=== PATIENT | female | born 1960 | race Caucasian/White ===

== ENCOUNTER 2020-07-06 07:28 | Outpatient (CLI) | payer OTHER, SELFPAY ==
--- NOTE | ~2020-07-06 | MR_ITS ---
EXAMINATION: MR knee RT wo con DATE: 07/06/2020 08:28 INDICATION: Right knee pain. TECHNIQUE: Magnetic resonance imaging (MRI) of the right knee was performed without intravenous contr ast. Sequences included axial PD-weighted FS FSE, coronal PD-weighted FSE and PD-weighted FS FSE, sag ittal PD-weighted FSE, and sagittal T2-weighted FS FSE. COMPARISON: Right knee radiographs 06/30/2020 FINDINGS: Medial compartment: There is a vertical tear of the posterior horn of medial meniscus. There is partial-thickness cartila ge loss of tibial condyle, deep at the medial articular surface with mild subchondral edema-like sign al intensity. There is full-thickness cartilage loss of femoral condyle at the central articular surf jaylon with moderate subchondral edema-like marrow signal intensity and subchondral cysts. There is exte nsive partial thickness cartilage loss of femoral condyle. Osteophytes are noted. Lateral compartment: Lateral meniscus is normal. There is cartilage surface irregularity of tibial condyle and femoral con dyle. Marginal osteophytes are noted. Patellofemoral compartment: There is full-thickness cartilage loss of patella involving the medial facet and median ridge with mi ld subchondral edema-like marrow signal intensity. There is shallow partial-thickness cartilage loss of patellar lateral facet with mild subchondral edema-like marrow signal intensity. There is deep par tial thickness cartilage loss of lateral trochlea. Osteophytes are noted. Ligaments and tendons: The anterior and posterior cruciate ligaments are normal. Medial collateral ligament and lateral mikey ateral ligament complex are normal. There is mild patellar tendinopathy. Fluid: There is a moderate-sized knee joint effusion. There is trace fluid in a Medley's cyst. There is mild prepatellar and superficial infrapatellar bursitis. Osseous/other: There is a 16 mm lesion of increased T2-weighted signal intensity in medial femoral condyle without c orrelate on radiographs, most likely an enchondroma. IMPRESSION: 1. Severe chondrosis of medial and patellofemoral compartments and mild chondrosis of lateral compart ment. 2. Tear of medial meniscus. 3. Moderate-sized knee joint effusion. 4. 16 mm lesion in medial femoral condyle without correlate on radiographs, most likely an enchondrom a. Reviewed, dictated and finalized at location A. [facility] IMPRESSION: 1. Severe chondrosis of medial and patellofemoral compartments and mild chondro sis of lateral compartment. 2. Tear of medial meniscus. 3. Moderate-sized knee joint effusion. 4. 16 mm lesion in medial femoral condyle without correlate on radiographs, mos t likely an enchondroma.
== END 2020-07-06 07:29 | disposition home or self-care (01) ==
PROVIDERS: PCP Internal Medicine; Visit Provider Orthopaedic Surgery
DX: M25.461 Effusion, right knee (principal); S83.241A Other tear of medial meniscus, current injury, right knee, initial encounter; X58.XXXA Exposure to other specified factors, initial encounter
CPT/HCPCS: 73721

== ENCOUNTER 2022-06-02 09:13 | Outpatient (CLI) | payer OTHER, SELFPAY ==
--- NOTE | 2022-06-02 11:30 | NEURO_ITS ---
Impression: # History of left carpal tunnel and cubital tunnel release. c/o residual numbness and pain # No Carpal Tunnel Syndrome. # Left ulnar neuropathy across the elbow. # Needle/EMG mildly neurogenic in left ADM. # Clinical correlation recommended. Motor Nerve Conduction Upper Extremities Median Nerve Conduction Velocity (m/sec) Terminal Latency (msec) Response Voltage(mV) Elbow-Wrist Wrist Elbow Wrist Right Left 61 3.1 2 3 Ulnar Nerve Conduction Velocity (m/sec) Terminal Latency (msec) Response Voltage(mV) Above Elbow Below Elbow Wrist Above Elbow Below Elbow Wrist Right Left 49 68 2.5 5 6 9 F-Wave Latency Median (ms) Ulnar (ms) Right Left 27.6 27.0 Sensory Nerve Conduction Upper Extremities Median Nerve Stimulation Terminal Latency (msec) Wrist/Digit Response Voltage (uV) Wrist Right Left 2.6/2.7 88/42 Ulnar Nerve Stimulation Terminal Latency (msec) Wrist/Digit Response Voltage (uV) Wrist Right Left 2.7 42 Radial Nerve Terminal Latency (msec) Response Voltage(mV) Right Left 1.8 33 Left Right Muscles Examined Fibrillation Fasciculation Scarcity Voltage Duration Left Right Left Right Left Right Left Right Left Right Deltoid Biceps X Brachioradialis Triceps X Pronator Teres X Ext Indicis X Ext Digitorum X Abd Poll Brev X 1st Dorsal Interosseus X Abd Dig MIn + >12MS MTDD
== END 2022-06-02 09:14 | disposition home or self-care (01) ==
PROVIDERS: PCP Internal Medicine; Visit Provider Nurse Practitioner
DX: R20.0 Anesthesia of skin (principal); G56.22 Lesion of ulnar nerve, left upper limb
CPT/HCPCS: 95886; 95909

== ENCOUNTER 2025-05-21 09:14 | Outpatient (CLI) | payer OTHER, SELFPAY ==
--- OUTSIDE RECORDS SUMMARY | 2009-12-16 08:45 | XMS_ITS | Continuity of Care Document ---
Author Organization [facility] Address [address] [place] [address] [address] [place] [address] Phone Care Team Providers Care Rod Buster Name Role Phone Condon OD, Saravanan Unavailable Unavailable Procedures Procedure Date Eye Exam & Treatment Refraction Eye Exam & Treatment Refraction Advance Directives Directive Yes / No Effective Date File Name No Information Encounters Encounter Description Practice Location Reason(s) For Visit Diagnoses Date Provider Providers Copied on Encounter [facility], [address] [place] [address] [address], [place], [place], [id number], tel:[phone] [facility] No Information Damir-0 2-201 0 Condon OD Saravanan. [address] [facility] , [address], [place], [address], [place]. tel:[phone] [facility], [address] [place] [address] [address], [place], [place], [id number], tel:[phone] [facility] No Information 0-200 8 Condon OD Saravanan. [address] [facility] , [address], [place], [address], [place]. tel:[phone] Family History Family Member Type Diagnosis Age At Onset No Information Payers Payer name Insurance type Covered constitution party ID Authorjamara kathi(s) Medicaid [facility] [id number] Social History Type Description Quantity Date Captured Comments Sex Female Smoking Status No Information Chief Complaint And Reason For Visit No Information Reason For Referral Reason For Referral No Information History Of Present Illness Encounter Date Complaint History Of Prese nt Illness No Information Functional Status Date Functional Assessmen t No Information Instructions Date Instruction Additional Infor mation No Information Assessments Type Assessment Date No Information Patient Care Teams Name Effective Dates (start - stop) Status Members No Information
--- OUTSIDE RECORDS SUMMARY | 2025-05-21 09:52 | XMS_ITS | Encounter Summary ---
Author Organization [facility] Address [address] [place] [address] Care Team Providers Care Parlor Chaperone Name Role Phone Daniella Ortiz MD Primary Care Provider [phone] Encounter Details Date Type Department Care Team (Late st Contact Info) Description 09/20/2019 Telephone [facility] [address] [place] [address] Jeffrey Varghese MD [address] OF PLASTIC SURGERY [place], [place] [id number] Social History Tobacco Use Types Packs/Day Years Used Date Smoking Tobacco: Never Smokeless Tobacco: Never Alcohol Use Standard Drinks/Week Comments No 0 (1 standard drink = 0.6 oz pur e alcohol) Comments No Sex and Gender Information Value Date Recorded Sex Assigned at Not on file Legal Sex Female 11:43 AM BACK PADDER Gender Identity Not on file Sexual Orientation Not on file documented as of this encounter Miscellaneous Notes * Telephone Encounter - Laura Olmedo - 09/20/2019 10:33 AM CST Per Sumanth's prior authorization list, cpt codes: 01406, 95550, 11465, and 86640 do not require prior authorization. Patient is scheduled for these procedures with Dr. Varghese on 11/11/19. Laura Nelson [phone] PADDER documented in this encounter Plan of Treatment Not on file documented as of this encounter Goals Goal Patient Goal Type Associated Problems Recent Progress Patient-Stated? Author Mobility General On track(01/14/20 21 9:38 AM CDT) Radha Ruby RN Note: Expected end date: 07/17/2019 The goal is to maintain or improve your mobility at the optimum level for you. Interventions: documented as of this encounter Visit Diagnoses Not on filedocumented in this encounter Care Teams Parlor Chaperone Relationship Specialty Start Date End Date Daniella Ortiz MD [address] [place] [address] PCP - General 10/26/15 documented as of this encounter
--- OUTSIDE RECORDS SUMMARY | 2025-05-21 09:52 | XMS_ITS | Encounter Summary ---
Author Organization [facility] Address [address] [place] [address] Care Team Providers Care Germination Testing Manager Name Role Phone Daniella Ortiz MD Primary Care Provider Reason for Visit * Reason Onset Date Comments General 07/02/2019 Encounter Details Date Type Department Care Team (Late st Contact Info) Description 07/02/2019 Telephone [facility] [address] [place] [address] [place] [address] [place] [phone] General Social History Tobacco Use Types Packs/Day Years Used Date Smoking Tobacco: Never Smokeless Tobacco: Never Alcohol Use Standard Drinks/Week Comments No 0 (1 standard drink = 0.6 oz pur e alcohol) Comments Unknown Sex and Gender Information Value Date Recorded Sex Assigned at Not on file Legal Sex Female 11:43 AM FITNESS SPECIALIST Gender Identity Not on file Sexual Orientation Not on file documented as of this encounter Miscellaneous Notes * Telephone Encounter - Sangeetha Atwood - 07/11/2019 3:45 PM CST Patient called and was asking when she should stop wearing the socks patient says she is on her feet all the time. I told her to wear the socks till she comes back again which is 08/22/2019. Sangeetha Atwood MA. ESS SPECIALIST * Telephone Encounter - Sangeetha Atwood - 07/11/2019 1:31 PM CST Called patient LM to call the office back. Sangeetha Atwood MA. ESS SPECIALIST * Telephone Encounter - Martita Patel - 07/11/2019 1:06 PM CST Pt called wanting to know how long she is to wear the compression socks? Please advise ESS SPECIALIST * Telephone Encounter - Delmar Hoover - 07/04/2019 3:41 PM CST Pt called in checking on whether her report and diagnosis was suppose to be sent to her foot doctor. Her foot doctor is, Dr. Dawkins. Please Advise. ESS SPECIALIST documented in this encounter Plan of Treatment Not on file documented as of this encounter Goals Goal Patient Goal Type Associated Problems Recent Progress Patient-Stated? Author Mobility General On track(01/14/20 21 9:38 AM CDT) Radha Ruby, RN Note: Expected end date: 07/17/2019 The goal is to maintain or improve your mobility at the optimum level for you. Interventions: documented as of this encounter Visit Diagnoses Not on filedocumented in this encounter Care Teams Germination Testing Manager Relationship Specialty Start Date End Date Daniella Ortiz MD [address] [place] [phone] PCP - General 10/26/15 documented as of this encounter
--- OUTSIDE RECORDS SUMMARY | 2025-05-21 09:52 | XMS_ITS | Encounter Summary ---
Author Organization [facility] Address [address] [facility] [place] [address] Care Team Providers Care Punch Out Crew Member Name Role Phone Daniella Ortiz MD Primary Care Provider [phone] Reason for Visit * Reason Onset Date Comments General 07/24/2019 Encounter Details Date Type Department Care Team (Late st Contact Info) Description 07/24/2019 Telephone [facility] [address] [place] [address] [place] [address] [place] [phone] General Social History Tobacco Use Types Packs/Day Years Used Date Smoking Tobacco: Never Smokeless Tobacco: Never Alcohol Use Standard Drinks/Week Comments No 0 (1 standard drink = 0.6 oz pur e alcohol) Comments Unknown Sex and Gender Information Value Date Recorded Sex Assigned at Not on file Legal Sex Female 11:43 AM FREIGHT ELEVATOR OPERATOR Gender Identity Not on file Sexual Orientation Not on file documented as of this encounter Miscellaneous Notes * Telephone Encounter - Francis Maria MD - 07/25/2019 1:13 PM CST Called pt back. LVM with diagnosis and tx. 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 Wear compression stockings daily and apply TAC ointment BID PRN. If she calls back, she will probably want to know the name of her condition. Francis Maria MD Dermatology Resident, PGY-3 07/25/2019 1:14 PM GHT ELEVATOR OPERATOR * Telephone Encounter - Delmar Hoover - 07/24/2019 10:02 AM CST Pt called in wanting to know if she can pick her paperwork for her diagnosis at the same time as her appt. He diagnosis is concerning her foot. Please Advise. GHT ELEVATOR OPERATOR documented in this encounter Plan of Treatment Not on file documented as of this encounter Goals Goal Patient Goal Type Associated Problems Recent Progress Patient-Stated? Author Mobility General On track(01/14/20 9:38 AM CDT) No Radha Jalloh RN Note: Expected end date: 07/17/2019 The goal is to maintain or improve your mobility at the optimum level for you. Interventions: documented as of this encounter Visit Diagnoses Not on filedocumented in this encounter Care Teams Punch Out Crew Member Relationship Specialty Start Date End Date Daniella Ortiz MD [address] [place] [address] PCP - General 10/26/15 documented as of this encounter
--- OUTSIDE RECORDS SUMMARY | 2025-05-21 09:52 | XMS_ITS | Clinical Summary ---
Author Organization [facility] Address [address] [place] [address] Care Team Providers Care Weather Stripper Name Role Phone Daniella Ortiz MD Primary Care Provider [phone] Source Comments [facility] Affiliates and Associated Physician Practices is amultiple site organization consisting of ambulatory clinics and hospital sitesin [place], [place], [place] and [place]. This disclosure is being madepursuant to the Care Everywhere program and may not contain all information available regarding this patient. Last updated 18.[facility] Allergies Active Allergy Reactions Criticality Noted Date Comments Latex Rash Medium 02/25/2019 Loratadine Dizziness,Headache Medium 06/20/2019 Naproxen Skin Reactions Medium 10/26/2015 Penicillins Skin Reactions Medium 10/26/2015 Medications * Be aware that medications may not be up to date on this document. Alwaysverify current medications with the patient. amLODIPine (NORVASC) 10 MG tablet amlodipine 10 mg tablet Active lisinopril (PRINIVIL; ZESTRIL) 40 MG tablet lisinopril 40 mg tablet Active multivitamins (ONE A DAY) capsule Take 1 capsule by mouth once daily Active triamcinolone acetonide (KENALOG) 0.1 % ointmentIndicat ions:Schamberg disease APPLY TO AFFECTED AREA ON LEGS AND FEET TWICE DAILY 454 g 2 0 Active GNP ALCOHOL SWABS 70 % 9 Active TRUEPLUS LANCETS 33G MISC 9 Active vitamin D3 (CHOLECALCIFERO L) 25 MCG (1000 UNITS) tablet Take by mouth once daily Active ibuprofen (MOTRIN) 600 MG tablet Take 1 tablet by mouth 3 times daily 40 tablet 4 0 Active blood glucose (ONETOUCH ULTRA) test strip Use 1 strip as instructed 2 times daily Active omeprazole (PRILOSEC) 20 MG capsule omeprazole 20 mg capsule,delayed release TAKE 1 CAPSULE BY MOUTH ONCE DAILY 30 MINUTES BEFORE A MEAL Active docusate sodium (COLACE) 100 MG capsule Take 1 (one) capsule by mouth once daily as needed for Constipation 14 capsule 1 Active meloxicam (MOBIC) 7.5 MG tabletIndicatio ns:Osteoarthrit is Take 1 (one) tablet by mouth once daily Reasons: Joint Damage causing Pain and Loss of Function 60 tablet 2 1 Active glimepiride (AMARYL) 1 MG tablet 1 Active buPROPion SR 12hr (WELLBUTRIN-SR) 150 MG tablet bupropion HCl SR 150 mg tablet,12 hr sustained-releas e TAKE 1 TABLET BY MOUTH ONCE DAILY WITH MEALS FOR 30 DAYS Active gabapentin (NEURONTIN) 300 MG capsuleIndicati ons:Pain of right hand Take 1 (one) capsule by mouth 3 times daily 90 capsule 1 2 Active Active Problems Problem Noted Date Diagnosed Date 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 Cubital tunnel syndrome on right 06/08/2020 Preop examination Carpal tunnel syndrome, right Family History Medical History Relation Name Comments COPD - Chronic Obstructive Pulmonary Disease Father Status: Cancer Mother Status: d Relation Name Status Comments Father Mother Social History Tobacco Use Types Packs/Day Years Used Date Smoking Tobacco: Never Smokeless Tobacco: Never Alcohol Use Standard Drinks/Week Comments No 0 (1 standard drink = 0.6 oz pur e alcohol) Comments No Sex and Gender Information Value Date Recorded Sex Assigned at Not on file Legal Sex Female 11:43 AM DECK MOLDER Gender Identity Not on file Sexual Orientation Not on file Last Filed Vital Signs Vital Sign Reading Time Taken Comments Blood Pressure 127/80 12/29/2020 1:06 PM CDT Pulse 80 12/29/2020 1:06 PM CDT Temperature 36.7 C (98 F) 12/29/2020 1:06 PM CDT Respiratory Rate 20 12/29/2020 1:06 PM CDT Oxygen Saturation 96% 12/29/2020 1:06 PM CDT Inhaled Oxygen Concentration - - Weight 99.8 kg (220 lb) 01/06/2022 1:08 PM CDT Height 157.5 cm (5' 2) 01/06/2022 1:08 PM CDT Body Mass Index 40.24 01/06/2022 1:08 PM CDT Plan of Treatment Health Maintenance Due Date Last Done Comments BONE DENSITY TESTING 1960 COLOGUARD (AGES 45-75) - COLON CA SCREENING 1958 COLON MONITORING 1958 COLONOSCOPY - COLON CA SCREENING 1958 CT COLONOGRAPHY - COLON CA SCREENING 1958 Colorectal Cancer Screening 1958 FIT - COLON CA SCREENING 1958 FLEX SIG - COLON CA SCREENING 1958 LIPID TESTING 1958 MAMMOGRAM 1958 HEPATITIS C SCREENING 06/18/1976 DTAP/TDAP/TD VACCINES (1 - Tdap) 1977 PNEUMOCOCCAL VACCINE 50+ (1 of 1 - PCV) 2008 ZOSTER VACCINE (1 of 2) 2008 SCREENING FOR DIABETES 12/30/2023 , 12/29/2020, 05/19/2020, Additional history exists DEPRESSION SCREENING 07/17/2024 COVID-19 VACCINE ( - season) 2025 INFLUENZA VACCINE (#1) 2025 Respiratory Syncytial Virus (RSV) Vaccine Pt: or over 60 yrs (1 - 1-dose 75+ series) 2033 HEPATITIS B VACCINE Aged Out No longe r eligible based on patient's age to complete this topic HIB VACCINE Aged Out No longer eligi ble based on patient's age to complete this topic HPV VACCINE Aged Out No longer eligi ble based on patient's age to complete this topic MENINGOCOCCAL (Group B) VACCINE SHARED DECISION-MAKING Aged Out No longer eligible based on patient's age to complete this topic MENINGOCOCCAL GROUPS A/C/Y/W VACCINE Aged Out No longer eligible based on patient's age to complete this topic Goals Goal Patient Goal Type Associated Problems Recent Progress Patient-Stated? Author Mobility General On track(01/14/20 9:38 AM CDT) No Radha Jalloh RN Note: Expected end date: 07/17/2019 The goal is to maintain or improve your mobility at the optimum level for you. Interventions: Medical Devices Implanted Type Area Electronic Musical Instrument Repairer Device Identifier Shelf Expiration Date Model / Serial / Lot Plate Comp Shtng Ulna Ostm Bone Implanted:Qty: 1 on 12/23/2019 by Jeffrey Varghese MD at [facility] [employer] UOCP / / Screw 3.2mm 12mm Hex Cortx Nonster Ankl Implanted:Qty: 2 on 12/23/2019 by Jeffrey Varghese MD at [facility] [employer] HEX3.2-12 / / Scrw Lag Lg 3.2mm X 16mm Implanted:Qty: 1 on 12/23/2019 by Jeffrey Varghese MD at [facility] [employer] LAG3.2-16 / / Screw 3.2mm 10mm Lck Frarm Elb Lg Bone Implanted:Qty: 3 on 12/23/2019 by Jeffrey Varghese MD at [facility] [employer] LCBS3.2-10 / / Screw 3.2mm 12mm Lck Frarm Elb Lg Bone Implanted:Qty: 1 on 12/23/2019 by Jeffrey Varghese MD at [facility] [employer] LCBS3.2-12 / / Prtc 7mm Axoguard Tissue 40mm Prcn Xclr Implanted:Qty: 1 on 12/23/2019 by Jeffrey Varghese MD at [facility] [employer] 04/20/2020 [id number] / / [id number] Integra Neuragen Nerve Guide Implanted:Qty: 2 on 05/19/2020 by Hamilton Valera MD at [facility] Left: Wrist Integra clipkitciences Gabriela 03/16/2022 [id number] / / [id number] Integra Neuragen Nerve Guide Implanted:Qty: 1 on 05/19/2020 by Hamilton Valera MD at [facility] Left: Elbow Integra [employer]ciences Gabriela 04/15/2022 [id number] / / [id number] Integra Neuragen Nerve Guide Implanted:Qty: 1 on 05/19/2020 by Hamilton Valera MD at [facility] Left: Elbow Integra [employer] Gabriela 03/16/2022 [id number] / / [id number] Neuragen Nerve Guide Implanted:Qty: 3 on 12/29/2020 by Hamilton Valera MD at [facility] Right: Arm Integra [employer] Gabriela 05/16/2022 [id number] / / [id number] Procedures Procedure Name Priority Date/Time Associated Diagnosis Comments GLUCOSE - POINT OF CARE Routine 12/29/2020 6:05 AM CDT from Last 3 Months or Most Recently Relevant to Health Maintenance Results * (ABNORMAL) GLUCOSE - POINT OF CARE (12/29/2020 6:05 AM CDT) [facility] Glucose WB/POC 118(H) 70 - 106 mg/dL 12/29/2020 6:14 AM CDT [facility] Specimen Type Venous 12/29/2020 6:14 AM CDT [facility] Blood BLOOD SPECIMEN / Unknown 12/29/2020 6:05 AM CDT 12/29/2020 6:14 AM CDT Hamilton Valera MD LAB - POINT OF CARE ORDERABLES F inal Result [facility] [address] [place], [place] [id number] from Last 3 Months or Most Recently Relevant to Health Maintenance Insurance [facility] Advance Directives * Full Code (Latest Code Status on File) Date Activated Date Inactivated Comments 05/19/2020 6:07 AM 05/19/2020 2:04 PM Care Teams Weather Stripper Relationship Specialty Start Date End Date Daniella Ortiz MD [address] [place] [phone] PCP - General 10/26/15
--- NOTE | 2025-05-21 10:20 | NEURO_ITS ---
Impression: # Complains of left elbow pain. ? # No Carpal Tunnel Syndrome. ? # Subtle left Ulnar Neuropathy. ? # Normal Needle/ EMG exam. ? # Clinical correlation recommended. Nerve Conduction Studies ?Stim Site NR Peak (ms) P-T Amp (?V) Site1 Site2 Delta-P (ms) Dist (cm) Maxwell (m/s) Left Median Anti Sensory (2-3nd Digit) Wrist ? 2.8 41.0 Wrist 2-3nd Digit 2.8 14.0 50 Wrist ? 2.8 42.3 Wrist 2-3nd Digit 2.8 14.0 50 Left Radial Anti Sensory (Base 1st Digit) Wrist ? 1.9 25.7 Wrist Base 1st Digit 1.9 0.0 Left Ulnar Anti Sensory (5th Digit) Wrist ? 2.6 23.9 Wrist 5th Digit 2.6 14.0 54 ?Stim Site NR Onset (ms) O-P Amp (mV) Site1 Site2 Delta-0 (ms) Dist (cm) Maxwell (m/s) Left Median Motor (Abd Poll Brev) Wrist ? 3.6 1.9 Elbow Wrist 5.2 29.0 56 Elbow ? 8.8 2.1 Left Ulnar Motor (Abd Dig Minimi) Wrist ? 2.6 12.5 A Elbow Wrist 5.5 30.0 55 A Elbow ? 8.1 7.8 B Elbow Wrist 3.7 21.0 57 B Elbow ? 6.3 7.9 F Wave Studies ?NR F-Lat (ms) L-R F-Lat (ms) Left Median (Mrkrs) (Abd Poll Brev) ? 27.74 Left Ulnar (Mrkrs) (Abd Dig Min) ? 26.80 Electromyography ?Side Muscle Nerve Root Ins Act Fibs Amp Dur Recrt Comment Left 1stDorInt Ulnar C8-T1 Nml Nml Nml Nml Nml Left Ext Indicis Radial (Post Int) C7-8 Nml Nml Nml Nml Nml Left Ext Digitorum Radial (Post Int) C7-8 Nml Nml Nml Nml Nml Left BrachioRad Radial C5-6 Nml Nml Nml Nml Nml Left PronatorTeres Median C6-7 Nml Nml Nml Nml Nml Left Abd Poll Brev Median C8-T1 Nml Nml Nml Nml Nml Left ABD Dig Min Ulnar C8-T1 Nml Nml Nml Nml Nml Left FlexPolLong Median (Ant Int) C7-8 Nml Nml Nml Nml Nml Left Abd Poll Long Radial (Post Int) C7-8 Nml Nml Nml Nml Nml
== END 2025-05-21 09:15 | disposition home or self-care (01) ==
LOC: ANHNEURO 09:15
PROVIDERS: PCP Internal Medicine; Visit Provider Internal Medicine
DX: M25.522 Pain in left elbow (principal)
CPT/HCPCS: 95886; 95909

== ENCOUNTER 2025-07-09 13:23 | Outpatient (CLI) | payer OTHER, SELFPAY ==
--- NOTE | ~2025-07-09 | MR_ITS ---
EXAMINATION: MR ankle LT wo con DATE: 07/09/2025 14:11 INDICATION: Osteochondral defect of the talus TECHNIQUE: Magnetic resonance imaging (MRI) of the left ankle was performed without intravenous contrast. Sequences included sagittal, coronal, and axial proton-density weighted fast spin echo without and with fat saturation. COMPARISON: None. FINDINGS: Medial ankle ligaments: Deep and superficial deltoid ligaments as well as the spring ligament are normal. Lateral ankle ligaments: The anterior and posterior inferior tibiofibular ligaments are normal. The anterior talofibular, calcaneofibular and posterior talofibular ligaments are normal. Tendons: Mild distal Achilles enthesopathy with tiny enthesophyte at its calcaneal insertion. There is prominent marrow edema at the bipartite os peroneum with surrounding mild tenosynovitis which can be seen is internal os perineum syndrome.. The peroneus longus tendon is otherwise normal. The tibialis anterior and extensor hallucis longus and extensor digitorum longus tendons are normal. The tibialis posterior, flexor digitorum longus and flexor hallucis longus tendons are normal. Plantar fascia: Small plantar calcaneal enthesophyte at the calcaneal origin of the plantar aponeurosis. There is mild fusiform thickening along the central component of the plantar aponeurosis centered 3 cm distal to the origin and suspicious for small plantar fibroma. Plantar aponeurosis is otherwise unremarkable. Bones/other: Mild osteoarthritis at the left ankle with small region of partial-thickness chondral ulceration with underlying mild subarticular cystlike change at the the medial rim of the talar dome. Additional mild osteoarthritis at a few of the tarsal metatarsal joints. Fluid: Physiologic amount fluid in the joint spaces. No abnormal fluid collections. IMPRESSION: 1. 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 2. Comment edema and a bipartite os peroneum with mild surrounding tenosynovitis which can be seen in the setting of os peroneum syndrome. 3. Focal mild fusiform thickening of the central component of the plantar aponeurosis suspicious for small plantar fibroma. . Reviewed, dictated and finalized at location A. E STAFF IMPRESSION: 1. 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 2. Comment edema and a bipartite os peroneum with mild surrounding tenosynoviti s which can be seen in the setting of os peroneum syndrome. 3. Focal mild fusiform thickening of the central component of the plantar apone urosis suspicious for small plantar fibroma. .
--- OUTSIDE RECORDS SUMMARY | 2025-07-09 13:28 | XMS_ITS | Data Portability ---
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 She states that she woke up and had pain in the elbow as well as numbness and tingling that shot down her arm to her pinky and ring finger. She denies any injury. Since then this pain has been keeping her awake at night. She states she had cubital tunnel release on this arm many years ago by Dr. Kaplan. She has not had any issues since the surgery but this feels the same as her symptoms before surgery. She has not taken any medications for pain. Imaging: Xrays reveiwed of the left elbow show no acute bony abnormality or fracture. Physical exam: Well healed surgical scar at cubital tunnel. No pain with palpitation around elbow. No restrictions in ROM. Reports decreased sensation in ring and small fingers. No issues with wrist or hand ROM. We discussed that she may be experiencing re-entrapment of the nerve. This may be from inflammation or scar tissue build up. We will will start with anti-inflammatori es and PT exercises. She can take NSAIDs as needed. We will order PT to work on stretching and scar tissue breakdown. We also talked about bracing the elbow at night to keep it straight. We will see her back in 4-6 weeks to check her progress. If she still has symptoms at that time we can discuss trying gabapentin vs nerve conduction study. She sees her primary next week and will get an A1c drawn. Not available 02/17/2025 12:13:50 04/01/2025 04/01/2025 64-year-old patient presents today for pain in the elbow as well as numbness and tingling that shoots down her arm to her pinky and ring finger. She states she had cubital tunnel release on this arm many years ago. She has not had any issues since the surgery but this feels the same as her symptoms before surgery. She has been attending PT but states it is not helpful. Medications are also not helpful. She now has pain on the lateral side of the elbow as well. Physical exam: Well healed surgical scar at cubital tunnel. No pain with palpitation around elbow. No restrictions in ROM. Positive tinels at elbow. Reports decreased sensation in ring and small fingers. Tenderness with palpitation over lateral epicondyle. Pain with resisted wrist extension. We discussed that she may be experiencing re-entrapment of the nerve and a new problem of lateral epicondylitis. Therapy and NSAIDs have not been helpful. We discussed we could obtain a nerve conduction study to assess her ulnar nerve. She is unsure she wants to do this. We will place the order and she can decide. For the lateral epicondylitis we discussed trying a cortisone injection. She was not interested in this. We recommend trying voltaren gel. We will see her back as needed. Not available 04/02/2025 12:24:35 04/24/2025 04/24/2025 This note is dictated and transcribed by [employer]. [employer] variances may occur. Despite proofreading, typographical errors may occur. Occasional wrong-word or '[id number]' substitutions may have occurred due to the inherent limitations of voice recording. Read the chart carefully and recognize, using context, where substitutions have occurred. Not available 05/12/2025 10:25:51 05/20/2025 05/20/2025 This note is dictated and transcribed by [employer]. [employer] variances may occur. Despite proofreading, typographical errors may occur. Occasional wrong-word or 'lbpak-u-[id number]' substitutions may have occurred due to the inherent limitations of voice recording. Read the chart carefully and recognize, using context, where substitutions have occurred. Not available 05/20/2025 16:17:26 06/02/2025 06/02/2025 64-year-old female presents for follow-up of her left elbow. We sent her for EMG last time history reported some numbness and tingling. She no longer reports that is bothering her, but she still has pain over the lateral epicondyle. She also got stung by a bee on Monday on her upper arm and says she gets a lot of pain, redness, swelling, and numbness and tingling radiating from that as well. She has tenderness palpation of the lateral epicondyle. Pain with resisted wrist extension. On her upper arm there is area of erythema and swelling consistent with where she says she was stung by a bee. EMG results demonstrate mild ulnar neuropathy, otherwise normal EMG She has lateral epicondylitis we will treat her conservatively with anti-inflammatori es and physical therapy. Order for meloxicam, as well as Voltaren and order for physical therapy were given. With regards to her bee sting, if it does not improve over time then she should follow up with her PCP for that. Follow up PRN. [email or web address] Not available 06/02/2025 11:16:14 Plan of Treatment Reminders Order Date Submit Date Provider Last Modified By Organization Details Last Modified Time Details Appointments Establish ed Patient 10 2025 03:20P Irlanda Owens DPM Not available Not available Not available Lab None recorded. Referral physical therapist referral - Please schedule for L elbow. thanks 2024 025 [email or web address] [facility], [address] [place], [address], 06/03/2025 08:24:35 physical therapist referral - patient to schedule 2024 [email or web address], [address] [place], [address], 02/18/2025 15:49:52 Procedures nerve conductio n study/EMG (PROC) - upper extremity [address] (Cardiology & Emg), [address] [place] [address] [place], [address], 04/01/2025 14:55:48 Surgeries None recorded. Imaging MRI, ankle, w/o contrast - PLEASE CALL PT TO SCHEDULE AN APPT....T TARA YOU!!! [address] [facility], [address], [place], [address], 07/05/2025 04:01:33 XR, ankle, 3 or more view 2024 025 [email or web address] [facility] [place], [address], [place], [address], 05/12/2025 10:27:49 XR, elbow 2024 025 [email or web address] [facility] [place], [address] [place] [address], [address], [place], [address], 02/17/2025 12:12:35 Medication Orders meloxicam 15 mg tablet [address] [facility], [address] [place] [address], [place], [address], 06/03/2025 08:24:35 Patient TargetsNo targets recorded. Patient InstructionsNo instructions recorded. Reason for Referral Physical Therapist Referral for Pain of elbow region patient to schedule Referring Physician: Monet May, Orthopedic Surgery, Encounter Date: 02/17/2025 Physical Therapist Referral for Pain of elbow region L elbow Please schedule for L elbow. thanks Referring Physician: Chintan Cates, Orthopedic Surgery, Encounter Date: 06/02/2025 Results Created Date Observation Date Name Description Value Unit Range Abnormal Flag Note LastModifiedBy Organization Detail LastModifiedTime 01/24/20 25 XR, foot, 3 or more view No observ ation record ed. [email or web address] [facility] Moser [address], [address], 01/23/2025 15:47:29 02/18/20 25 XR, elbow No observ ation record ed. [email or web address] [facility] [place] [address], [address], [place], [address], 02/17/2025 12:12:32 05/12/20 25 XR, ankle , 3 or more view No observ ation record ed. [email or web address] [facility] [place] [address], [place], [address], 05/12/2025 10:27:47 05/29/20 25 05/21/2025 elect romyo gram + nerve condu ction study No observ ation record ed. [email or web address] Not Available 05/29 11:35:43 Result Notes None recorded. Problems Name Problem SNOMED Code Status Onset Date Resolution Date Notes Provider Name and Address Organization Details Recorded Time Disorder of shoulder 592369348 Active Not Available [facility] 3 02:45:22 Localized, primary osteoarthr itis of the shoulder region 820987619 Active Not Available [facility] 3 02:45:23 Pain of joint of wrist 942611517 Active Not Available [employer] 3 02:45:23 Partial thickness rotator cuff tear 255468036 Active Not Available [facility] 3 02:45:23 Plantar fasciitis 240064898 Active Not Available [facility] 3 02:45:23 Ankle pain 480616710 Active Not Available [employer] 3 02:45:23 Shoulder joint pain 793777163 Active Not Available [employer] 3 02:45:24 Low back pain 668247519 Active Not Available [facility] 3 02:45:24 Lesion of ulnar nerve 074662000 Active Not Available [facility] 3 02:45:24 Osteoarthr itis 013297170 Active Not Available [employer] 3 02:45:24 Lesion of median nerve 798814988 Active Not Available [facility] 3 02:45:24 Carpal tunnel syndrome 03131262 Active Not Available [facility] 3 02:45:24 Fracture of forearm 84615334 Active Not Available [facility] 3 02:45:25 Postoperat rosamaria visit 227176156 Active 2018 Not Available [facility] 3 02:45:23 Tibialis posterior tendinitis 525813669 Active 2019 Not Available [facility] 3 02:45:23 Diabetes mellitus 64433090 Active 2019 Not Available [facility] 3 02:45:25 Type 2 diabetes mellitus without complicati on 511497225 Active 2020 Not Available [facility] 3 02:45:24 Exostosis of left foot 0903813960113 9100 Active 2020 Not Available [facility] 3 02:45:23 Pain in left foot 4553974549101 07 Active 2020 Not Available [facility] 3 02:45:24 Edema of bone marrow 4587542576269 Active 2020 Not Available [facility] 3 02:45:25 Capsulitis 4964222 Active 2021 Not Available [facility] 3 02:45:25 Sprain of lateral ligament of ankle joint 970935286 Active 2021 Not Available [facility] 3 02:45:23 Pain of right ankle joint 9886374902214 9106 Active 2021 Not Available [facility] 3 02:45:23 Peroneal tendinitis of right lower limb 9623642577286 09 Active 2022 Benjamin Owens DPM [address], [place] [address], [place], [address] , [place] [facility] 3 17:52:09 Bone cyst of right foot 0806917883590 102 Active 2022 Benjamin Owens DPM [address], [place], [address] , [facility] 3 09:31:55 Ganglion cyst of left foot 0815214513636 103 Active 2022 Benjamin Owens DPM [address], [address], [place], [address] , [facility] 3 15:02:16 Plantar fasciitis of left foot 8039634467110 9101 Active 2022 Benjamin Owens DPM [address], [place], [address] , [facility] 3 17:08:59 Ankle pain 660222211 Active 2022 Benjamin Owens DPM [address], [place], [address] , [facility] 3 09:42:47 Bone spur of left ankle 4235999974775 04 Active 2022 Benjamin Owens DPM [address], [place], [address] , [facility] 3 09:43:01 Pain of left knee joint 6021508491007 07 Active 2023 SLIM Contreras, [place] [facility] 4 12:46:56 Postoperat rosamaria care Active 2023 Benjamin Owens DPM [address], [place], [address] , [facility] 4 14:26:57 Foot callus 897878898 Active 2023 Benjamin Owens DPM [address], [address], [place], [address] , [facility] 4 16:55:17 Arthritis 5379313 Active 2023 Candice wilkes, [place] [facility] 4 11:04:30 Ear problem 271362873 Active 2023 Candice Lynn null, [facility] 4 11:04:51 Hyperchole sterolemia 54375481 Active 2023 Candice Lynn null, [facility] 4 11:05:08 Pain of right knee joint 0009732945315 00 Active 2023 FRED Reyes, [facility] 5 12:22:26 Pain of left wrist 8713070598068 02 Active 2023 FRED Reyes, [facility] 4 15:08:58 Pain of left forearm 4160334536685 09 Active 2023 FRED Reyes, [facility] 4 15:09:38 Pain of right heel 8433308760333 105 Active 2023 Benjamin Owens DPM [address], [place], [address] , [facility] 4 15:18:42 Pain of left ankle joint 5690412488492 9103 Active 2023 Benjamin Owens DPM [address], [place], [address] , [facility] 4 15:18:58 Tendinitis of foot 739556938 Active 2023 Benjamin Owens DPM [address], [place], [address] , [facility] 4 15:19:14 Osteoarthr itis of right knee joint 8384255693528 00 Active 2024 FRED Reyes, [facility] 5 11:35:37 Pain of toe of right foot 6184101761390 01 Active 2024 Benjamin Owens DPM [address], [place], [address] , [place] [facility] [employer] 5 15:47:09 Pain of elbow region 86338223 Active 2024 FRED Reyes null, [place] [employer] [facility] [employer] 5 10:27:31 Acute ankle pain 6129020309713 5 Active 2024 Benjamin Owens DPM [address], [place], [address] , [facility] [employer] [facility] [employer] 5 10:26:01 Spur of ankle bone 2063098030399 4108 Active 2024 Benjamin Owens DPM [address], [place], [address] , [employer] [facility] [employer] 5 10:26:12 Osteochond ral defect of talus 914807661 Active 2024 Benjamin Owens DPM [address], [place], [address] , [employer] [facility] [employer] 5 16:17:33 Left Achilles tendinitis 0377044889194 02 Active 2024 Benjamin Owens DPM [address], [place], [address] , [employer] [facility] [employer] 16:20:19 Problem Notes None recorded. Procedures Surgical History Date Name Laterality Status Provider Name and Address Organization Details Recorded Time 04/24/20 25 Joint Injection-Podiatr y completed Benjamin Owens DPM [address], [place], [address], [facility] [employer] [facility] [employer] 04/24/2025 15:31:31 12/27/19 25 Plantar Fascia Injection Right Foot completed Benjamin Owens DPM [address], [place], [address], [employer] [place] [employer] [facility] [employer] [facility] 12/26/2024 14:36:33 11/02/19 24 Callus Debridement, One completed Benjamin Owens DPM [address], [place], [address] [place] [address] [facility] 11/02/2023 16:55:10 Carpal tunnel surgery completed Aby Lea [place] - [facility] 07/31/2023 12:00:53 decompression of ulnar nerve at elbow completed Aby Lea [place] - [facility] 07/31/2023 12:00:59 Foot Surgery completed Aby Lea [place] - [facility] 07/31/2023 12:01:09 delivery completed Ute Lynn [facility] 02/14/2024 11:06:49 Imaging Results None recorded. Procedure Notes None recorded. Medical Equipment None Reported. Allergies Allergen ID Allergen Name Allergen Category Reaction Reaction Severity Criticality Documentation Date Start Date Code Code System Note Provider Name and Address Organization Details Recorded Time 3931 Product containin g penicilli n (product) medicatio n itching Not available Not available 09/14/2022 54695 8001 SNOMED Not Available [facility] 3 02:51:39 3932 latex environme nt,medica tion rash Not available Not available 09/14/2022 93119 91 RxNorm Not Available [facility] 3 02:51:39 3933 Clarinex medicatio n dizziness Not available Not available 09/14/2022 82160 2 RxNorm Not Available [facility] 3 02:51:39 3934 Aleve medicatio n Not available Not available Not available 09/14/2022 65578 1 RxNorm GI distr ess Not Available [facility] 3 02:51:39 90897 loratadin e medicatio n dizziness headache Not available Not available [facility] 05/30/20252018 64561 RxNorm Not Available [facility] - External Data Service - prod 5 08:39:50 94727 naproxen medicatio n Not available Not available [facility] 05/30/20252015 7258 RxNorm unrec ogniz ed react ion (text : Skin React ions, code: [id number]) (from exter nal sour e) Not Available [facility]riana - External Data Service - prod 5 08:39:50 36376 Claritin medicatio n dizziness headache moderate moderate Not available 05/30/202583228 6 RxNorm Not Available [facility] - External [employer] - prod 5 08:42:18 79600 deslorata dine medicatio n Not available Not available Not available 05/30/2025 89731 5 RxNorm Not Available formerly [facility] External Data Service - prod 5 08:42:18 Medications Name Sig Start Date Stop Date Status Note LastModified by Organization Details LastModified Time amoxicill in 500 mg capsule TAKE 1 CAPSULE BY MOUTH EVERY 8 HOURS FOR 5 DAYS 05/29 completed Not Available Not Available Not Available pioglitaz one 15 mg tablet TAKE 1 TABLET BY MOUTH ONCE DAILY AFTER A MEAL active Not Available Not Available No t Available atorvasta tin 40 mg tablet 07/31 completed Not Available Not Available Not Available bupropion HCl SR 150 mg tablet,12 hr sustained -release TAKE 1 TABLET BY MOUTH ONCE DAILY WITH MEALS FOR 30 DAYS 07/31 completed Not Available Not Available Not Available neomycin- polymyxin -hydrocor t 3.5 mg/mL-10, 000 unit/mL-1 % ear solution 05/24 completed Not Available Not Available Not Available atorvasta tin 80 mg tablet TAKE 1 TABLET BY MOUTH ONCE DAILY AT BEDTIME active Not Available Not Available No t Available nystatin 100,000 unit/mL oral suspensio n TAKE 4 ML BY MOUTH 3 TIMES DAILY FOR 10 DAYS,SWI SH,GARGL E AND SWALLOW 07/31 completed Not Available Not Available Not Available gabapenti n 600 mg tablet 10/04 completed Not Available Not Available Not Available doxycycli ne hyclate 100 mg capsule TAKE 1 CAPSULE BY MOUTH ONCE DAILY 12/14 completed Not Available Not Available Not Available cefuroxim e axetil 250 mg tablet 10/04 completed Not Available Not Available Not Available atorvasta tin 20 mg tablet 07/31 completed Not Available Not Available Not Available clindamyc in HCl 300 mg capsule TAKE 1 CAPSULE BY MOUTH EVERY 8 HOURS 04/15 completed Not Available Not Available Not Available atorvasta tin 10 mg tablet 10/04 completed Not Available Not Available Not Available Tab-A-Vit e tablet 10/04 completed Not Available Not Available Not Available azithromy casandra 250 mg tablet TAKE 2 TABLETS BY MOUTH ON DAY 1, AND THEN TAKE 1 TABLET BY MOUTH ONCE A DAY ON DAY 2 THROUGH DAY 5 03/14 completed Not Available Not Available Not Available fluconazo le 150 mg tablet TAKE ONE TABLET BY MOUTH A ONE-TIME DOSE 05/04 completed Not Available Not Available Not Available hydrocodo ne 5 mg-acetam inophen 325 mg tablet TAKE 1 TABLET BY MOUTH EVERY 6 HOURS NEEDED FOR PAIN (MODERAT E 4-6 ON SCALE) 06/25 completed Not Available Not Available Not Available meloxicam 15 mg tablet Take 1 tablet every day by oral route. 2024 active Not Available Not Available Not Avai lable metronida zole 0.75 % (37.5 mg/5 gram) vaginal gel 07/31 completed Not Available Not Available Not Available lisinopri l 20 mg tablet 10/04 completed Not Available Not Available Not Available prednison e 20 mg tablet 10/04 completed Not Available Not Available Not Available metoprolo l succinate ER 100 mg tablet,ex tended release 24 hr TAKE 1 TABLET BY MOUTH ONCE DAILY DIRECTED FOR 90 DAYS active Not Available Not Available No t Available gabapenti n 400 mg capsule 10/04 completed Not Available Not Available Not Available metformin 850 mg tablet 03/06 completed Not Available Not Available Not Available Lantus U-100 Insulin 100 unit/mL subcutane ous solution 10/04 completed Not Available Not Available Not Available pioglitaz one 45 mg tablet TAKE 1 TABLET BY MOUTH ONCE DAILY DIRECTED FOR 30 DAYS 10/04 completed Not Available Not Available Not Available amlodipin e 5 mg tablet 05/24 completed Not Available Not Available Not Available sulfameth oxazole 800 mg-trimet hoprim 160 mg tablet 12/14 completed Not Available Not Available Not Available peg-elect rolyte solution 420 gram oral solution TAKE DIRECTED BY OFFICE 07/31 completed Not Available Not Available Not Available omeprazol e 40 mg capsule,d elayed release active Not Available Not Available Not Available doxycycli ne monohydra te 100 mg tablet Take 1 tablet twice a day by oral route as directed for 5 days. 05/27 completed Not Available Not Available Not Available tramadol 50 mg tablet TAKE 1 TABLET BY MOUTH EVERY 8 HOURS NEEDED 12/14 completed Not Available Not Available Not Available triamcino lone acetonide 0.1 % topical cream APPLY A THIN LAYER TO THE top of the right foot daily prn 10/04 completed Not Available Not Available Not Available glimepiri de 2 mg tablet TAKE 1 TABLET BY MOUTH ONCE DAILY WITH MEALS FOR 30 DAYS 07/31 completed Not Available Not Available Not Available glimepiri de 1 mg tablet TAKE 1 TABLET BY MOUTH ONCE DAILY IN THE MORNING FOR 30 DAYS active Not Available Not Available No t Available amoxicill in 400 mg-potass ium clavulana te 57 mg/5 mL oral suspensio n 04/15 completed Not Available Not Available Not Available meloxicam 7.5 mg tablet Take 1 tablet every day by oral route as needed for 14 days. 12/14 completed Not Available Not Available Not Available oxycodone -acetamin ophen 5 mg-325 mg tablet TAKE 1 TABLET BY MOUTH EVERY 4 HOURS NEEDED FOR PAIN active Not Available Not Available No t Available amoxicill in 875 mg tablet TAKE 1 TABLET BY MOUTH EVERY 12 HOURS 05/29 completed Not Available Not Available Not Available famotidin e 20 mg tablet TAKE 1 TABLET BY MOUTH TWICE DAILY DIRECTED 07/31 completed Not Available Not Available Not Available phenazopy ridine 100 mg tablet TAKE 2 TABLETS BY MOUTH THREE TIMES DAILY FOR 2 DAYS 03/14 completed Not Available Not Available Not Available amlodipin e 10 mg tablet TAKE 1 TABLET BY MOUTH ONCE DAILY active Not Available Not Available No t Available benzonata te 100 mg capsule TAKE 1 CAPSULE BY MOUTH THREE TIMES DAILY NEEDED FOR 10 DAYS 10/18 completed Not Available Not Available Not Available doxycycli ne monohydra te 100 mg capsule TAKE 1 CAPSULE BY MOUTH ONCE DAILY 11/18 completed Not Available Not Available Not Available hydrocodo ne 7.5 mg-acetam inophen 325 mg tablet 11/12 completed Not Available Not Available Not Available cephalexi n 500 mg capsule TAKE 1 CAPSULE BY MOUTH EVERY 12 HOURS 04/15 completed Not Available Not Available Not Available pantopraz ole 40 mg tablet,de layed release TAKE 1 TABLET BY MOUTH TWICE DAILY active Not Available Not Available No t Available metformin 1,000 mg tablet 10/04 completed Not Available Not Available Not Available triamcino lone acetonide 0.1 % topical ointment APPLY TO AFFECTED AREA ON LEGS AND FEET TWICE DAILY 10/04 completed Not Available Not Available Not Available nystatin 100,000 unit/gram topical cream APPLY CREAM TOPICALL Y TO AFFECTED AREA TWICE DAILY 07/31 completed Not Available Not Available Not Available ranitidin e 150 mg tablet 10/04 completed Not Available Not Available Not Available misoprost ol 200 mcg tablet 10/04 completed Not Available Not Available Not Available promethaz ine 25 mg tablet TAKE 1/2 (ONE-EDUARDO F) TABLET BY MOUTH EVERY 6 HOURS NEEDED 07/31 completed Not Available Not Available Not Available diclofena c potassium 50 mg tablet 03/06 completed Not Available Not Available Not Available docusate sodium 100 mg capsule TAKE 1 CAPSULE BY MOUTH ONCE DAILY NEEDED FOR CONSTIPA TION 10/04 completed Not Available Not Available Not Available gabapenti n 300 mg capsule TAKE 1 CAPSULE BY MOUTH THREE TIMES DAILY DIRECTED 07/31 completed Not Available Not Available Not Available omeprazol e 20 mg capsule,d elayed release active Not Available Not Available Not Available diclofena c sodium 75 mg tablet,de layed release TAKE 1 TABLET BY MOUTH TWICE DAILY active Not Available Not Available No t Available hydroxyzi ne HCl 25 mg tablet 03/06 completed Not Available Not Available Not Available mupirocin 2 % topical ointment APPLY OINTMENT TOPICALL Y TWICE DAILY 12/14 completed Not Available Not Available Not Available gabapenti n 100 mg capsule 10/04 completed Not Available Not Available Not Available lorazepam 1 mg tablet 10/04 completed Not Available Not Available Not Available azelastin e 137 mcg (0.1 %) nasal spray USE 1 SPRAY(S) IN EACH NOSTRIL EVERY 12 HOURS 10/04 completed Not Available Not Available Not Available Tylenol-C odeine #3 300 mg-30 mg tablet Take 1 tablet twice a day by oral route for 4 days. 10/04 completed Rx was caleed into pharmacy Not Available Not Available Not Available ibuprofen 600 mg tablet active Not Available Not Available Not Available cefuroxim e axetil 500 mg tablet 07/23 completed Not Available Not Available Not Available levofloxa casandra 500 mg tablet 03/06 completed Not Available Not Available Not Available methylpre dnisolone 4 mg tablets in a dose pack Take 1 dose pk by oral route as directed , for foot and ankle pain. 11/18 completed Not Available Not Available Not Available albuterol sulfate HFA 90 mcg/actua tion aerosol inhaler INHALE 2 PUFFS BY MOUTH EVERY 4 HOURS NEEDED FOR 10 DAYS 03/14 completed Not Available Not Available Not Available losartan 50 mg-hydroc hlorothia zide 12.5 mg tablet active Not Available Not Available No t Available lisinopri l 40 mg tablet TAKE 1 TABLET BY MOUTH ONCE DAILY active Not Available Not Available No t Available fluticaso ne propionat e 50 mcg/actua tion nasal spray,kourtney pension USE 1 SPRAY(S) IN EACH NOSTRIL ONCE DAILY NEEDED 07/31 completed Not Available Not Available Not Available doxycycli ne hyclate 100 mg tablet TAKE 1 TABLET BY MOUTH TWICE DAILY FOR 7 DAYS active Not Available Not Available No t Available Microlet Lancet USE TO CHECK GLUCOSE TWICE DAILY active Not Available Not Available No t Available amoxicill in 875 mg-potass ium clavulana te 125 mg tablet 11/18 completed Not Available Not Available Not Available ezetimibe 10 mg tablet TAKE 1 TABLET BY MOUTH ONCE DAILY active Not Available Not Available No t Available rosuvasta tin 5 mg tablet TAKE 1 TABLET BY MOUTH ONCE DAILY AT BEDTIME 07/31 completed Not Available Not Available Not Available Alcohol Prep Pads APPLY 1 PAD EVERY DAY BY TOPICAL ROUTE DIRECTED FOR 30 DAYS 07/31 completed Not Available Not Available Not Available nitrofura ntoin monohydra te/macroc rystals 100 mg capsule TAKE 1 CAPSULE BY MOUTH TWICE DAILY FOR 5 DAYS 06/25 completed Not Available Not Available Not Available Euflexxa 10 mg/mL (mw 2.4-3.6 million) intra-art icular syringe Inject 2 mL by intra-ar ticular route for 21 days. 11/18 completed Not Available Not Available Not Available Januvia 50 mg tablet TAKE 1 TABLET BY MOUTH ONCE DAILY 10/04 completed Not Available Not Available Not Available Advocate Syringes 0.5 mL 31 gauge x 11/29 completed Not Available Not Available Not Available lancets 30 gauge 10/04 completed Not Available Not Available Not Available OneTouch Delica Plus Lancet 33 gauge USE 1 LANCET TO CHECK GLUCOSE ONCE DAILY active Not Available Not Available No t Available Contour Plus Test Strip USE STRIP TO CHECK GLUCOSE TWICE DAILY active Not Available Not Available No t Available Contour Plus Blue Meter USE TO CHECK GLUCOSE TWICE DAILY active Not Available Not Available No t Available Vitals Date Recorded Body height Body mass index (BMI) Body weight Pain severity - 0-10 verbal numeric rating [Score] - Reported Provider Name and Address Organization Details Last Updated DateTime 02/17/2025 157.48 cm 39.9 kg/m2 62540.14 g 7 Teresa Tello [facility] [employer] [facility] 02/17/2025 10:27:02 Date Recorded Body height Body mass index (BMI) Body weight Pain severity - 0-10 verbal numeric rating [Score] - Reported Provider Name and Address Organization Details Last Updated DateTime 04/01/2025 157.48 cm 39.9 kg/m2 22325.14 g 7 Teresa Tello [facility] [employer] [facility] 04/01/2025 13:53:35 Date Recorded Body height Body mass index (BMI) Body weight Oxygen saturation Body temperature Heart rate Systolic And Diastolic Provider Name and Address Organization Details Last Updated DateTime 157.48 cm 39.9 kg/m2 38639.1 4 g 98 % 98.2 [degF] 73 /min 170/100 mm[Hg] Harry Lim [facility] [employer] [facility] 14:59:46 Date Recorded Body height Body mass index (BMI) Body weight Heart rate Respiratory rate Oxygen saturation Systolic And Diastolic Provider Name and Address Organization Details Last Updated DateTime 157.48 cm 39.9 kg/m2 51405.1 4 g 66 /min 14 /min 98 % 191/102 mm[Hg] Renetta Brown [facility] [employer] [facility] 15:52:05 Date Recorded Body height Body mass index (BMI) Body weight Pain severity - 0-10 verbal numeric rating [Score] - Reported Provider Name and Address Organization Details Last Updated DateTime 06/02/2025 157.48 cm 39.9 kg/m2 00304.14 g 10 Teresa Elisha [facility] 06/02/2025 10:13:53 Social History Question Answer Notes LastModified by Organizat ion Details LastModified Time Tobacco Smoking Status Never Smoker Not Available [facility] 09/14/2022 02:34:41 What Was The Date Of Your Most Recent Tobacco Screening? 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 Family History Relationship Description Onset Age of this Age Resolved Age Notes LastModified by Organization Details LastModified Time Brother Hypertensive disorder [email or web address] Not available 2023 11:06:02 Brother Diabetes mellitus [email or web address] Not available 2023 11:05:42 Sister Diabetes mellitus [email or web address] Not available 2023 11:05:42 Sister Arthritis [email or web address] Not available 02/14/2024 11:05:52 Sister Hypertensive disorder [email or web address] Not available 2023 11:06:05 Sister Family history of malignant neoplasm [email or web address] Not available 2023 11:06:20 Notes:no ent Medical History Condition Response HYPERTENSION Y HIGH CHOLESTEROL / HYPERLIPIDEMIA Y ARTHRITIS Y DIABETES, TYPE Y Gynecological HistoryNo gynecological history recorded. Obstetrics History GPAL:G 0 P 0 0 0 0 Past Encounters Encounter ID Performer Location Encounter Start Date Encounter Closed Date Diagnosis/Indication Diagnosis SNOMED-CT Code Diagnosis ICD10 Code Diagnosis IMO Codes Diagnosis Note [id number] [facility] _[facility]_M IGR[facility]_ DEFAULT_1 _1 , 10/09/2020 00:00:00 10/13/2020 09:13:20 [id number] [facility] _[facility]HE[facility]_M I[facility]_ DEFAULT_1 _1 , 11/13/2020 00:00:00 11/13/2020 15:44:50 [id number] [facility] [address] [place] [address] 01/11/2021 00:00:00 01/12/2021 14:24:48 [id number] [facility] [place] [address] [place] [address] 03/18/2021 00:00:00 03/21/2021 13:32:09 [id number] [facility] [place] [address] [place] [address] 04/15/2021 00:00:00 04/15/2021 15:38:36 [id number] [facility] _ATHENA_M IGRATION_ DEFAULT_1 _1 , 06/08/2021 00:00:00 06/14/2021 10:08:47 [id number] [facility] [place] [address] [place] [address] 06/17/2021 00:00:00 06/20/2021 22:57:19 [id number] [facility] [place] [address] [place] [address] 07/19/2021 00:00:00 07/20/2021 10:11:42 [id number] [facility] [place] [address] [place] [address] 08/26/2021 00:00:00 08/29/2021 17:56:29 [id number] [facility] [place] [address] [place] [address] 10/28/2021 00:00:00 10/29/2021 10:59:57 [id number] [facility] [place] [address] [place] [address] 11/18/2021 00:00:00 11/20/2021 12:22:22 [id number] [facility] [place] [address] [place] [address] 12/16/2021 00:00:00 12/17/2021 07:31:46 [id number] [facility] [place] [address] [place] [address] 01/31/2022 00:00:00 02/01/2022 08:39:40 [id number] [facility] [place] [address] [place] [address] 03/03/2022 00:00:00 03/06/2022 14:50:22 [id number] [facility] [place] [address] [place] [address] 04/28/2022 00:00:00 05/02/2022 11:16:39 [id number] Benjamin Owens DPM [facility] [address] [address] 06/08/2022 00:00:00 06/13/2022 21:03:49 [id number] Benjamin Owens DPM [facility] [address] [address] 08/02/2022 00:00:00 08/10/2022 17:15:49 [id number] Benjamin Owens DPM [facility] [address] [address] 10/04/2022 17:39:51 10/05/2022 11:06:38 Foot pain 17161334 M79.671 as above Plantar fa sciitis of right foot 5673691703 1225406 M72.2 r/o chronic plantar fasciitis of the heel with mrifailed physical therapycon tinue rice therapyfol low-up MRI Peroneal t endinitis of right lower limb 1138749090 41841 M76.71 r/o tendon tear with MRIas above [id number] Benjamin Owens DPM [facility] [place] [address] [address] 10/20/2022 15:43:08 10/26/2022 15:50:39 Plantar fasciitis of right foot 2684532087 6553628 M72.2 MRI reviewed- chronic plantar fasciitis with thickenedt reatment options reviewed in detailpati ent elects to continue with endoscopic plantar fasciotomy secondary to failed conservati ve therapyobt ain surgical clearancef ollow-up after surgical clearance Peroneal t endinitis of right lower limb 3741221899 14012 M76.71 r/o tendon tear with MRI- Negative for tearas above Bone cyst of right foot 0699642565 352064 M85.671 cuboidMRI reviewed patientwil l continue to monitor [id number] Benjamin Owens DPM [facility] [place] [address] [address] 12/13/2022 15:34:54 12/13/2022 16:25:32 Postoperative care 268957912 Z48.89 day 4endoscopi c plantar fasciotomy right foothealin gcontinue postop shoeMinima l weight-efren ringFollow -up in 2 weeks for suture removal [id number] Benjamin Owens DPM [facility] [place] [address] [address] 12/27/2022 14:13:24 12/27/2022 15:16:45 Postoperative care 560076625 Z48.89 2 weeksendos copic plantar fasciotomy right foothealin gsutures removedmay return to normal shoe gearfollow -up as needed Plantar fa sciitis of right foot 2201661400 9587748 M72.2 resolved secondary to endoscopic plantar fasciotomy Return to normal shoeRecomm end over-the-c ounter orthotics- [employer] [id number] Benjamin Owens DPM [facility] [place] [address] [place] [address] 02/13/2023 13:58:03 02/13/2023 15:46:08 Ganglion cyst of left foot 5204181862 416933 M67.472 rule out soft tissue lesion with ultrasound follow-up after testing Left Achil les tendinitis 4971533606 14709 M76.62 physical therapy orderedric e therapymay use topical Voltaren gel over-the-c ounterstre tching exercises reviewed with the patient and dispensedf ollow-up in 2 months [id number] Benjamin Owens DPM [facility] [place] [address] [place] [address] 03/02/2023 16:59:12 03/06/2023 12:18:52 Sprain of foot 17851082 S93.602A x-rays reviewed with the patient - negative for acute injuryRice therapyAnt i-inflamma tory medication over-the-c ounter as neededfoll ow-up as needed [id number] Benjamin Owens DPM [facility] [place] [address] [place] [address] 05/04/2023 16:32:15 05/09/2023 17:39:00 Plantar fasciitis of left foot 2342822083 9753884 M72.2 Rx physical therapy - left footstretc vitaly And icing instructio ns reviewedre commend supportive shoe gearRecomm end [employer] [place] orthoticsf ollow-up 2 months [id number] Benjamin Owens DPM [facility] [place] [address] [place] [address] 07/03/2023 09:21:52 07/03/2023 10:01:41 Plantar fasciitis of left foot 5423047464 8309024 M72.2 Rx physical therapy - left foot-- finishcont inue at-home therapyCon tinue stretching in icing exercises with supportive shoe gear with insertsfol low-up 2-3 months possible endoscopic plantar fasciotomy at that time Ankle pain 444023174 M25 .579 Bone spur of left ankle 5668286116 94645 M25.772 X-rays reviewed with the patient Pain in left foot 489307 0865 99104 M79.672 as above [id number] Chintan Cates MD [facility] [place] [address] [place] [address], [address] [place] [address] 07/31/2023 11:46:00 07/31/2023 12:50:07 Pain of left knee joint 1950476752 77275 M25.560 [id number] Benjamin Owens DPM [facility] [place] [address] [place] [address] 09/05/2023 16:18:39 09/05/2023 17:04:50 Plantar fasciitis of left foot 3690128519 4202709 M72.2 Rx physical therapy - left foot-- failed therapyobt ain surgical clearance- EKG and LABScontin ue at-home therapyCon tinue stretching in icing exercises with supportive shoe gear with insertsrev iewed treatment options with the patient, recommend EPFALL risk, benefits, and complicati ons reviewed with the patient. No guarantees given or implied. ALL questions and concerns were addressed with the patient.fo llow-up once clearance obtained [id number] Benjamin Owens DPM [facility] [place] [address] [place] [address] 09/26/2023 10:40:29 09/28/2023 14:56:26 Postoperative care 222079588 Z48.89 status post 3 days- doing wellendosc opic plantar fasciotomy left foothealin gsutures intactcont inue postop shoefollow -up 2 weeks for suture removal [id number] Benjamin Owens DPM [facility] [place] [address] [place] [address] 10/10/2023 11:22:07 10/10/2023 16:26:00 Postoperative care 162122608 Z48.89 status post 10 days- doing wellendosc opic plantar fasciotomy left foothealed - sutures removedcon tinue postop shoefollow -up as needed [id number] Chintan Cates MD [facility] [place] [address] [place] [address] 10/25/2023 15:24:18 10/25/2023 16:04:26 Pain of left knee joint 3818602011 19689 M25.562 Mass of rodriguez bcutaneous tissue of left lower leg 6791459826 4190554 R22.42 [id number] Benjamin Owens DPM [facility] Podiatry [address] [address] 11/02/2023 16:16:00 11/02/2023 17:07:38 Foot callus 565026796 L84 debrided without incidentre commend supportive shoe gearuse pumice stone daily if returnsfol low-up as needed Pain in left foot 521761 7013 41100 M79.672 secondary to above [id number] Chintan Cates MD S[facility] [address] 12/04/2023 10:25:50 12/04/2023 10:55:43 Pain of left knee joint 7971331656 87514 M25.653 [id number] Benjamin Owens DPM [facility] Pod[facility]ry [address] [address] 02/15/2024 15:49:36 02/19/2024 11:12:30 Diabetes mellitus 14048732 E11.40 continue with glucose control per PCP recommenda tioncheck feet daily for wounds infection at present seek medical attention immediatel yContinue supportive shoe gearFollow -up in six-month for diabetic foot care [id number] Chintan Cates MD [facility] [address] [place] [address] 03/20/2024 14:43:44 03/20/2024 15:21:59 Pain of right knee joint 4095852011 75954 M25.561 Pain of left forearm 779 1944013 47143 M79.927 [id number] Chintan Cates MD [facility] [address] 07/01/2024 11:30:20 07/01/2024 13:04:01 Pain of right knee joint 4646693783 99044 M25.518 [id number] Benjamin Owens DPM [facility] [place] [address] [place] [address] 07/01/2024 14:36:07 07/12/2024 08:29:29 Pain of right heel 9498464947 116415 M79.671 plantar heelsuppor tive shoe gearrice therapy Pain of le ft ankle joint 5461271597 0874301 M25.572 x-rays left ankle x3 negative for acute injury Tendinitis of foot 25680 2007 M77.52 Rx corticoste roidrice therapyno strenuous activities supportive shoe gear dailyfollo w-up 4 weeks [id number] Chintan Cates MD [facility]_[address], [address] [address] 07/29/2024 11:11:11 07/29/2024 12:13:29 Pain of right knee joint 3116818723 07412 M25.626 [id number] Benjamin Owens DPM [facility] [place] [address] [place] [address] 07/29/2024 13:57:41 07/31/2024 09:20:28 Pain of right heel 2699504680 860544 M79.671 plantar heelsuppor tive shoe gearrice therapyfol low-up 2 months, continue at home for his therapy possible repeat injection [id number] Benjamin Owens DPM [facility] [place] [address] [place] [address] 10/07/2024 13:42:52 10/09/2024 09:27:16 Pain of right heel 7507077529 529039 M79.671 plantar heel- rightPrevi ous plantar fasciotomy endoscopic supportive shoe gearrice therapyfol low-up mri of foot [id number] Chintan Cates MD [facility]_[address], [address] [address] 10/28/2024 11:00:52 10/28/2024 12:35:24 Pain of right knee joint 8032830454 25445 M25.149 [id number] Chintan Cates MD [facility] [address] 11/18/2024 11:54:47 11/18/2024 12:38:29 Pain of right knee joint 4874440641 06628 M25.561 [id number] Benjamin Owens DPM [facility] [place] [address] [place] [address] 12/26/2024 13:57:17 12/30/2024 11:44:46 Pain of right heel 5932809722 102219 M79.671 plantar heel- rightinjec tion plantar heel 12/26/24Pre vious plantar fasciotomy endoscopic supportive shoe gearrice therapyFol low-up 6 months [id number] Benjamin Owens DPM [facility] [place] [address] [place] [address] 01/23/2025 14:41:51 02/17/2025 15:06:01 Pain of toe of right foot 0457526020 72161 M79.674 [id number] recommend supportive shoe gearx-rays reviewedri ce therapyfol low-up in 3 weeks if continues to be problemati c [id number] Chintan Cates MD [facility] [address] 02/17/2025 10:18:43 02/17/2025 11:07:48 Pain of elbow region 42458518 M25.522 [id number] Chintan Cates MD [facility] [address] 04/01/2025 13:50:26 04/01/2025 14:17:00 Pain of elbow region 35015176 M25.522 [id number] [facility] [place] [address] [place] [address] 04/24/2025 14:44:26 05/13/2025 13:51:17 Acute ankle pain 6626109416 9105 M25.572 [id number] x-rays left ankle x3 negative for acute injuryrice therapycon tinue supportive shoe gearoffloa dingfollow -up 1 month Spur of ankle bone 24521 34895 6430078 M77.50 [id number] distal lateral fibula [id number] Benjamin Owens DPM [facility] Podiatry [address] [place] [address] 05/20/2025 15:30:24 05/21/2025 15:39:41 Pain of left ankle joint 9238394857 7391727 M25.572 x-rays left ankle x3 negative for acute injuryfail ed ankle injection- some relief but very short-live dfailed at-home physical therapy Osteochond ral defect of talus 150544514 M95.8 [id number] concerns for osteo chondral defect of the talusposit [place]sam[place] clicking with range of motion of the ankle Left Achil les tendinitis 5338429281 06847 M76.62 [id number] at home physical therapystr etching instructio ns dispensedr ice therapymay use topical Voltaren gel over-the-c ounterstre tching exercises reviewed with the patient and dispensedf ollow-up in 2 months [id number] Chintan Cates MD [facility] Ortho [address], [facility] [address] [place] [address] 06/02/2025 10:11:56 06/02/2025 10:30:01 Pain of elbow region 12558704 M25.522 [id number] Health Concerns Section Related Observation LastModified by Organization Detai ls LastModified Time None Recorded Concern Status LastModified by Organization Details LastModified Time None Recorded Advance Directives Directive None Recorded Payers Insurance Date Sequence Insurance Name Policy Number Policy Greenberg Covered Member ID Greenberg Member ID Guarantor Name 05/29/2025 1 [facility] (MEDICAID HMO) [id number] Nichol Guaman [id number] Nichol Guaman Notes Date Note Type Note Provider Name and Address Organization Details Recorded Time 04/24/2025 text/html . Patient is a 64-year-old female she returns to the office with complaints of pain at the distal aspect of the fibula. Patient states that she feels a little bone spur and this is the area she is having discomfort she had x-rays which were insignificant for any significant bone spur. Patient is likely having little bit of inflammatory pain secondary to recurrent ankle sprains. Patient denies any giving out of the ankle when weight-bearing. Patient denies any other complaints. Benjamin Owens DPM [address], [facility] [address], [place], [address], [employer] [facility] [employer] 05/12/2025 10:29:04 05/20/2025 text/html . Patient is a 64-year-old female she returns for continued pain of the left ankle. Patient states when she is walking she has pain on the lateral aspect. Patient states now she is having some clicking sensations while walking. Patient states the injection did help but she is continuing to have pain when walking she states her pain level today is 6/10. Patient denies any other complaints. Benjamin Owens DPM [address], [address], [place], [address], [employer] 05/20/2025 16:21:06 OBGyn Episode No OBEpisode recorded.
--- OUTSIDE RECORDS SUMMARY | 2025-07-09 13:28 | XMS_ITS | Data Portability ---
Author Organization [facility] [place] [facility] Address [address] [facility] [place] [address] Care Team Providers Care Weight Caller Name Role Phone LUCY RUELAS Coke Wheeler Unavailable RENEA FLORENTINO Primary Care Provider THUAN GOMEZ Corporate Training Manager Assessment Encounter Date Assessment Date Assessment LastModified by Organization Details LastModified Time 03/08/2024 03/08/2024 CBC CMP lipid A1 c dietary strategies discussed she needs to really get in touch with her illness insight is poor she did see Gynecology in the last few months sounds like they may be evaluating an ovarian cyst insurance will not pay for GLP 1 agents follow up with me in 4 months do not need to do anything further with the elbow and knee contusions. Allegedly up-to-date with mammogram and colon cancer screening [email or web address] Not available 03/08/2024 10:25:11 06/18/2024 06/18/2024 importance of keeping her medications on a daily basis discussed and that she is having trouble with that she is to let us know refill her medications we will obtain blood work get diabetic eye exam obtain her colonoscopy reports she will follow up with me in 4 months [email or web address] Not available 07/23/2024 23:34:23 10/16/2024 10/16/2024 we will obtain a CBC CMP lipid and A1c urinary microalbumin testing diabetic eye exam see me in 4 months regular walking take her sugars daily we will see what her cholesterol is and then we will make a decision on statin intensity [email or web address] Not available 10/19/2024 11:29:55 02/19/2025 02/19/2025 Blood work go se e specialists disordered diagnosis discussed in 3 months [email or web address] Not available 03/17/2025 20:48:39 05/21/2025 05/21/2025 CBC CMP lipid A1 c he says her blood pressure is up because of inconsistencies taking her medicine take the medicines consistently see me back in 3 months get blood pressure check in a week or 2 [email or web address] Not available 05/25/2025 19:47:28 Plan of Treatment Reminders Order Date Submit Date Provider Last Modified By Organization Details Last Modified Time Details Appointments ANY 15 2025 01:00P Irlanda Florentino MD Not available Not available Not available Lab albumin/c reatinine , mass ratio, urine 2024 025 ADRIANA Chen, [address], [place], [address], 05/22/2025 15:12:50 HbA1c (hemoglob in A1c), blood 2024 025 ADRIANA Chen, [address], [place], [address], 05/22/2025 15:12:52 CBC w/ auto diff 2024 025 ADRIANA Chen, [address], [place], [address], 05/22/2025 15:12:53 lipid panel, serum 2024 025 ADRIANA Chen, [address], [place], [address], 05/22/2025 15:12:51 CMP, serum or plasma 2024 025 ADRIANA Chen, [address], [place], [address], 05/22/2025 15:12:52 HbA1c (hemoglob in A1c), blood 2024 025 ADRIANA Chen, [address], [place], [address], 02/20/2025 08:27:21 lipid panel, serum 2024 025 ADRIANA Chen, [address], [place], [address], 02/20/2025 08:27:18 CBC w/ auto diff 2024 025 ADRIANA Chen, [address], [place], [address], 02/20/2025 08:27:23 CMP, serum or plasma 2024 025 ADRIANA Chen, [address], [place], [address], 02/20/2025 08:27:19 albumin/c reatinine , mass ratio, urine 2024 025 ADRIANA Chen, [address], [place], [address], 10/22/2024 13:25:25 HbA1c (hemoglob in A1c), blood 2024 025 ADRIANA Chen, [address], [place], [address], 10/22/2024 13:25:30 lipid panel, serum 2024 025 ADRIANA Chen, [address], [place], [address], 10/22/2024 13:25:27 CMP, serum or plasma 2024 025 ADRIANA Chen, [address], [place], [address], 10/22/2024 13:25:29 CBC w/ auto diff 2024 025 ADRIANA Chen, [address], [place], [address], 10/22/2024 13:25:32 albumin/c reatinine , mass ratio, urine 2023 024 ADRIANA Chen, [address], [place], [address], 07/06/2024 06:19:17 HbA1c (hemoglob in A1c), blood 2023 024 ADRIANA Chen, [address], [place], [address], 07/06/2024 06:19:21 CBC w/ auto diff 2023 024 ADRIANA Chen, [address], [place], [address], 07/06/2024 06:19:22 CMP, serum or plasma 2023 024 ADRIANA Chen, [address], [place], [address], 07/06/2024 06:19:20 lipid panel, serum 2023 024 ADRIANA Chen, [address], [place], [address], 07/06/2024 06:19:19 HbA1c (hemoglob in A1c), blood 2023 024 ADRIANA Chen, [address], [place], [address], 03/09/2024 06:21:07 albumin/c reatinine , mass ratio, urine 2023 024 ADRIANA Chen, [address], [place], [address], 03/09/2024 06:21:05 lipid panel, serum 2023 024 ADRIANA Chen [address], [place], [address], 03/09/2024 06:21:06 CMP, serum or plasma 2023 024 ADRIANA [facility], [address], [place], [address], 03/09/2024 06:21:06 CBC w/ auto diff 2023 024 ADRIANA [facility], [address], [place], [address], 03/09/2024 06:21:08 Referral None recorded. Procedures None recorded. Surgeries None recorded. Imaging None recorded. Medication Orders lisinopri l 40 mg tablet 2024 025 [email or web address] [facility], [address] [place] [address], [address], 02/19/2025 21:43:05 pantopraz ole 40 mg tablet,de layed release [address] [facility] [address] [facility], [address] [place] [address], [address], 02/19/2025 21:43:05 Patient TargetsNo targets recorded. Patient Instructions Encounter Date Encounter Id Patient Instructions Last Modified By Organization Details Last Modified Time 06/18/2024 [id number] A healthy lifestyle: care instructions [email or web address] Not available 06/18/2024 17:13:37 diabetic eye exam* [email or web address] Not available 10/16/2024 15:25:46 10/16/2024 [id number] A healthy lifestyle: care instructions [email or web address] Not available 10/16/2024 17:12:12 diabetic eye exam* ADRIANA Not available 01/03/2025 13:08:22 02/19/2025 [id number] A healthy lifestyle: care instructions [email or web address] Not available 02/19/2025 21:43:05 05/21/2025 [id number] A healthy lifestyle: care instructions [email or web address] Not available 05/21/2025 21:28:56 Reason for Referral None Reported. Results Created Date Observation Date Name Description Value Unit Range Abnormal Flag Note LastModifiedBy Organization Detail LastModifiedTime 03/08/2003/09/2024 ALBUM IN/CR EATIN INE RATIO ,URIN E creatinine, urine 281.2 mg/dL notest ab. Not Available [facility] [address] [place], [address], 03/09/2024 06:21:05 03/08/20 24 03/09/2024 ALBUM IN/CR EATIN INE RATIO ,URIN E albumin, urine 81.5 ug/mL notest ab. Not Available [facility] ([facility] [address] [place], [address], 03/09/2024 06:21:05 03/08/2003/09/2024 ALBUM IN/CR EATIN INE RATIO ,URIN E alb/creat ratio 29 mg/g_ creat 0-29 Arielle l: 0 - 29 Moder ately incre ased: 30 - 300 Sever candace incre ased: >300 Not Available [facility] [address] [place], [address], 03/09/2024 06:21:05 03/08/20 24 03/09/2024 LIPID PANEL cholesterol, total 242 mg/dL 100-19 9 above high normal Not Available [facility] [address] [place], [address], 03/09/2024 06:21:06 03/08/20 24 03/09/2024 LIPID PANEL triglyceride s 125 mg/dL 0-149 Not Available [facility] [address] [place], [address], 03/09/2024 06:21:06 03/08/20 24 03/09/2024 LIPID PANEL HDL cholesterol 49 mg/dL >39 Not Available [facility] [address] [facility], [address], 03/09/2024 06:21:06 03/08/20 24 03/09/2024 LIPID PANEL VLDL cholesterol pennie 23 mg/dL 5-40 Not Available [facility] [address] [facility] [place], [address], 03/09/2024 06:21:06 03/08/20 24 03/09/2024 LIPID PANEL LDL chol calc ([facility]) 170 mg/dL 0-99 above high normal Not Available [facility] [address] [facility] [place], [address], 03/09/2024 06:21:06 03/08/20 24 03/09/2024 COMP. METAB OLIC PANEL (14) glucose 225 mg/dL 70-99 above high normal Not Available [facility] [address] [place], [address], 03/09/2024 06:21:06 03/08/20 24 03/09/2024 COMP. METAB OLIC PANEL (14) BUN 17 mg/dL 8-27 Not Available [facility] [address] [place], [address], 03/09/2024 06:21:06 03/08/20 24 03/09/2024 COMP. METAB OLIC PANEL (14) creatinine 1.00 mg/dL 0.57-1 .00 Not Available [facility] ([facility] [address] [place], [address], 03/09/2024 06:21:06 03/08/20 24 03/09/2024 COMP. METAB OLIC PANEL (14) eGFR 63 mL/mi n/1.7 3 >59 Not Available [facility] ([facility] [address] [place], [address], 03/09/2024 06:21:06 03/08/20 24 03/09/2024 COMP. METAB OLIC PANEL (14) BUN/creatini ne ratio 17 12-28 Not Available [facility] [address] [facility] [place], [address], 03/09/2024 06:21:06 03/08/20 24 03/09/2024 COMP. METAB OLIC PANEL (14) sodium 140 mmol/ L 134-14 4 Not Available [facility] [address] [facility] [place], [address], 03/09/2024 06:21:06 03/08/20 24 03/09/2024 COMP. METAB OLIC PANEL (14) potassium 4.2 mmol/ L 3.5-5. 2 Not Available [facility] [address] [facility] [place], [address], 03/09/2024 06:21:06 03/08/20 24 03/09/2024 COMP. METAB OLIC PANEL (14) chloride 99 mmol/ L 96-106 Not Available [facility] [address] [facility] [place], [address], 03/09/2024 06:21:06 03/08/20 24 03/09/2024 COMP. METAB OLIC PANEL (14) carbon dioxide, total 25 mmol/ L 20-29 Not Available [facility] [address] [facility] [place], [address], 03/09/2024 06:21:06 03/08/20 24 03/09/2024 COMP. METAB OLIC PANEL (14) calcium 9.2 mg/dL 8.7-10 .3 Not Available [facility] [address] [facility] [place], [address], 03/09/2024 06:21:06 03/08/20 24 03/09/2024 COMP. METAB OLIC PANEL (14) protein, total 6.9 g/dL 6.0-8. 5 Not Available [facility] [address] [place], [address], 03/09/2024 06:21:06 03/08/20 24 03/09/2024 COMP. METAB OLIC PANEL (14) albumin 4.3 g/dL 3.9-4. 9 Not Available [facility] [address] [place], [address], 03/09/2024 06:21:06 03/08/20 24 03/09/2024 COMP. METAB OLIC PANEL (14) globulin, total 2.6 g/dL 1.5-4. 5 Not Available [facility] [address] [facility] [place], [address], 03/09/2024 06:21:06 03/08/20 24 03/09/2024 COMP. METAB OLIC PANEL (14) bilirubin, total 0.8 mg/dL 0.0-1. 2 Not Available [facility] [address] [facility] [place], [address], 03/09/2024 06:21:06 03/08/20 24 03/09/2024 COMP. METAB OLIC PANEL (14) alkaline phosphatase 105 IU/L 44-121 Not Available [facility] [address] [facility] [place], [address], 03/09/2024 06:21:06 03/08/20 24 03/09/2024 COMP. METAB OLIC PANEL (14) AST (SGOT) 18 IU/L 0-40 Not Available [facility] [address] [facility] [place], [address], 03/09/2024 06:21:06 03/08/20 24 03/09/2024 COMP. METAB OLIC PANEL (14) ALT (SGPT) 14 IU/L 0-32 Not Available [facility] [address] [facility], [place], [address], 03/09/2024 06:21:06 03/08/2003/09/2024 HEMOG LOBIN A1C hemoglobin A1C 8.8 % 4.8-5. 6 above high normal Predi abete s: 5.7 - 6.4 Diabe shannon: >6.4 Glyce katharine contr ol for adult s with diabe shannon: <7.0 Not Available [facility] [address] [facility], [place], [address], 03/09/2024 06:21:07 03/08/20 24 03/08/2024 CBC WITH DIFFE RENTI AL/PL ATELE T WBC 5.9 x10e3 /uL 3.4-10 .8 Not Available [facility] [address] [facility], [place], [address], 03/09/2024 06:21:08 03/08/20 24 03/08/2024 CBC WITH DIFFE RENTI AL/PL ATELE T RBC 4.78 x10e6 /uL 3.77-5 .28 Not Available [facility] [address] [facility], [place], [address], 03/09/2024 06:21:08 03/08/20 24 03/08/2024 CBC WITH DIFFE RENTI AL/PL ATELE T hemoglobin 14.0 g/dL 11.1-1 5.9 Not Available [facility] [address] [facility], [place], [address], 03/09/2024 06:21:08 03/08/20 24 03/08/2024 CBC WITH DIFFE RENTI AL/PL ATELE T hematocrit 44.2 % 34.0-4 6.6 Not Available [facility] [address] [facility], [place], [address], 03/09/2024 06:21:08 03/08/20 24 03/08/2024 CBC WITH DIFFE RENTI AL/PL ATELE T MCV 93 fL 79-97 Not Available [facility] [address] [facility], [place], [address], 03/09/2024 06:21:08 03/08/20 24 03/08/2024 CBC WITH DIFFE RENTI AL/PL ATELE T MCH 29.3 pg 26.6-3 3.0 Not Available [facility] [address] [facility], [place], [address], 03/09/2024 06:21:08 03/08/20 24 03/08/2024 CBC WITH DIFFE RENTI AL/PL ATELE T MCHC 31.7 g/dL 31.5-3 5.7 Not Available [facility] [address] [facility], [place], [address], 03/09/2024 06:21:08 03/08/20 24 03/08/2024 CBC WITH DIFFE RENTI AL/PL ATELE T RDW 12.4 % 11.7-1 5.4 Not Available [facility] [address] [place], [address], 03/09/2024 06:21:08 03/08/20 24 03/08/2024 CBC WITH DIFFE RENTI AL/PL ATELE T platelets 277 x10e3 /uL 150-45 0 Not Available [facility] [address] [place], [address], 03/09/2024 06:21:08 03/08/20 24 03/08/2024 CBC WITH DIFFE RENTI AL/PL ATELE T neutrophils 54 % notest ab. Not Available [facility] [address] [place], [address], 03/09/2024 06:21:08 03/08/20 24 03/08/2024 CBC WITH DIFFE RENTI AL/PL ATELE T lymphs 33 % notest ab. Not Available [facility] [address] [facility], [place], [address], 03/09/2024 06:21:08 03/08/20 24 03/08/2024 CBC WITH DIFFE RENTI AL/PL ATELE T monocytes 9 % notest ab. Not Available [facility] [address] [facility], [place], [address], 03/09/2024 06:21:08 03/08/20 24 03/08/2024 CBC WITH DIFFE RENTI AL/PL ATELE T eos 3 % notest ab. Not Available [facility] [address] [facility], [place], [address], 03/09/2024 06:21:08 03/08/20 24 03/08/2024 CBC WITH DIFFE RENTI AL/PL ATELE T basos 1 % notest ab. Not Available [facility] [address] [facility], [place], [address], 03/09/2024 06:21:08 03/08/20 24 03/08/2024 CBC WITH DIFFE RENTI AL/PL ATELE T neutrophils (absolute) 3.2 x10e3 /uL 1.4-7. 0 Not Available [facility] [address] [place], [address], 03/09/2024 06:21:08 03/08/20 24 03/08/2024 CBC WITH DIFFE RENTI AL/PL ATELE T lymphs (absolute) 1.9 x10e3 /uL 0.7-3. 1 Not Available [facility] [address] [facility], [place], [address], 03/09/2024 06:21:08 03/08/20 24 03/08/2024 CBC WITH DIFFE RENTI AL/PL ATELE T monocytes(ab solute) 0.5 x10e3 /uL 0.1-0. 9 Not Available [facility] [address] [facility] [place], [address], 03/09/2024 06:21:08 03/08/20 24 03/08/2024 CBC WITH DIFFE RENTI AL/PL ATELE T eos (absolute) 0.2 x10e3 /uL 0.0-0. 4 Not Available [facility] [address] [facility], [place], [address], 03/09/2024 06:21:08 03/08/20 24 03/08/2024 CBC WITH DIFFE RENTI AL/PL ATELE T baso (absolute) 0.1 x10e3 /uL 0.0-0. 2 Not Available [facility] [address] [facility], [place], [address], 03/09/2024 06:21:08 03/08/20 24 03/08/2024 CBC WITH DIFFE RENTI AL/PL ATELE T immature granulocytes 0 % notest ab. Not Available [facility] [address] [facility] [place], [address], 03/09/2024 06:21:08 03/08/20 24 03/08/2024 CBC WITH DIFFE RENTI AL/PL ATELE T immature grans (abs) 0.0 x10e3 /uL 0.0-0. 1 Not Available [facility] [address] [place], [address], 03/09/2024 06:21:08 07/04/20 24 07/05/2024 ALBUM IN/CR EATIN INE RATIO ,URIN E creatinine, urine 56.5 mg/dL notest ab. Not Available [facility] [address] [facility] [place], [address], 07/06/2024 06:19:17 07/04/20 24 07/05/2024 ALBUM IN/CR EATIN INE RATIO ,URIN E albumin, urine 61.9 ug/mL notest ab. Not Available [facility] [address] [place], [address], 07/06/2024 06:19:17 07/04/20 24 07/05/2024 ALBUM IN/CR EATIN INE RATIO ,URIN E alb/creat ratio 110 mg/g_ creat 0-29 above high normal Arielle l: 0 - 29 Moder ately incre ased: 30 - 300 Sever candace incre ased: >300 Not Available [facility] [address] [place], [address], 07/06/2024 06:19:17 07/04/20 24 07/06/2024 LIPID PANEL cholesterol, total 282 mg/dL 100-19 9 above high normal Not Available [facility] [address] [place], [address], 07/06/2024 06:19:19 07/04/20 24 07/06/2024 LIPID PANEL triglyceride s 145 mg/dL 0-149 Not Available [facility] [address] [place], [address], 07/06/2024 06:19:19 07/04/20 24 07/06/2024 LIPID PANEL HDL cholesterol 46 mg/dL >39 Not Available [facility] [address] [place], [address], 07/06/2024 06:19:19 07/04/20 24 07/06/2024 LIPID PANEL VLDL cholesterol pennie 27 mg/dL 5-40 Not Available [facility] [address] [place], [address], 07/06/2024 06:19:19 07/04/20 24 07/06/2024 LIPID PANEL LDL chol calc ([facility]) 209 mg/dL 0-99 above high normal Not Available [facility] [address] [facility], [place], [address], 07/06/2024 06:19:19 07/04/20 24 07/06/2024 LIPID PANEL LDL calc comment: COMMEN T Consi anna evalu ating for Famil ial Hyper heidy stero lemia (FH), if clini edwardo indic ated. Not Available [facility] ([facility] [address] [place], [address], 07/06/2024 06:19:19 07/04/20 24 07/06/2024 COMP. METAB OLIC PANEL (14) glucose 238 mg/dL 70-99 above high normal Not Available [facility] [address] [place], [address], 07/06/2024 06:19:20 07/04/20 24 07/06/2024 COMP. METAB OLIC PANEL (14) BUN 14 mg/dL 8-27 Not Available [facility] [address] [place], [address], 07/06/2024 06:19:20 07/04/20 24 07/06/2024 COMP. METAB OLIC PANEL (14) creatinine 0.99 mg/dL 0.57-1 .00 Not Available [facility] [address] [place], [address], 07/06/2024 06:19:20 07/04/20 24 07/06/2024 COMP. METAB OLIC PANEL (14) eGFR 63 mL/mi n/1.7 3 >59 Not Available [facility] [address] [place], [address], 07/06/2024 06:19:20 07/04/20 24 07/06/2024 COMP. METAB OLIC PANEL (14) BUN/creatini ne ratio 14 12-28 Not Available [facility] [address] [facility], [address], 07/06/2024 06:19:20 07/04/20 24 07/06/2024 COMP. METAB OLIC PANEL (14) sodium 140 mmol/ L 134-14 4 Not Available [facility] [address] [place], [address], 07/06/2024 06:19:20 07/04/20 24 07/06/2024 COMP. METAB OLIC PANEL (14) potassium 4.1 mmol/ L 3.5-5. 2 Not Available [facility] [address] [facility] [place], [address], 07/06/2024 06:19:20 07/04/20 24 07/06/2024 COMP. METAB OLIC PANEL (14) chloride 100 mmol/ L 96-106 Not Available [facility] [address] [facility] [place], [address], 07/06/2024 06:19:20 07/04/20 24 07/06/2024 COMP. METAB OLIC PANEL (14) carbon dioxide, total 26 mmol/ L 20-29 Not Available [facility] [address] [facility] [place], [address], 07/06/2024 06:19:20 07/04/20 24 07/06/2024 COMP. METAB OLIC PANEL (14) calcium 9.2 mg/dL 8.7-10 .3 Not Available [facility] [address] [facility] [place], [address], 07/06/2024 06:19:20 07/04/20 24 07/06/2024 COMP. METAB OLIC PANEL (14) protein, total 7.1 g/dL 6.0-8. 5 Not Available [facility] [address] [facility] [place], [address], 07/06/2024 06:19:20 07/04/20 24 07/06/2024 COMP. METAB OLIC PANEL (14) albumin 4.4 g/dL 3.9-4. 9 Not Available [facility] [address] [place], [address], 07/06/2024 06:19:20 07/04/20 24 07/06/2024 COMP. METAB OLIC PANEL (14) globulin, total 2.7 g/dL 1.5-4. 5 Not Available [facility] [address] [place], [address], 07/06/2024 06:19:20 07/04/20 24 07/06/2024 COMP. METAB OLIC PANEL (14) bilirubin, total 0.7 mg/dL 0.0-1. 2 Not Available [facility] [address] [place], [address], 07/06/2024 06:19:20 07/04/20 24 07/06/2024 COMP. METAB OLIC PANEL (14) alkaline phosphatase 105 IU/L 44-121 Not Available [facility] [address] [place], [address], 07/06/2024 06:19:20 07/04/20 24 07/06/2024 COMP. METAB OLIC PANEL (14) AST (SGOT) 19 IU/L 0-40 Not Available [facility] [address] [place], [address], 07/06/2024 06:19:20 07/04/20 24 07/06/2024 COMP. METAB OLIC PANEL (14) ALT (SGPT) 15 IU/L 0-32 Not Available [facility] [address] [place], [address], 07/06/2024 06:19:20 07/04/20 24 07/05/2024 HEMOG LOBIN A1C hemoglobin A1C 8.7 % 4.8-5. 6 above high normal Predi abete s: 5.7 - 6.4 Diabe shannon: >6.4 Glyce katharine contr ol for adult s with diabe shannon: <7.0 Not Available [facility] [address] [place], [address], 07/06/2024 06:19:21 07/04/20 24 07/05/2024 CBC WITH DIFFE RENTI AL/PL ATELE T WBC 5.8 x10e3 /uL 3.4-10 .8 Not Available [facility] [address] [place], [address], 07/06/2024 06:19:22 07/04/20 24 07/05/2024 CBC WITH DIFFE RENTI AL/PL ATELE T RBC 5.39 x10e6 /uL 3.77-5 .28 above high normal Not Available [facility] [address] [place], [address], 07/06/2024 06:19:22 07/04/20 24 07/05/2024 CBC WITH DIFFE RENTI AL/PL ATELE T hemoglobin 15.3 g/dL 11.1-1 5.9 Not Available [facility] [address] [place], [address], 07/06/2024 06:19:22 07/04/20 24 07/05/2024 CBC WITH DIFFE RENTI AL/PL ATELE T hematocrit 48.3 % 34.0-4 6.6 above high normal Not Available [facility] [address] [place], [address], 07/06/2024 06:19:22 07/04/20 24 07/05/2024 CBC WITH DIFFE RENTI AL/PL ATELE T MCV 90 fL 79-97 Not Available [facility] [address] [place], [address], 07/06/2024 06:19:22 07/04/20 24 07/05/2024 CBC WITH DIFFE RENTI AL/PL ATELE T MCH 28.4 pg 26.6-3 3.0 Not Available [facility] [address] [facility], [place], [address], 07/06/2024 06:19:22 07/04/20 24 07/05/2024 CBC WITH DIFFE RENTI AL/PL ATELE T MCHC 31.7 g/dL 31.5-3 5.7 Not Available [facility] [address] [facility], [place], [address], 07/06/2024 06:19:22 07/04/20 24 07/05/2024 CBC WITH DIFFE RENTI AL/PL ATELE T RDW 12.4 % 11.7-1 5.4 Not Available [facility] [address] [facility], [place], [address], 07/06/2024 06:19:22 07/04/20 24 07/05/2024 CBC WITH DIFFE RENTI AL/PL ATELE T platelets 270 x10e3 /uL 150-45 0 Not Available [facility] [address] [place], [address], 07/06/2024 06:19:22 07/04/20 24 07/05/2024 CBC WITH DIFFE RENTI AL/PL ATELE T neutrophils 56 % notest ab. Not Available [facility] [address] [place], [address], 07/06/2024 06:19:22 07/04/20 24 07/05/2024 CBC WITH DIFFE RENTI AL/PL ATELE T lymphs 32 % notest ab. Not Available [facility] [address] [place], [address], 07/06/2024 06:19:22 07/04/20 24 07/05/2024 CBC WITH DIFFE RENTI AL/PL ATELE T monocytes 8 % notest ab. Not Available [facility] ([facility]) [address] [facility], [place], [address], 07/06/2024 06:19:22 07/04/20 24 07/05/2024 CBC WITH DIFFE RENTI AL/PL ATELE T eos 3 % notest ab. Not Available [facility] ([facility]) [address] [place], [address], 07/06/2024 06:19:22 07/04/20 24 07/05/2024 CBC WITH DIFFE RENTI AL/PL ATELE T basos 1 % notest ab. Not Available [facility] ([facility] [address] [place], [address], 07/06/2024 06:19:22 07/04/20 24 07/05/2024 CBC WITH DIFFE RENTI AL/PL ATELE T neutrophils (absolute) 3.2 x10e3 /uL 1.4-7. 0 Not Available [facility] ([facility]) [address] [place], [address], 07/06/2024 06:19:22 07/04/20 24 07/05/2024 CBC WITH DIFFE RENTI AL/PL ATELE T lymphs (absolute) 1.9 x10e3 /uL 0.7-3. 1 Not Available [facility] ([facility] [address] [place], [address], 07/06/2024 06:19:22 07/04/20 24 07/05/2024 CBC WITH DIFFE RENTI AL/PL ATELE T monocytes(ab solute) 0.5 x10e3 /uL 0.1-0. 9 Not Available [facility] ([facility] [address] [place], [address], 07/06/2024 06:19:22 07/04/20 24 07/05/2024 CBC WITH DIFFE RENTI AL/PL ATELE T eos (absolute) 0.2 x10e3 /uL 0.0-0. 4 Not Available [facility] ([facility] [address] [place], [address], 07/06/2024 06:19:22 07/04/20 24 07/05/2024 CBC WITH DIFFE RENTI AL/PL ATELE T baso (absolute) 0.1 x10e3 /uL 0.0-0. 2 Not Available [facility] ([facility] [address] [place], [address], 07/06/2024 06:19:22 07/04/20 24 07/05/2024 CBC WITH DIFFE RENTI AL/PL ATELE T immature granulocytes 0 % notest ab. Not Available [facility] ([facility] [address] [place], [address], 07/06/2024 06:19:22 07/04/20 24 07/05/2024 CBC WITH DIFFE RENTI AL/PL ATELE T immature grans (abs) 0.0 x10e3 /uL 0.0-0. 1 Not Available [facility] ([facility] [address] [place], [address], 07/06/2024 06:19:22 10/22/19 25 10/22/2024 ALBUM IN/CR EATIN INE RATIO ,URIN E creatinine, urine 137.2 mg/dL notest ab. Not Available [facility] [address] [place], [address], 10/22/2024 13:25:25 10/22/19 25 10/22/2024 ALBUM IN/CR EATIN INE RATIO ,URIN E albumin, urine 50.7 ug/mL notest ab. Not Available [facility] ([facility] [address] [place], [address], 10/22/2024 13:25:25 10/22/19 25 10/22/2024 ALBUM IN/CR EATIN INE RATIO ,URIN E alb/creat ratio 37 mg/g_ creat 0-29 above high normal Arielle l: 0 - 29 Moder ately incre ased: 30 - 300 Sever candace incre ased: >300 Not Available [facility] [address] [place], [address], 10/22/2024 13:25:25 10/22/19 25 10/22/2024 LIPID PANEL cholesterol, total 249 mg/dL 100-19 9 above high normal Not Available [facility] [address] [place], [address], 10/22/2024 13:25:27 10/22/19 25 10/22/2024 LIPID PANEL triglyceride s 125 mg/dL 0-149 Not Available [facility] [address] [place], [address], 10/22/2024 13:25:27 10/22/19 25 10/22/2024 LIPID PANEL HDL cholesterol 51 mg/dL >39 Not Available [facility] [address] [place], [address], 10/22/2024 13:25:27 10/22/19 25 10/22/2024 LIPID PANEL VLDL cholesterol pennie 23 mg/dL 5-40 Not Available [facility] [address] [place], [address], 10/22/2024 13:25:27 10/22/19 25 10/22/2024 LIPID PANEL LDL chol calc ([facility]) 175 mg/dL 0-99 above high normal Not Available [facility] [address] [place], [address], 10/22/2024 13:25:27 10/22/19 25 10/22/2024 COMP. METAB OLIC PANEL (14) glucose 278 mg/dL 70-99 above high normal Not Available [facility] [address] [place], [address], 10/22/2024 13:25:28 10/22/19 25 10/22/2024 COMP. METAB OLIC PANEL (14) BUN 13 mg/dL 8-27 Not Available [facility] [address] [place], [address], 10/22/2024 13:25:28 10/22/19 25 10/22/2024 COMP. METAB OLIC PANEL (14) creatinine 0.88 mg/dL 0.57-1 .00 Not Available [facility] [address] [place], [address], 10/22/2024 13:25:28 10/22/19 25 10/22/2024 COMP. METAB OLIC PANEL (14) eGFR 72 mL/mi n/1.7 3 >59 Not Available [facility] [address] [place], [address], 10/22/2024 13:25:28 10/22/19 25 10/22/2024 COMP. METAB OLIC PANEL (14) BUN/creatini ne ratio 15 12-28 Not Available [facility] [address] [place], [address], 10/22/2024 13:25:28 10/22/19 25 10/22/2024 COMP. METAB OLIC PANEL (14) sodium 137 mmol/ L 134-14 4 Not Available [facility] [address] [place], [address], 10/22/2024 13:25:28 10/22/19 25 10/22/2024 COMP. METAB OLIC PANEL (14) potassium 4.6 mmol/ L 3.5-5. 2 Not Available [facility] [address] [facility] [place], [address], 10/22/2024 13:25:28 10/22/19 25 10/22/2024 COMP. METAB OLIC PANEL (14) chloride 99 mmol/ L 96-106 Not Available [facility] [address] [facility] [place], [address], 10/22/2024 13:25:28 10/22/19 25 10/22/2024 COMP. METAB OLIC PANEL (14) carbon dioxide, total 24 mmol/ L 20-29 Not Available [facility] [address] [facility] [place], [address], 10/22/2024 13:25:28 10/22/19 25 10/22/2024 COMP. METAB OLIC PANEL (14) calcium 8.9 mg/dL 8.7-10 .3 Not Available [facility] [address] [facility] [place], [address], 10/22/2024 13:25:28 10/22/19 25 10/22/2024 COMP. METAB OLIC PANEL (14) protein, total 7.1 g/dL 6.0-8. 5 Not Available [facility] [address] [facility] [place], [address], 10/22/2024 13:25:28 10/22/19 25 10/22/2024 COMP. METAB OLIC PANEL (14) albumin 4.2 g/dL 3.9-4. 9 Not Available [facility] [address] [facility] [place], [address], 10/22/2024 13:25:28 10/22/19 25 10/22/2024 COMP. METAB OLIC PANEL (14) globulin, total 2.9 g/dL 1.5-4. 5 Not Available [facility] [address] [place], [address], 10/22/2024 13:25:28 10/22/19 25 10/22/2024 COMP. METAB OLIC PANEL (14) bilirubin, total 0.7 mg/dL 0.0-1. 2 Not Available [facility] [address] [place], [address], 10/22/2024 13:25:28 10/22/19 25 10/22/2024 COMP. METAB OLIC PANEL (14) alkaline phosphatase 123 IU/L 44-121 above high normal Not Available [facility] [address] [place], [address], 10/22/2024 13:25:28 10/22/19 25 10/22/2024 COMP. METAB OLIC PANEL (14) AST (SGOT) 19 IU/L 0-40 Not Available [facility] [address] [place], [address], 10/22/2024 13:25:28 10/22/19 25 10/22/2024 COMP. METAB OLIC PANEL (14) ALT (SGPT) 19 IU/L 0-32 Not Available [facility] [address] [place], [address], 10/22/2024 13:25:28 10/22/19 25 10/22/2024 HEMOG LOBIN A1C hemoglobin A1C 11.3 % 4.8-5. 6 above high normal Predi abete s: 5.7 - 6.4 Diabe shannon: >6.4 Glyce katharine contr ol for adult s with diabe shannon: <7.0 Not Available [facility]) [address] [place], [address], 10/22/2024 13:25:30 10/22/19 25 10/22/2024 CBC WITH DIFFE RENTI AL/PL ATELE T WBC 6.3 x10e3 /uL 3.4-10 .8 Not Available [facility] [address] [facility], [place], [address], 10/22/2024 13:25:32 10/22/19 25 10/22/2024 CBC WITH DIFFE RENTI AL/PL ATELE T RBC 5.09 x10e6 /uL 3.77-5 .28 Not Available [facility] [address] [facility], [place], [address], 10/22/2024 13:25:32 10/22/19 25 10/22/2024 CBC WITH DIFFE RENTI AL/PL ATELE T hemoglobin 14.8 g/dL 11.1-1 5.9 Not Available [facility] [address] [facility], [place], [address], 10/22/2024 13:25:32 10/22/19 25 10/22/2024 CBC WITH DIFFE RENTI AL/PL ATELE T hematocrit 45.7 % 34.0-4 6.6 Not Available [facility] [address] [place], [address], 10/22/2024 13:25:32 10/22/19 25 10/22/2024 CBC WITH DIFFE RENTI AL/PL ATELE T MCV 90 fL 79-97 Not Available [facility] [address] [place], [address], 10/22/2024 13:25:32 10/22/19 25 10/22/2024 CBC WITH DIFFE RENTI AL/PL ATELE T MCH 29.1 pg 26.6-3 3.0 Not Available [facility] [address] [place], [address], 10/22/2024 13:25:32 10/22/19 25 10/22/2024 CBC WITH DIFFE RENTI AL/PL ATELE T MCHC 32.4 g/dL 31.5-3 5.7 Not Available [facility] [address] [facility], [place], [address], 10/22/2024 13:25:32 10/22/19 25 10/22/2024 CBC WITH DIFFE RENTI AL/PL ATELE T RDW 12.3 % 11.7-1 5.4 Not Available [facility] [address] [facility], [place], [address], 10/22/2024 13:25:32 10/22/19 25 10/22/2024 CBC WITH DIFFE RENTI AL/PL ATELE T platelets 271 x10e3 /uL 150-45 0 Not Available [facility] [address] [facility], [place], [address], 10/22/2024 13:25:32 10/22/19 25 10/22/2024 CBC WITH DIFFE RENTI AL/PL ATELE T neutrophils 54 % notest ab. Not Available [facility]) [address] [facility], [place], [address], 10/22/2024 13:25:32 10/22/19 25 10/22/2024 CBC WITH DIFFE RENTI AL/PL ATELE T lymphs 33 % notest ab. Not Available [facility] [address] [facility], [place], [address], 10/22/2024 13:25:32 10/22/19 25 10/22/2024 CBC WITH DIFFE RENTI AL/PL ATELE T monocytes 9 % notest ab. Not Available [facility] [address] [facility], [place], [address], 10/22/2024 13:25:32 10/22/19 25 10/22/2024 CBC WITH DIFFE RENTI AL/PL ATELE T eos 3 % notest ab. Not Available [facility]) [address] [facility], [place], [address], 10/22/2024 13:25:32 10/22/19 25 10/22/2024 CBC WITH DIFFE RENTI AL/PL ATELE T basos 1 % notest ab. Not Available [facility] [address] [facility], [place], [address], 10/22/2024 13:25:32 10/22/19 25 10/22/2024 CBC WITH DIFFE RENTI AL/PL ATELE T neutrophils (absolute) 3.4 x10e3 /uL 1.4-7. 0 Not Available [facility] [address] [facility], [place], [address], 10/22/2024 13:25:32 10/22/19 25 10/22/2024 CBC WITH DIFFE RENTI AL/PL ATELE T lymphs (absolute) 2.0 x10e3 /uL 0.7-3. 1 Not Available [facility] [address] [facility], [place], [address], 10/22/2024 13:25:32 10/22/19 25 10/22/2024 CBC WITH DIFFE RENTI AL/PL ATELE T monocytes(ab solute) 0.6 x10e3 /uL 0.1-0. 9 Not Available [facility] [address] [facility], [place], [address], 10/22/2024 13:25:32 10/22/19 25 10/22/2024 CBC WITH DIFFE RENTI AL/PL ATELE T eos (absolute) 0.2 x10e3 /uL 0.0-0. 4 Not Available [facility] [address] [facility], [place], [address], 10/22/2024 13:25:32 10/22/19 25 10/22/2024 CBC WITH DIFFE RENTI AL/PL ATELE T baso (absolute) 0.1 x10e3 /uL 0.0-0. 2 Not Available [facility] [address] [facility], [place], [address], 10/22/2024 13:25:32 10/22/19 25 10/22/2024 CBC WITH DIFFE RENTI AL/PL ATELE T immature granulocytes 0 % notest ab. Not Available [facility] [address] [facility], [place], [address], 10/22/2024 13:25:32 10/22/19 25 10/22/2024 CBC WITH DIFFE RENTI AL/PL ATELE T immature grans (abs) 0.0 x10e3 /uL 0.0-0. 1 Not Available [facility] [address] [facility], [place], [address], 10/22/2024 13:25:32 02/20/20 25 02/20/2025 LIPID PANEL cholesterol, total 238 mg/dL 100-19 9 above high normal Not Available [facility] [address] [place], [address], 02/20/2025 08:27:18 02/20/20 25 02/20/2025 LIPID PANEL triglyceride s 202 mg/dL 0-149 above high normal Not Available [facility] [address] [place], [address], 02/20/2025 08:27:18 02/20/20 25 02/20/2025 LIPID PANEL HDL cholesterol 45 mg/dL >39 Not Available [facility] [address] [place], [address], 02/20/2025 08:27:18 02/20/20 25 02/20/2025 LIPID PANEL VLDL cholesterol pennie 37 mg/dL 5-40 Not Available [facility] [address] [place], [address], 02/20/2025 08:27:18 02/20/20 25 02/20/2025 LIPID PANEL LDL chol calc ([facility]) 156 mg/dL 0-99 above high normal Not Available [facility] [address] [place], [address], 02/20/2025 08:27:18 02/20/20 25 02/20/2025 COMP. METAB OLIC PANEL (14) glucose 276 mg/dL 70-99 above high normal Not Available [facility] [address] [place], [address], 02/20/2025 08:27:19 02/20/20 25 02/20/2025 COMP. METAB OLIC PANEL (14) BUN 14 mg/dL 8-27 Not Available [facility] [address] [place], [address], 02/20/2025 08:27:19 02/20/20 25 02/20/2025 COMP. METAB OLIC PANEL (14) creatinine 1.07 mg/dL 0.57-1 .00 above high normal Not Available [facility] [address] [place], [address], 02/20/2025 08:27:19 02/20/20 25 02/20/2025 COMP. METAB OLIC PANEL (14) eGFR 57 mL/mi n/1.7 3 >59 below low normal Not Available [facility] [address] [place], [address], 02/20/2025 08:27:19 02/20/20 25 02/20/2025 COMP. METAB OLIC PANEL (14) BUN/creatini ne ratio 13 12-28 Not Available [facility] [address] [place], [address], 02/20/2025 08:27:19 02/20/20 25 02/20/2025 COMP. METAB OLIC PANEL (14) sodium 139 mmol/ L 134-14 4 Not Available [facility] [address] [facility] [place], [address], 02/20/2025 08:27:19 02/20/20 25 02/20/2025 COMP. METAB OLIC PANEL (14) potassium 3.9 mmol/ L 3.5-5. 2 Not Available [facility] [address] [facility] [place], [address], 02/20/2025 08:27:19 02/20/20 25 02/20/2025 COMP. METAB OLIC PANEL (14) chloride 99 mmol/ L 96-106 Not Available [facility] [address] [facility] [place], [address], 02/20/2025 08:27:19 02/20/20 25 02/20/2025 COMP. METAB OLIC PANEL (14) carbon dioxide, total 26 mmol/ L 20-29 Not Available [facility] [address] [facility] [place], [address], 02/20/2025 08:27:19 02/20/20 25 02/20/2025 COMP. METAB OLIC PANEL (14) calcium 8.9 mg/dL 8.7-10 .3 Not Available [facility] [address] [facility] [place], [address], 02/20/2025 08:27:19 02/20/20 25 02/20/2025 COMP. METAB OLIC PANEL (14) protein, total 6.8 g/dL 6.0-8. 5 Not Available [facility] [address] [facility] [place], [address], 02/20/2025 08:27:19 02/20/20 25 02/20/2025 COMP. METAB OLIC PANEL (14) albumin 4.2 g/dL 3.9-4. 9 Not Available [facility] [address] [facility] [place], [address], 02/20/2025 08:27:19 02/20/20 25 02/20/2025 COMP. METAB OLIC PANEL (14) globulin, total 2.6 g/dL 1.5-4. 5 Not Available [facility] [address] [facility] [place], [address], 02/20/2025 08:27:19 02/20/20 25 02/20/2025 COMP. METAB OLIC PANEL (14) bilirubin, total 0.5 mg/dL 0.0-1. 2 Not Available [facility] [address] [facility] [place], [address], 02/20/2025 08:27:19 02/20/20 25 02/20/2025 COMP. METAB OLIC PANEL (14) alkaline phosphatase 96 IU/L 44-121 Not Available [facility] [address] [facility] [place], [address], 02/20/2025 08:27:19 02/20/20 25 02/20/2025 COMP. METAB OLIC PANEL (14) AST (SGOT) 22 IU/L 0-40 Not Available [facility] [address] [facility] [place], [address], 02/20/2025 08:27:19 02/20/20 25 02/20/2025 COMP. METAB OLIC PANEL (14) ALT (SGPT) 20 IU/L 0-32 Not Available [facility] [address] [place], [address], 02/20/2025 08:27:19 02/20/20 25 02/20/2025 HEMOG LOBIN A1C hemoglobin A1C 9.5 % 4.8-5. 6 above high normal Predi abete s: 5.7 - 6.4 Diabe shannon: >6.4 Glyce katharine contr ol for adult s with diabe shannon: <7.0 Not Available [facility]) [address] [facility], [place], [address], 02/20/2025 08:27:21 02/20/20 25 02/20/2025 CBC WITH DIFFE RENTI AL/PL ATELE T WBC 6.4 x10e3 /uL 3.4-10 .8 Not Available [facility] [address] [facility], [place], [address], 02/20/2025 08:27:22 02/20/20 25 02/20/2025 CBC WITH DIFFE RENTI AL/PL ATELE T RBC 4.84 x10e6 /uL 3.77-5 .28 Not Available [facility]) [address] [facility], [place], [address], 02/20/2025 08:27:22 02/20/20 25 02/20/2025 CBC WITH DIFFE RENTI AL/PL ATELE T hemoglobin 13.8 g/dL 11.1-1 5.9 Not Available [facility] [address] [place], [address], 02/20/2025 08:27:22 02/20/20 25 02/20/2025 CBC WITH DIFFE RENTI AL/PL ATELE T hematocrit 43.6 % 34.0-4 6.6 Not Available [facility] [address] [place], [address], 02/20/2025 08:27:22 02/20/20 25 02/20/2025 CBC WITH DIFFE RENTI AL/PL ATELE T MCV 90 fL 79-97 Not Available [facility] [address] [place], [address], 02/20/2025 08:27:22 02/20/20 25 02/20/2025 CBC WITH DIFFE RENTI AL/PL ATELE T MCH 28.5 pg 26.6-3 3.0 Not Available [facility] [address] [facility], [place], [address], 02/20/2025 08:27:22 02/20/20 25 02/20/2025 CBC WITH DIFFE RENTI AL/PL ATELE T MCHC 31.7 g/dL 31.5-3 5.7 Not Available [facility]) [address] [facility], [place], [address], 02/20/2025 08:27:22 02/20/20 25 02/20/2025 CBC WITH DIFFE RENTI AL/PL ATELE T RDW 12.6 % 11.7-1 5.4 Not Available [facility] [address] [facility], [place], [address], 02/20/2025 08:27:22 02/20/20 25 02/20/2025 CBC WITH DIFFE RENTI AL/PL ATELE T platelets 281 x10e3 /uL 150-45 0 Not Available [facility]) [address] [facility], [place], [address], 02/20/2025 08:27:22 02/20/20 25 02/20/2025 CBC WITH DIFFE RENTI AL/PL ATELE T neutrophils 51 % notest ab. Not Available [facility] [address] [place], [address], 02/20/2025 08:27:22 02/20/20 25 02/20/2025 CBC WITH DIFFE RENTI AL/PL ATELE T lymphs 36 % notest ab. Not Available [facility] [address] [place], [address], 02/20/2025 08:27:22 02/20/20 25 02/20/2025 CBC WITH DIFFE RENTI AL/PL ATELE T monocytes 10 % notest ab. Not Available [facility] [address] [facility], [place], [address], 02/20/2025 08:27:22 02/20/20 25 02/20/2025 CBC WITH DIFFE RENTI AL/PL ATELE T eos 2 % notest ab. Not Available [facility]) [address] [facility], [place], [address], 02/20/2025 08:27:22 02/20/20 25 02/20/2025 CBC WITH DIFFE RENTI AL/PL ATELE T basos 1 % notest ab. Not Available [facility] [address] [facility], [place], [address], 02/20/2025 08:27:22 02/20/20 25 02/20/2025 CBC WITH DIFFE RENTI AL/PL ATELE T neutrophils (absolute) 3.2 x10e3 /uL 1.4-7. 0 Not Available [facility] [address] [facility], [place], [address], 02/20/2025 08:27:22 02/20/20 25 02/20/2025 CBC WITH DIFFE RENTI AL/PL ATELE T lymphs (absolute) 2.3 x10e3 /uL 0.7-3. 1 Not Available [facility] [address] [facility], [place], [address], 02/20/2025 08:27:22 02/20/20 25 02/20/2025 CBC WITH DIFFE RENTI AL/PL ATELE T monocytes(ab solute) 0.7 x10e3 /uL 0.1-0. 9 Not Available [facility] [address] [facility], [place], [address], 02/20/2025 08:27:22 02/20/20 25 02/20/2025 CBC WITH DIFFE RENTI AL/PL ATELE T eos (absolute) 0.1 x10e3 /uL 0.0-0. 4 Not Available [facility] [address] [facility], [place], [address], 02/20/2025 08:27:22 02/20/20 25 02/20/2025 CBC WITH DIFFE RENTI AL/PL ATELE T baso (absolute) 0.1 x10e3 /uL 0.0-0. 2 Not Available [facility] [address] [facility], [place], [address], 02/20/2025 08:27:22 02/20/20 25 02/20/2025 CBC WITH DIFFE RENTI AL/PL ATELE T immature granulocytes 0 % notest ab. Not Available [facility] [address] [facility], [place], [address], 02/20/2025 08:27:22 02/20/20 25 02/20/2025 CBC WITH DIFFE RENTI AL/PL ATELE T immature grans (abs) 0.0 x10e3 /uL 0.0-0. 1 Not Available [facility] [address] [place], [address], 02/20/2025 08:27:22 05/21/20 25 05/22/2025 ALBUM IN/CR EATIN INE RATIO ,URIN E creatinine, urine 119.3 mg/dL notest ab. Not Available [facility] [address] [place], [address], 05/22/2025 15:12:50 05/21/20 25 05/22/2025 ALBUM IN/CR EATIN INE RATIO ,URIN E albumin, urine 55.2 ug/mL notest ab. Not Available [facility] [address] [facility], [place], [address], 05/22/2025 15:12:50 05/21/20 25 05/22/2025 ALBUM IN/CR EATIN INE RATIO ,URIN E alb/creat ratio 46 mg/g_ creat 0-29 above high normal Arielle l: 0 - 29 Moder ately incre ased: 30 - 300 Sever candace incre ased: >300 Not Available [facility] [address] [place], [address], 05/22/2025 15:12:50 05/21/20 25 05/22/2025 LIPID PANEL cholesterol, total 224 mg/dL 100-19 9 above high normal Not Available [facility] [address] [place], [address], 05/22/2025 15:12:51 05/21/20 25 05/22/2025 LIPID PANEL triglyceride s 134 mg/dL 0-149 Not Available [facility] [address] [place], [address], 05/22/2025 15:12:51 05/21/20 25 05/22/2025 LIPID PANEL HDL cholesterol 48 mg/dL >39 Not Available [facility] [address] [place], [address], 05/22/2025 15:12:51 05/21/20 25 05/22/2025 LIPID PANEL VLDL cholesterol pennie 24 mg/dL 5-40 Not Available [facility] [address] [place], [address], 05/22/2025 15:12:51 05/21/20 25 05/22/2025 LIPID PANEL LDL chol calc ([facility]) 152 mg/dL 0-99 above high normal Not Available [facility] [address] [place], [address], 05/22/2025 15:12:51 05/21/20 25 05/21/2025 COMP. METAB OLIC PANEL (14) interpretati on: COMMEN T GFR estim ate at the follo wing level for >or=3 month s is class ified as follo ws: GFR WITH KIDNE Y DAMAG E WITHO UT KIDNE Y DAMAG E >or=9 0 Stage 1 Arielle l 60-89 Stage 2 Decr eased GFR 30-59 Stage 3 Stage 3 15-29 Stage 4 Stage 4 <15 (or dialy sis) Stage 5 Stage 5 Estim ated GFR will over estim ate true GFR if serum creat inine is risin g as in acute renal failu re and will under estim ate true GFR if serum creat inine is decli eduardo as in resol ving acute renal failu re. Addit ional infor christina barroso may be found at [email or web address]. Not Available [facility] ([facility]) [address] [place], [address], 05/22/2025 15:12:52 05/21/20 25 05/22/2025 COMP. METAB OLIC PANEL (14) glucose 460 mg/dL 70-99 above high normal Not Available [facility] ([facility] [address] [place], [address], 05/22/2025 15:12:52 05/21/20 25 05/22/2025 COMP. METAB OLIC PANEL (14) BUN 13 mg/dL 8-27 Not Available [facility] ([facility] [address] [place], [address], 05/22/2025 15:12:52 05/21/20 25 05/22/2025 COMP. METAB OLIC PANEL (14) creatinine 0.95 mg/dL 0.57-1 .00 Not Available [facility] ([facility] [address] [place], [address], 05/22/2025 15:12:52 05/21/20 25 05/22/2025 COMP. METAB OLIC PANEL (14) eGFR 66 mL/mi n/1.7 3 >59 Not Available [facility] ([facility]) [address] [place], [address], 05/22/2025 15:12:52 05/21/20 25 05/22/2025 COMP. METAB OLIC PANEL (14) BUN/creatini ne ratio 14 12-28 Not Available [facility] [address] [facility], [place], [address], 05/22/2025 15:12:52 05/21/20 25 05/22/2025 COMP. METAB OLIC PANEL (14) sodium 136 mmol/ L 134-14 4 Not Available [facility]) [address] [facility] [place], [address], 05/22/2025 15:12:52 05/21/20 25 05/22/2025 COMP. METAB OLIC PANEL (14) potassium 4.1 mmol/ L 3.5-5. 2 Not Available [facility]) [address] [place], [address], 05/22/2025 15:12:52 05/21/20 25 05/22/2025 COMP. METAB OLIC PANEL (14) chloride 98 mmol/ L 96-106 Not Available [facility]) [address] [place], [address], 05/22/2025 15:12:52 05/21/20 25 05/22/2025 COMP. METAB OLIC PANEL (14) carbon dioxide, total 24 mmol/ L 20-29 Not Available [facility]) [address] [place], [address], 05/22/2025 15:12:52 05/21/20 25 05/22/2025 COMP. METAB OLIC PANEL (14) calcium 9.0 mg/dL 8.7-10 .3 Not Available [facility]) [address] [place], [address], 05/22/2025 15:12:52 05/21/20 25 05/22/2025 COMP. METAB OLIC PANEL (14) protein, total 6.7 g/dL 6.0-8. 5 Not Available [facility]) [address] [facility] [place], [address], 05/22/2025 15:12:52 05/21/20 25 05/22/2025 COMP. METAB OLIC PANEL (14) albumin 4.2 g/dL 3.9-4. 9 Not Available [facility]) [address] [facility] [place], [address], 05/22/2025 15:12:52 05/21/20 25 05/22/2025 COMP. METAB OLIC PANEL (14) globulin, total 2.5 g/dL 1.5-4. 5 Not Available [facility]) [address] [facility] [place], [address], 05/22/2025 15:12:52 05/21/20 25 05/22/2025 COMP. METAB OLIC PANEL (14) bilirubin, total 0.5 mg/dL 0.0-1. 2 Not Available [facility]) [address] [facility] [place], [address], 05/22/2025 15:12:52 05/21/20 25 05/22/2025 COMP. METAB OLIC PANEL (14) alkaline phosphatase 92 IU/L 49-135 Not Available [facility]) [address] [place], [address], 05/22/2025 15:12:52 05/21/20 25 05/22/2025 COMP. METAB OLIC PANEL (14) AST (SGOT) 18 IU/L 0-40 Not Available [facility]) [address] [place], [address], 05/22/2025 15:12:52 05/21/20 25 05/22/2025 COMP. METAB OLIC PANEL (14) ALT (SGPT) 21 IU/L 0-32 Not Available [facility]) [address] [facility], [place], [address], 05/22/2025 15:12:52 05/21/20 25 05/22/2025 HEMOG LOBIN A1C hemoglobin A1C 11.4 % 4.8-5. 6 above high normal Predi abete s: 5.7 - 6.4 Diabe shannon: >6.4 Glyce katharine contr ol for adult s with diabe shannon: <7.0 Not Available [facility]) [address] [facility], [place], [address], 05/22/2025 15:12:52 05/21/20 25 05/22/2025 CBC WITH DIFFE RENTI AL/PL ATELE T WBC 6.7 x10e3 /uL 3.4-10 .8 Not Available [facility]) [address] [place], [address], 05/22/2025 15:12:53 05/21/20 25 05/22/2025 CBC WITH DIFFE RENTI AL/PL ATELE T RBC 4.85 x10e6 /uL 3.77-5 .28 Not Available [facility]) [address] [facility], [place], [address], 05/22/2025 15:12:53 05/21/20 25 05/22/2025 CBC WITH DIFFE RENTI AL/PL ATELE T hemoglobin 14.1 g/dL 11.1-1 5.9 Not Available [facility]) [address] [place], [address], 05/22/2025 15:12:53 05/21/20 25 05/22/2025 CBC WITH DIFFE RENTI AL/PL ATELE T hematocrit 44.2 % 34.0-4 6.6 Not Available [facility]) [address] [place], [address], 05/22/2025 15:12:53 05/21/20 25 05/22/2025 CBC WITH DIFFE RENTI AL/PL ATELE T MCV 91 fL 79-97 Not Available [facility]) [address] [facility], [place], [address], 05/22/2025 15:12:53 05/21/20 25 05/22/2025 CBC WITH DIFFE RENTI AL/PL ATELE T MCH 29.1 pg 26.6-3 3.0 Not Available [facility]) [address] [facility], [place], [address], 05/22/2025 15:12:53 05/21/20 25 05/22/2025 CBC WITH DIFFE RENTI AL/PL ATELE T MCHC 31.9 g/dL 31.5-3 5.7 Not Available [facility]) [address] [place], [address], 05/22/2025 15:12:53 05/21/20 25 05/22/2025 CBC WITH DIFFE RENTI AL/PL ATELE T RDW 12.0 % 11.7-1 5.4 Not Available [facility]) [address] [place], [address], 05/22/2025 15:12:53 05/21/20 25 05/22/2025 CBC WITH DIFFE RENTI AL/PL ATELE T platelets 263 x10e3 /uL 150-45 0 Not Available [facility]) [address] [facility], [place], [address], 05/22/2025 15:12:53 05/21/20 25 05/22/2025 CBC WITH DIFFE RENTI AL/PL ATELE T neutrophils 52 % notest ab. Not Available [facility]) [address] [place], [address], 05/22/2025 15:12:53 05/21/20 25 05/22/2025 CBC WITH DIFFE RENTI AL/PL ATELE T lymphs 36 % notest ab. Not Available [facility]) [address] [facility], [place], [address], 05/22/2025 15:12:53 05/21/20 25 05/22/2025 CBC WITH DIFFE RENTI AL/PL ATELE T monocytes 9 % notest ab. Not Available [facility]) [address] [facility], [place], [address], 05/22/2025 15:12:53 05/21/20 25 05/22/2025 CBC WITH DIFFE RENTI AL/PL ATELE T eos 2 % notest ab. Not Available [facility]) [address] [facility], [place], [address], 05/22/2025 15:12:53 05/21/20 25 05/22/2025 CBC WITH DIFFE RENTI AL/PL ATELE T basos 1 % notest ab. Not Available [facility]) [address] [facility], [place], [address], 05/22/2025 15:12:53 05/21/20 25 05/22/2025 CBC WITH DIFFE RENTI AL/PL ATELE T neutrophils (absolute) 3.5 x10e3 /uL 1.4-7. 0 Not Available [facility]) [address] [facility], [place], [address], 05/22/2025 15:12:53 05/21/20 25 05/22/2025 CBC WITH DIFFE RENTI AL/PL ATELE T lymphs (absolute) 2.4 x10e3 /uL 0.7-3. 1 Not Available [facility] [address] [facility], [place], [address], 05/22/2025 15:12:53 05/21/20 25 05/22/2025 CBC WITH DIFFE RENTI AL/PL ATELE T monocytes(ab solute) 0.6 x10e3 /uL 0.1-0. 9 Not Available [facility]) [address] [facility], [place], [address], 05/22/2025 15:12:53 05/21/20 25 05/22/2025 CBC WITH DIFFE RENTI AL/PL ATELE T eos (absolute) 0.1 x10e3 /uL 0.0-0. 4 Not Available [facility] [address] [facility], [place], [address], 05/22/2025 15:12:53 05/21/20 25 05/22/2025 CBC WITH DIFFE RENTI AL/PL ATELE T baso (absolute) 0.1 x10e3 /uL 0.0-0. 2 Not Available [facility]) [address] [facility], [place], [address], 05/22/2025 15:12:53 05/21/20 25 05/22/2025 CBC WITH DIFFE RENTI AL/PL ATELE T immature granulocytes 0 % notest ab. Not Available [facility]) [address] [facility], [place], [address], 05/22/2025 15:12:53 05/21/20 25 05/22/2025 CBC WITH DIFFE RENTI AL/PL ATELE T immature grans (abs) 0.0 x10e3 /uL 0.0-0. 1 Not Available [facility]) [address] [facility], [place], [address], 05/22/2025 15:12:53 03/04/20 24 03/04/2024 XR, forea rm, 2 view No observ ation record ed. [facility] [address] [facility], [place], [address], 03/07/2024 10:53:38 03/04/20 24 03/04/2024 XR, elbow , 3 or more view No observ ation record ed. [email or web address] [facility] [address] [place], [address], 03/11/2024 12:49:25 07/05/20 24 07/04/2024 MRI, knee, w/o contr ast No observ ation record ed. [email or web address] [facility] [address] [place], [address], 07/12/2024 23:32:06 10/12/19 25 10/11/2024 XR, foot, 3 or more view No observ ation record ed. [facility] [address] [place], [address], 10/14/2024 10:59:32 10/22/19 25 10/21/2024 MRI, foot, w/o contr ast No observ ation record ed. [facility] [address] [place], [address], 10/22/2024 09:10:42 05/21/20 25 05/21/2025 elect romyo gram + nerve condu ction study No observ ation record ed. [address], [place], [address], 06/02/2025 12:29:48 Result Notes None recorded. Problems Name Problem SNOMED Code Status Onset Date Resolution Date Notes Provider Name and Address Organization Details Recorded Time Carpal tunnel syndrome 23274240 Active Not Available [facility] 3 08:24:26 Glucose level outside reference range 442819212 Active Not Available [facility] 3 08:24:25 Essential hypertension 43265190 Active Not Available [facility] 3 08:24:26 Hyperlipidemi a 33463349 Active Not Available [facility] 3 08:24:26 Gastroesophag eal reflux disease 081688249 Active Not Available [facility] 3 08:24:25 Acute bronchitis 79489044 Active Not Available [facility] 3 08:24:25 Osteoarthriti s of knee 114520152 Active Not Available [facility] 3 08:24:26 Mammography abnormal 587904854 Active Not Available [facility] 3 08:24:25 Candidiasis of skin 34651461 Active Not Available [facility] 3 08:24:26 Contusion of multiple sites 313819235 Active Not Available [facility] 3 08:24:25 Type 2 diabetes mellitus 39480640 Active 2018 Not Available [facility] 3 08:24:26 Problem Notes None recorded. Procedures Surgical History Date Name Laterality Status Provider Name and Address Organization Details Recorded Time 12/20/19 24 Date of Last Mammogram completed Jenn Blanca MA [facility] 01/29/2024 12:23:56 11/16/19 23 Date of Last Pap Smear completed Jenn Blanca MA [facility] 11/15/2022 15:03:41 10/19/19 18 Elbow arthroscopy/susan jeanie completed Dory Vicente MA [facility] 10/24/2017 15:28:22 07/17/19 07 Endometrial Ablation completed Dory Vicente MA [facility] 10/24/2017 15:20:20 10/09/18 94 Caesarean Section completed Dory Vicente MA [facility] 10/24/2017 15:21:08 04/01/19 92 Caesarean Section completed Dory Vicente MA [facility] 10/24/2017 15:20:58 Dilation and Curettage completed Harshil Reyes [facility] 06/25/2014 15:53:55 Other completed Harshil Reyes [facility] 06/25/2014 15:53:55 procedure on foot completed Shira Barnhart [place] [facility] 11/21/2023 14:11:27 Imaging Results None recorded. Procedure Notes None recorded. Medical Equipment None Reported. Allergies Allergen ID Allergen Name Allergen Category Reaction Reaction Severity Criticality Documentation Date Start Date Code Code System Note Provider Name and Address Organization Details Recorded Time 115568 latex environme nt,medica tion itching rash Not available Not available Not available 10/24/2017 13385 91 RxNorm Dory Vicente MA null, [place] - [facility] 8 15:17:27 [id number] Claritin medicatio n dizziness headache moderate moderate Not available 10/24/201793098 6 RxNorm Dory MERRY Vicente null, [place] - [facility] 15:17:47 [id number] Clarinex medicatio n dizziness Not available Not available 05/14/2025 55250 2 RxNorm Not Available adriana - External Data Service - prod 5 15:26:50 [id number] deslorata dine medicatio n Not available Not available Not available 05/21/2025 51278 5 RxNorm unrec ogniz ed react ion (text : Adver se react ion to subst ance, code: 78217 [id number]) , sever e (from exter nal sourc e) Rosa Piña MA null, [place] - [facility] 5 14:14:30 364834 loratadin e medicatio n dizziness headache Not available Not available [facility] 05/29/20252018 53314 RxNorm Not Available formerly [facility], 1928–1983 External Data Service - prod 5 15:39:19 [id number] naproxen medicatio n Not available Not available [facility] 05/29/20252015 7258 RxNorm unrec ogniz ed react ion (text : Skin React ions, code: 59380 [id number]) (from exter nal sour e) Not Available adriana - External Data Service - prod 5 15:39:19 7696 Aleve medicatio n Not available Not available Not available 06/25/201445835 1 RxNorm Up set stoma ch Dai Benz MA null, [place] - [facility] 7 15:32:35 7697 Product containin g penicilli n (product) medicatio n facial swelling moderate Not available 06/25/2014 40312 8001 SNOMED Negrita Reyes null, [place] - [facility] 4 15:53:55 7698 Cipro medicatio n Not available Not available Not available 06/25/201448674 3 RxNorm Dai Benz MA null, [place] - [facility] 7 15:33:22 Medications Name Sig Start Date Stop Date Status Note LastModified by Organization Details LastModified Time multivitam in tablet Take 1 tablet every day by oral route. 2017 active Not Available Not Available Not Avai lable losartan 50 mg tablet Take 1 tablet every day by oral route. 02/12 completed Not Available Not Available Not Available amoxicilli n 500 mg capsule TAKE 1 CAPSULE BY MOUTH EVERY 8 HOURS FOR 5 DAYS 04/29 completed Not Available Not Available Not Available pioglitazo ne 15 mg tablet TAKE 1 TABLET BY MOUTH ONCE DAILY AFTER A MEAL active Not Available Not Available No t Available atorvastat in 40 mg tablet Take 1 tablet every day by oral route at dinner for 30 days. 11/20 completed Not Available Not Available Not Available bupropion HCl SR 150 mg tablet,12 hr sustained- release TAKE 1 TABLET BY MOUTH ONCE DAILY WITH MEALS FOR 30 DAYS 08/26 completed Not Available Not Available Not Available neomycin-p olymyxin-h ydrocort 3.5 mg/mL-10,0 00 unit/mL-1 % ear solution 10/31 completed Not Available Not Available Not Available atorvastat in 80 mg tablet TAKE 1 TABLET BY MOUTH ONCE DAILY AT BEDTIME active Not Available Not Available No t Available nystatin 100,000 unit/mL oral suspension TAKE 4 ML BY MOUTH 3 TIMES DAILY FOR 10 DAYS,SWI SH,GARGL E AND SWALLOW 11/20 completed Not Available Not Available Not Available gabapentin 600 mg tablet Take 1 tablet 3 times a day by oral route for 30 days. 10/31 completed Not Available Not Available Not Available doxycyclin e hyclate 100 mg capsule TAKE 1 CAPSULE BY MOUTH ONCE DAILY 02/09 completed Not Available Not Available Not Available cefuroxime axetil 250 mg tablet 01/24 completed Not Available Not Available Not Available atorvastat in 20 mg tablet Take 1 tablet every day by oral route at bedtime for 30 days. 03/04 completed Not Available Not Available Not Available clindamyci n HCl 300 mg capsule TAKE 1 CAPSULE BY MOUTH EVERY 8 HOURS 10/23 completed Not Available Not Available Not Available atorvastat in 10 mg tablet Take 1 tablet every day by oral route in the evening for 30 days. 06/21 completed Not Available Not Available Not Available Tab-A-Yoanna tablet 11/27 completed Not Available Not Available Not Available azithromyc in 250 mg tablet TAKE 2 TABLETS BY MOUTH ON DAY 1, AND THEN TAKE 1 TABLET BY MOUTH ONCE A DAY ON DAY 2 THROUGH DAY 5 01/28 completed Not Available Not Available Not Available fluconazol e 150 mg tablet TAKE ONE TABLET BY MOUTH A ONE-TIME DOSE 08/16 completed Not Available Not Available Not Available hydrocodon e 5 mg-acetami nophen 325 mg tablet TAKE 1 TABLET BY MOUTH EVERY 6 HOURS NEEDED FOR PAIN MODERATE (4-6 ON SCALE) 11/20 completed Not Available Not Available Not Available meloxicam 15 mg tablet TAKE 1 TABLET BY MOUTH ONCE DAILY active Not Available Not Available No t Available naltrexone 50 mg tablet Take 1 tablet every day by oral route with meals for 30 days. 08/26 completed Not Available Not Available Not Available metronidaz ole 0.75 % (37.5 mg/5 gram) vaginal gel Insert 1 applicat orful every day by vaginal route. 08/26 completed Not Available Not Available Not Available lisinopril 20 mg tablet Take 1 tablet every day by oral route in the evening for 30 days. 06/21 completed Not Available Not Available Not Available prednisone 20 mg tablet 04/01 completed Not Available Not Available Not Available metoprolol succinate ER 100 mg tablet,ext ended release 24 hr TAKE 1 TABLET BY MOUTH ONCE DAILY DIRECTED FOR 90 DAYS 10/23 completed Not Available Not Available Not Available gabapentin 400 mg capsule Take 1 capsule 3 times a day by oral route for 30 days. 10/31 completed Not Available Not Available Not Available metformin 850 mg tablet Take 1 tablet twice a day by oral route as directed for 30 days. 10/24 completed Not Available Not Available Not Available Lantus U-100 Insulin 100 unit/mL subcutaneo us solution Inject 15 units every day by subcutan eous route at dinner for 30 days. 07/24 completed Not Available Not Available Not Available pioglitazo ne 45 mg tablet TAKE 1 TABLET BY MOUTH ONCE DAILY DIRECTED FOR 30 DAYS 04/01 completed Not Available Not Available Not Available acetaminop hen 300 mg-codeine 30 mg tablet 08/07 completed Not Available Not Available Not Available amlodipine 5 mg tablet Take 1 tablet every day by oral route at noon for 30 days. 01/10 completed Not Available Not Available Not Available sulfametho xazole 800 mg-trimeth oprim 160 mg tablet TAKE 1 TABLET BY MOUTH TWICE DAILY BEFORE MEAL(S) 08/26 completed Not Available Not Available Not Available peg-electr olyte solution 420 gram oral solution TAKE DIRECTED BY OFFICE 03/04 completed Not Available Not Available Not Available omeprazole 40 mg capsule,de layed release Take 1 capsule every day by oral route before meals for 90 days. 10/23 completed Not Available Not Available Not Available aspirin 81 mg tablet,del ayed release Take 1 tablet every day by oral route after meals for 90 days. 04/11 completed Not Available Not Available Not Available tramadol 50 mg tablet TAKE 1 TABLET BY MOUTH EVERY 8 HOURS NEEDED 03/04 completed Not Available Not Available Not Available triamcinol one acetonide 0.1 % topical cream APPLY A THIN LAYER TO THE AFFECTED AREA(S) BY TOPICAL ROUTE 2 TIMES PER DAY 04/01 completed Not Available Not Available Not Available quinapril 40 mg tablet TAKE ONE TABLET BY MOUTH ONCE DAILY FOR 30 DAYS 09/06 completed Not Available Not Available Not Available glimepirid e 2 mg tablet TAKE 1 TABLET BY MOUTH ONCE DAILY WITH MEALS FOR 30 DAYS 04/01 completed Not Available Not Available Not Available glimepirid e 1 mg tablet TAKE 1 TABLET BY MOUTH ONCE DAILY IN THE MORNING FOR 30 DAYS active Not Available Not Available No t Available amoxicilli n 400 mg-potassi um clavulanat e 57 mg/5 mL oral suspension 06/21 completed Not Available Not Available Not Available meloxicam 7.5 mg tablet TAKE 1 TABLET BY MOUTH ONCE DAILY NEEDED 12/02 completed Not Available Not Available Not Available oxycodone- acetaminop hen 5 mg-325 mg tablet TAKE 1 TABLET BY MOUTH EVERY 4 HOURS NEEDED FOR PAIN 10/23 completed Not Available Not Available Not Available amoxicilli n 875 mg tablet TAKE 1 TABLET BY MOUTH EVERY 12 HOURS active Not Available Not Available No t Available famotidine 20 mg tablet TAKE 1 TABLET BY MOUTH TWICE DAILY DIRECTED 11/20 completed Not Available Not Available Not Available phenazopyr idine 100 mg tablet TAKE 2 TABLETS BY MOUTH THREE TIMES DAILY FOR 2 DAYS 03/08 completed end of course Not Available Not Available Not Available baclofen 10 mg tablet 1 tab po 4x daily prn for 20 days 12/01 completed Not Available Not Available Not Available amlodipine 10 mg tablet TAKE 1 TABLET BY MOUTH ONCE DAILY active Not Available Not Available No t Available benzonatat e 100 mg capsule TAKE 1 CAPSULE BY MOUTH THREE TIMES DAILY NEEDED FOR 10 DAYS 11/20 completed Not Available Not Available Not Available doxycyclin e monohydrat e 100 mg capsule 08/07 completed Not Available Not Available Not Available hydrocodon e 7.5 mg-acetami nophen 325 mg tablet 11/27 completed Not Available Not Available Not Available cephalexin 500 mg capsule Take 1 capsule 3 times a day by oral route for 7 days. 06/16 completed Not Available Not Available Not Available pantoprazo le 40 mg tablet,del ayed release Take 1 tablet by mouth twice daily 2024 active Not Available Not Available Not Avai lable metformin 1,000 mg tablet Take 1 tablet twice a day by oral route as directed for 30 days. 07/24 completed Not Available Not Available Not Available triamcinol one acetonide 0.1 % topical ointment 04/01 completed Not Available Not Available Not Available nystatin 100,000 unit/gram topical cream APPLY CREAM TOPICALL Y TO AFFECTED AREA TWICE DAILY 11/20 completed Not Available Not Available Not Available ranitidine 150 mg tablet TAKE 1 TABLET BY MOUTH TWICE DAILY BEFORE MEAL(S) 08/07 completed Not Available Not Available Not Available misoprosto l 200 mcg tablet 11/27 completed Not Available Not Available Not Available promethazi ne 25 mg tablet TAKE 1/2 (ONE-EDUARDO F) TABLET BY MOUTH EVERY 6 HOURS NEEDED 02/09 completed Not Available Not Available Not Available hydrochlor othiazide 12.5 mg capsule Take 1 capsule every day by oral route. 10/23 completed Not Available Not Available Not Available diclofenac potassium 50 mg tablet 04/11 completed Not Available Not Available Not Available Xenical 120 mg capsule 12/02 completed Not Available Not Available Not Available docusate sodium 100 mg capsule TAKE 1 CAPSULE BY MOUTH ONCE DAILY NEEDED FOR CONSTIPA TION 04/01 completed Not Available Not Available Not Available gabapentin 300 mg capsule TAKE 1 CAPSULE BY MOUTH THREE TIMES DAILY DIRECTED 10/23 completed Not Available Not Available Not Available omeprazole 20 mg capsule,de layed release TAKE 1 CAPSULE ONCE DAILY BY MOUTH, 30 MINUTES BEFORE A MEAL. 10/23 completed Not Available Not Available Not Available diclofenac sodium 75 mg tablet,del ayed release TAKE 1 TABLET BY MOUTH TWICE DAILY active Not Available Not Available No t Available hydroxyzin e HCl 25 mg tablet 09/06 completed Not Available Not Available Not Available quinapril 20 mg tablet 06/21 completed Not Available Not Available Not Available pravastati n 20 mg tablet TAKE 1 TABLET BY MOUTH ONCE DAILY FOR 90 DAYS 10/23 completed Not Available Not Available Not Available mupirocin 2 % topical ointment APPLY OINTMENT TOPICALL Y TWICE DAILY 08/26 completed Not Available Not Available Not Available gabapentin 100 mg capsule 10/31 completed Not Available Not Available Not Available ergocalcif rachel (vitamin D2) 1,250 mcg (50,000 unit) capsule 09/06 completed Not Available Not Available Not Available lorazepam 1 mg tablet 03/08 completed Not Available Not Available Not Available azelastine 137 mcg (0.1 %) nasal spray USE 1 SPRAY(S) IN EACH NOSTRIL EVERY 12 HOURS 12/02 completed Not Available Not Available Not Available ibuprofen 600 mg tablet 12/01 completed Not Available Not Available Not Available cefuroxime axetil 500 mg tablet 11/27 completed Not Available Not Available Not Available levofloxac in 500 mg tablet 09/06 completed Not Available Not Available Not Available methylpred nisolone 4 mg tablets in a dose pack TAKE BY MOUTH DIRECTED ON INSIDE OF PACKAGE active Not Available Not Available No t Available albuterol sulfate HFA 90 mcg/actuat ion aerosol inhaler INHALE 2 PUFFS BY MOUTH EVERY 4 HOURS NEEDED FOR 10 DAYS 05/21 completed Not Available Not Available Not Available losartan 50 mg-hydroch lorothiazi de 12.5 mg tablet Take 1 tablet every day by oral route as directed for 30 days. 02/12 completed Not Available Not Available Not Available lisinopril 40 mg tablet TAKE 1 TABLET BY MOUTH ONCE DAILY active Not Available Not Available No t Available fluticason e propionate 50 mcg/actuat ion nasal spray,susp ension USE 1 SPRAY(S) IN EACH NOSTRIL ONCE DAILY NEEDED 05/21 completed Not Available Not Available Not Available doxycyclin e hyclate 100 mg tablet 10/23 completed Not Available Not Available Not Available Microlet Lancet USE TO CHECK GLUCOSE TWICE DAILY active Not Available Not Available No t Available amoxicilli n 875 mg-potassi um clavulanat e 125 mg tablet 08/07 completed Not Available Not Available Not Available ezetimibe 10 mg tablet TAKE 1 TABLET BY MOUTH ONCE DAILY active Not Available Not Available No t Available Premarin 0.625 mg/gram vaginal cream INSERT 1 GRAM VAGINALL Y TWICE PER WEEK 01/10 completed Not Available Not Available Not Available Benicar HCT 20 mg-12.5 mg tablet TAKE 1 TABLET BY MOUTH ONCE DAILY FOR 90 DAYS 10/23 completed Not Available Not Available Not Available rosuvastat in 5 mg tablet TAKE 1 TABLET BY MOUTH ONCE DAILY AT BEDTIME 11/20 completed Not Available Not Available Not Available Alcohol Prep Pads APPLY 1 PAD EVERY DAY BY TOPICAL ROUTE DIRECTED FOR 30 DAYS 05/21 completed Not Available Not Available Not Available nitrofuran toin monohydrat e/macrocry stals 100 mg capsule TAKE 1 CAPSULE BY MOUTH TWICE DAILY FOR 5 DAYS 03/08 completed end of course Not Available Not Available Not Available Antifungal (clotrimaz ole) 1 % topical cream APPLY TO THE AFFECTED AND SURROUND ING AREAS OF SKIN BY TOPICAL ROUTE 2 TIMES PER DAY IN THE MORNING AND EVENING 09/06 completed Not Available Not Available Not Available Januvia 50 mg tablet TAKE 1 TABLET BY MOUTH ONCE DAILY 12/01 completed Not Available Not Available Not Available Calcium with Vitamin D 600 mg-10 mcg (400 unit) tablet Take 1 tablet twice a day by oral route. 11/27 completed Not Available Not Available Not Available Tradjenta 5 mg tablet 11/27 completed Not Available Not Available Not Available Advocate Syringes 0.5 mL 31 gauge x 5/16 07/24 completed Not Available Not Available Not Available lancets 30 gauge 07/24 completed Not Available Not Available Not Available Contrave 8 mg-90 mg tablet,ext ended release TAKE TWO TABLETS BY MOUTH TWICE DAILY 01/10 completed Not Available Not Available Not Available [...] mass index (BMI) Body weight Heart rate Oxygen saturation Systolic And Diastolic Provider Name and Address Organization Details Last Updated DateTime 5 160.02 cm 39.7 kg/m2 046359. 05 g 69 /min 97 % 124/68 mm[Hg] Shira Barnhart MA [facility] 5 14:14:58 Date Recorded Body height Body mass index (BMI) Body weight Heart rate Oxygen saturation Systolic And Diastolic Provider Name and Address Organization Details Last Updated DateTime 5 160.02 cm 40.1 kg/m2 224622. 31 g 80 /min 98 % 122/64 mm[Hg] Shira Barnhart MA [facility] 5 14:31:36 Date Recorded Body height Body mass index (BMI) Body weight Heart rate Oxygen saturation Systolic And Diastolic Provider Name and Address Organization Details Last Updated DateTime 4 160.02 cm 39.2 kg/m2 739957. 99 g 66 /min 98 % 122/68 mm[Hg] Shira Barnhart MA [facility] 4 09:34:19 Date Recorded Body height Body mass index (BMI) Body weight Heart rate Oxygen saturation Systolic And Diastolic Systolic And Diastolic Provider Name and Address Organization Details Last Updated DateTime 5 160.02 cm 39.1 kg/m2 563686. 2 g 81 /min 96 % 182/102 mm[Hg] 158/80 mm[Hg] Rosa Piña MA [facility] 5 14:48:51 Date Recorded Body height Body mass index (BMI) Body weight Heart rate Oxygen saturation Systolic And Diastolic Provider Name and Address Organization Details Last Updated DateTime 4 160.02 cm 39.7 kg/m2 848568. 69 g 66 /min 98 % 160/80 mm[Hg] Rosa Piña MA [facility] 4 14:42:23 Social History Question Answer Notes LastModified by Organizat ion Details LastModified Time Tobacco Smoking Status Never Smoker Harshil wilkes, [place] - [facility] 06/25/2014 15:53:55 Do You Have An Advance Directive? No Information not available 09/01/2014 Are You Blind Or Do You Have Difficulty Seeing? No Information not available 08/16/2023 Is Blood Transfusion Acceptable In An Emergency? Yes Information not available 09/01/2014 What Is Your Level Of Caffeine Consumption? Moderate Information not available 06/25/2014 How Much Tobacco Do You Chew? None Information not available 09/06/2016 In The 14 Days Before Symptom Onset, Have You Had Close Contact With A Laboratory-confir med COVID-19 While That Case Was Ill? No Information not available 11/21/2023 In The 14 Days Before Symptom Onset, Have You Had Close Contact With A Person Who Is Under Investigation For COVID-19 While That Person Was Ill? No Information not available 11/21/2023 Have You Been To An Area Known To Be High Risk For COVID-19? No Information not available 11/21/2023 Are You Deaf Or Do You Have Serious Difficulty Hearing? No Information not available 08/16/2023 What Type Of Diet Are You Following? REGULAR Information not available 09/01/2014 Education 12 Information no t available 09/01/2014 What Is The Highest Grade Or Level Of School You Have Completed Or The Highest Degree You Have Received? [id number] Information not available 08/16/2023 Live Alone Or With Others? With Others Information not available 09/01/2014 What Was The Date Of Your Most Recent Tobacco Screening? 05/21/2025 [email or web address] Information not available 05/21/2025 How Many Children Do You Have? 9+ 11 [email or web address] Information not available 10/24/2017 Performs Monthly Self-breast Exam? Yes Information no t available 09/01/2014 Do You Use Protection During Sex? No Information not available 09/01/2014 What Is Your Relationship Status? Information not available 09/01/2014 Do You Use Your Seat Belt Or Car Seat Routinely? Yes Information not available 08/16/2023 Seat Belts Used Routinely Yes Information not available 09/01/2014 Are You Sexually Active? No Information not available 09/01/2014 Do You Have Smoke And Carbon Monoxide Detectors In Your Home? Yes Information not available 11/15/2022 Are You Passively Exposed To Smoke? Yes Brother Information no t available 11/15/2022 How Much Tobacco Do You Smoke? No [email or web address] Information not available 10/24/2017 General Stress Level Medium Information not available 09/01/2014 Do You Use Sunscreen Routinely? No Information not available 09/01/2014 Has Tobacco Cessation Counseling Been Provided? Yes Information not available 11/15/2022 On What Date Was Tobacco Cessation Counseling Provided? 10/16/2024 Information not available 10/16/2024 How Many Years Have You Smoked Tobacco? 0 [email or web address] Information not available 10/24/2017 Sex: Female Functional Status Question Answer Note LastModified by Organizat ion Details LastModified Time Do you use any illicit or recreational drugs? No Information not available 11/15/2022 Do you or have you ever used any other forms of tobacco or nicotine? No [email or web address] Information not available 04/01/2021 What is your level of alcohol consumption? None Information not available 06/25/2014 Do you or have you ever used smokeless tobacco? Never used smokeless tobacco Information not available 04/01/2020 Are you currently employed? No Information not available 09/01/2014 Are you able to care for yourself independently? Yes Information not available 08/16/2023 What is your occupation? none Information not available 09/01/2014 Do you or have you ever used e-cigarettes or vape? Never used electronic cigarettes Information not available 04/01/2020 What is your exercise level? Occasional Information not available 09/01/2014 Mental Status Question Answer Note LastModified by Organization D etails LastModified Time Do you feel stressed (tense, restless, nervous, or anxious, or unable to sleep at night)? [id number] Information not available 08/16/2023 Family History Relationship Description Onset Age of this Age Resolved Age Notes LastModified by Organization Details LastModified Time Mother Hypercholest [email or web address] [email or web address] Not available 09/01 16:18:48 Mother Malignant neoplasm of ovary rina Not available 09/01 16:18:48 Medical History Condition Response Other N High Blood Pressure Y Breast Cancer N Thyroid Problems N Kidney or Bladder Problems N GI Problems N Depression N Blood Clots N Lung Disease N Acne N Have you had a mammogram in the last yea r? Y Breast Problem N Eating Disorder N Anemia N Anesthesia Complications N Headaches/Migraines N Anxiety Disorder N Diabetes N Ovarian Cancer N Muscle, Joint, or Bone Problems Y Blood Transfusions N Seizures/Epilepsy N Polyps N Infertility N Acid Reflux (GERD) N Cancer N Abuse/Domestic Violence N Asthma N Allergies Y Endometriosis N High Cholesterol Y Hepatitis N Liver Disease N Heart Disease N Pre-Eclampsia N Hypertension Y Osteoporosis N Gynecological History Statement/Question Response Date of Last Mammogram 12/20/2023 On BCP's at Conception? N STIs/STDs N HPV Vaccine N Age at Menarche 12 Current Control Method Ablation Age at First Child 21 Sexually Active? N Menses Monthly N Date of Last Pap Smear 11/15/2022 Sexual Problems? N LMP Obstetrics History GPAL:G 14 P 4 8 2 11 Type Value Multiple Births 0 Full Term 4 Induced 1 Spontaneous 1 Premature 8 Living 11 Ectopics 0 Total 14 Immunizations Vaccine Type Date Status Note Provider Nam e and Address Organization Details Recorded Time COVID-19, mRNA, LNP-S, PF, 30 mcg/0.3 mL dose 1 completed Not Available [facility] 08/01/2023 00:07:31 COVID-19, mRNA, LNP-S, PF, 30 mcg/0.3 mL dose 1 completed Not Available [facility] 08/01/2023 00:07:31 Influenza, split virus, quadrivalent, preservative 2 completed Ezequiel Barron MA null, [place] - [facility] 08/03/2021 11:02:21 COVID-19, mRNA, LNP-S, PF, 30 mcg/0.3 mL dose 2 completed Whit Mendoza MA null, [place] - [facility] 08/03/2021 12:12:41 Past Encounters Encounter ID Performer Location Encounter Start Date Encounter Closed Date Diagnosis/Indication Diagnosis SNOMED-CT Code Diagnosis ICD10 Code Diagnosis IMO Codes Diagnosis Note [id number] MD Yara Mcclelland (Adult Med) [address] [place] [address] [phone] 06/25/2014 15:22:53 06/25/2014 16:27:36 Essential hypertension 25408006 Hyperlipidemia 11498653 Gastroesop hageal reflux disease 951555218 [id number] [facility] [address] [place] [address] [id number] 09/01/2014 15:37:33 09/01/2014 17:22:59 Gynecologic examination 89565714 Screening mammography 02423618 [id number] [facility] [address] [place] [address] [id number] 0 12/03/2014 14:49:02 12/03/2014 15:27:54 Essential hypertension 51328112 Gastroesop hageal reflux disease 885036202 Carpal gloria jolynn syndrome 83833556 [id number] [facility] [address] [place] [address] [phone] 0 12/25/2014 14:42:53 12/25/2014 17:59:51 Carpal tunnel syndrome 64400515 Essential hypertension 46786405 Hyperlipidemia 27326081 Glucose le wilfredo outside reference range 239514995 [id number] MD Yara Mcclelland (Adult Med) [address] [place] [address] [id number] 0 02/10/2015 11:48:41 02/10/2015 16:08:43 Carpal tunnel syndrome 02394618 Hyperlipidemia 85749452 Essential hypertension 99127756 Glucose le wilfredo outside reference range 428764487 [id number] Daniella Ortiz MD [facility] (Adult Med) [address] [place] [address] [phone] [id number] 06/03/2015 14:45:13 06/03/2015 15:29:30 Essential hypertension 40628768 I10 Hyperlipidemia 82870404 E78.5 Glucose le wilfredo outside reference range 722294852 R73.09 Gastroesop hageal reflux disease 104568084 K21.9 [id number] MD Yara Mcclelland (Adult Med) [address] [place] [address] [id number] 0 07/27/2015 12:14:17 07/28/2015 09:57:15 Glucose level outside reference range 369157832 R73.09 Carpal gloria jolynn syndrome 09091899 G56.01 Essential hypertension 20905442 I10 Gastroesop hageal reflux disease 238286087 K21.9 Hyperlipidemia 21263987 E78.5 [id number] [facility] [address] [place] [address] [id number] 0 09/10/2015 15:59:53 09/10/2015 18:12:11 Essential hypertension 76209075 I10 Carpal gloria jolynn syndrome 61015023 G56.01 Gastroesop hageal reflux disease 397071997 K21.9 Hyperlipidemia 93914608 E78.5 Glucose le wilfredo outside reference range 088297423 R73.09 Acute bronchitis 5605653 2 J20.9 [id number] MD Yara Mcclelland (Adult Med) [address] [place] [address] [id number] 11/23/2015 16:32:09 11/23/2015 17:14:31 Essential hypertension 61910559 I10 Hyperlipidemia 73686224 E78.5 Carpal gloria jolynn syndrome 75749841 G56.01 Osteoarthr itis of knee 496956182 M17.9 [id number] MD Yara Mcclelland (Adult Med) [address] [place] [address] [id number] 03/03/2016 14:18:56 03/03/2016 18:01:09 Contusion of multiple sites 840459643 T14.8 [id number] MD Yara Mcclelland (Adult Med) [address] [place] [address] [id number] 06/21/2016 15:02:21 06/22/2016 11:04:03 Acute bronchitis 40600624 J20.9 Shoulder j oint painful on movement 175459894 M25.519 Pruritic rash 98109058 L 28.2 [id number] MD Yara Freitas (GROOMING ASSISTANT) [address] [place] [address] [id number] 09/06/2016 14:56:52 09/07/2016 11:45:37 Candidal vulvovaginitis 71908145 B37.3 Atrophic vaginitis 92851 000 N95.2 Obesity 227933815 E66.9 [id number] [facility] [address] [place] [address] [id number] 10/31/2016 15:58:17 10/31/2016 18:04:15 Osteoarthritis of knee 121613782 M17.9 OTC calcium/vi tamin D daily. Essential hypertension 37956327 I10 Low salt diet. Adult [facility] th examination 430745801 Z00.00 Hyperglycemia 38292560 R 73.9 [id number] [facility] [address] [place] [address] [phone] 01/10/2017 15:42:09 01/10/2017 17:15:41 Essential hypertension 04502468 I10 Low salt diet. Type 2 beatriz betes mellitus 87057473 E11.9 Diabetic diet, exercise, lose weight. She is going to see ophthalmol ogist in February 2017. Will add tradjenta. She has lost about 30 pounds for the one year, she feels good about it. she refuses the idea of getting insulin shot. Chronic in stability of knee 716465337 M23.52 Under the care of her orthopedic . Skin lesion 38689832 L98 .9 Left thigh, subcutaneo us. Screening for malignant neoplasm of colon 303245305 Z12.11 she refuses. Screening mammography 24 894623 Z12.31 She is on the schedule of annual screening mammogram. [id number] MD Yara Mcclelland (Adult Med) [address] [place] [address] [phone] 0 04/11/2017 15:38:38 04/11/2017 17:03:06 Gastroesophageal reflux disease 358754491 K21.9 Essential hypertension 32099161 I10 Low salt diet. BP is well controlled . Type 2 beatriz betes mellitus 79669946 E11.9 Diabetic diet, exercise, lose weight. She is going to see ophthalmol ogist in February 2017. Will add tradjenta. She has lost about 30 pounds for the one year, she feels good about it. she refuses the idea of getting insulin shot. She has enough pills for her type 2 DM, and encourage her to have exercise and lose weight. HgA1c went u and [facility] as well,on 03-02-2017 , copies of her cmp, HgA1c and lipid provided to her today 04-11-2017 . On metformin 850 mg twice/day, januvia 50 mg/day and tradjenta 5mg/day. [id number] MD Yara Mcclelland (Adult Med) [address] [place] [address] [phone] [id number] 05/30/2017 15:25:37 05/30/2017 16:35:10 Type 2 diabetes mellitus 63926831 E11.9 She is self managing her self for the diabetes mellitus, she stopped her medication , pill and no insulin shot. Her HgA1C is 10% on 05-18-2017 ,patient is informed today visit. she just saw ophthalmol ogist this month and was told that her eyes are perfect normal. Dyslipidem ia due to type 2 diabetes mellitus 7923672620 02 E78.5 LDL was 154 mg%, will raise atorvastat in from 20 to 40 mh/day. Low saturated fat diet. Exercise and keep the weight down. She agreed. Essential hypertension 26218810 I10 Low salt diet. BP is well controlled . Administra tion of influenza vaccine 27376307 Z23 Patient refuses. Screening for malignant neoplasm of colon 776129791 Z12.11 Patient refuses. [id number] MD Yara Freitas (GROOMING ASSISTANT) [address] [place] [address] [phone] 10/24/2017 14:50:25 10/24/2017 16:00:21 Gynecologic examination 91443350 Z01.419 Z11.51 Screening mammography 24 034717 Z12.31 Candidiasis of skin 4988 3006 B37.2 Type 2 beatriz betes mellitus 46433072 E11.9 [id number] MD Yara Mcclelland (Adult Med) [address] [place] [address] [id number] 11/27/2017 14:31:13 11/27/2017 15:28:26 Essential hypertension 43028881 I10 Low salt diet. BP is well controlled . Refills of medication s. Gastroesop hageal reflux disease 683849274 K21.9 Stable.Ref ills of medication . Type 2 beatriz betes mellitus 16702636 E11.9 She is self managing her self for the diabetes mellitus, she stopped her medication , pill and no insulin shot. Her HgA1C is 10% on 05-18-2017 ,patient is informed today visit. she just saw ophthalmol ogist this month and was told that her eyes are perfect normal. HgA1C is 8.5% 11-27-2017 , still dose not want to take any medication : no pill or insulin, she is informed today. [id number] MD Yara Mcclelland (Adult Med) [address] [place] [address] [id number] 01/08/2018 16:08:42 01/09/2018 12:02:27 Injury of foot 165180505 S99.922A [id number] MD Yara Mcclelland (Adult Med) [address] [place] [address] [id number] [id number] 03/08/2018 15:24:32 03/12/2018 10:00:13 Injury of foot 355505676 S99.922A Left side , will have surgery bt Dr. Bedolla in 03-21-2018 . Medical clearnce. called. [id number] MD Yara Mcclelland (Adult Med) [address] [place] [address] [id number] 0 04/03/2018 16:39:43 04/04/2018 10:33:17 Type 2 diabetes mellitus without complication 439933511 E11.9 Diabetic diet, she dose not like insulin shot, Her DM has to be under controlled before foot surgery. will add glimepirid e. [id number] Daniella Ortiz MD [facility] (Adult Med) [address] [place] [address] [id number] 0 04/10/2018 12:04:55 04/10/2018 13:58:13 Type 2 diabetes mellitus 67468562 E11.9 She is self managing her self for the diabetes mellitus, she stopped her medication , pill and no insulin shot. Her HgA1C is 10% on 05-18-2017 ,patient is informed today visit. she just saw ophthalmol ogist this month and was told that her eyes are perfect normal. HgA1C is 8.5% 11-27-2017 , still dose not want to take any medication : no pill or insulin, she is informed today. [id number] Daniella Ortiz MD [facility] (Adult Med) [address] [place] [address] [id number] 0 04/17/2018 15:32:25 04/18/2018 13:46:10 Type 2 diabetes mellitus without complication 311381413 E11.9 Diabetic diet, she dose not like insulin shot, Her DM has to be under controlled before foot surgery. will add glimepirid e. [id number] [facility] [address] [place] [address] [id number] 0 04/24/2018 16:04:49 04/24/2018 17:46:56 Uncontrolled type 2 diabetes mellitus 581237559 E11.65 Diet, pills. will try insulin shot in addition. Injury of foot 269298553 S99.922A Left side , will have surgery bt Dr. Bedolla in 03-21-2018 . Medical clearnce. called. [id number] Daniella Ortiz MD [facility] (Adult Med) [address] [place] [address] [phone] 05/03/2018 12:24:53 05/03/2018 13:31:43 Type 2 diabetes mellitus 83005070 E11.9 She is self managing her self for the diabetes mellitus, she stopped her medication , pill and no insulin shot. Her HgA1C is 10% on 05-18-2017 ,patient is informed today visit. she just saw ophthalmol ogist this month and was told that her eyes are perfect normal. HgA1C is 8.5% 11-27-2017 , still dose not want to take any medication : no pill or insulin, she is informed today. She is on 15 units/day, HgA1c is 10.0% 05-03-2018 .Discussed with patient that she agrees to go on 20 units /day. [id number] [facility] [address] [place] [address] [phone] 0 05/28/2018 14:15:50 05/28/2018 14:56:31 Type 2 diabetes mellitus 72502346 E11.9 She is self managing her self for the diabetes mellitus, she stopped her medication , pill and no insulin shot. Her HgA1C is 10% on 05-18-2017 ,patient is informed today visit. she just saw ophthalmol ogist this month and was told that her eyes are perfect normal. HgA1C is 8.5% 11-27-2017 , still dose not want to take any medication : no pill or insulin, she is informed today. She is on 15 units/day, HgA1c is 10.0% 05-03-2018 .Discussed with patient that she agrees to go on 20 units /day. Discussed with patient, she agreed to test HgA1c at laboratory today , if around 7% , then will contact her podiatry and oK for the foot surgery. She will see her ophthalmol ogist next month. This office ran out the HgA1c strip. Acute uppe r respiratory infection 43851888 J06.9 resolving. Chronic low back pain 27 2703586 M54.5 Under the care of her orthopedic . [id number] MD Yara Mcclelland (Adult Med) [address] [place] [address] 20550-797 0 05/31/2018 10:44:58 05/31/2018 12:03:17 Pain of right wrist 3358240068 87086 M25.531 She prefers to see her regular orthopedic Dr. Leslie Keith. On tylenol and ibuprofen, declines any muscle relaxant. [id number] MD Yara Mcclelland (Adult Med) [address] [place] [address] [phone] 0 07/24/2018 12:13:40 07/25/2018 09:22:45 Type 2 diabetes mellitus without complication 150765717 E11.9 Diabetic diet, she dose not like insulin shot, Her DM has to be under controlled before foot surgery. will add glimepirid e.Discusse d with patient, will low the glimepirid e to 1 mg/day. [id number] MD Yara Mcclelland (Adult Med) [address] [place] [address] [phone] 0 08/14/2018 14:31:00 08/15/2018 08:53:42 Pain in left foot 3053927710 05036 M79.672 injured tendon. No medical contraindi cation for left foot operation in the near future. Type 2 beatriz betes mellitus without complication 891637040 E11.9 Diabetic diet, she dose not like insulin shot, Her DM has to be under controlled before foot surgery. will add glimepirid e.Zina d with patient, will low the glimepirid e to 1 mg/day. Well controlled . Laboratory test before next office visit, [id number] Daniella Ortiz MD [facility] (Adult Med) [address] [place] [address] [phone] 10/25/2018 14:37:56 10/25/2018 15:24:56 Type 2 diabetes mellitus 48780195 E11.9 She is self managing her self for the diabetes mellitus, she stopped her medication , pill and no insulin shot. Her HgA1C is 10% on 05-18-2017 ,patient is informed today visit. she just saw ophthalmol ogist this month and was told that her eyes are perfect normal. HgA1C is 8.5% 11-27-2017 , still dose not want to take any medication : no pill or insulin, she is informed today. She is on 15 units/day, HgA1c is 10.0% 05-03-2018 .Discussed with patient that she agrees to go on 20 units /day. Discussed with patient, she agreed to test HgA1c at laboratory today , if around 7% , then will contact her podiatry and oK for the foot surgery. She will see her ophthalmol ogist next month. This office ran out the HgA1c strip. Essential hypertension 23299145 I10 Low salt diet. BP is well controlled . Refills of medication s. On lisinopril and amlodipine . Gastroesop hageal reflux disease 730878595 K21.9 Stable.Ref ills of medication . On ranitidine . [id number] MD Yara Mcclelland (Adult Med) [address] [place] [address] 01/24/2019 11:14:28 01/24/2019 12:48:54 Type 2 diabetes mellitus 66976036 E11.9 She is self managing her self for the diabetes mellitus, she stopped her medication , pill and no insulin shot. Her HgA1C is 10% on 05-18-2017 ,patient is informed today visit. she just saw ophthalmol ogist this month and was told that her eyes are perfect normal. HgA1C is 8.5% 11-27-2017 , still dose not want to take any medication : no pill or insulin, she is informed today. She is on 15 units/day, HgA1c is 10.0% 05-03-2018 .Discussed with patient that she agrees to go on 20 units /day. Discussed with patient, she agreed to test HgA1c at laboratory today , if around 7% , then will contact her podiatry and oK for the foot surgery. She will see her ophthalmol ogist next month. This office ran out the HgA1c strip. Essential hypertension 05231882 I10 Low salt diet. BP is well controlled . Refills of medication s. On lisinopril and amlodipine . Acid reflux 149830481 K2 1.9 STABLE. Type 2 beatriz betes mellitus without complication 907467580 E11.9 Diabetic diet, she dose not like insulin shot, Her DM has to be under controlled before foot surgery. will add glimepirid e.Discusse d with patient, will low the glimepirid e to 1 mg/day. Well controlled . Laboratory test before next office visit, Allergic c ontact dermatitis [id number] L23.9 [id number] MD Yara Mcclelland (Adult Med) [address] [place] [address] 04/23/2019 16:32:45 04/25/2019 09:36:56 Ankle pain 759883408 M25.579 Under the care of podiatry, will have surgery tomorrow. Medical clear for ankle operation. message faxed to some day surgery and Dr. Rammacher 's office at 5 59 PM, 03-24-2019 , patient informed in this office before she left . [id number] MD Yara Mcclelland (Adult Med) [address] [place] [address] 05/07/2019 14:58:42 05/08/2019 09:44:26 Chronic disease of skin 750066213 L98.9 [id number] MD Yara Mcclelland (Adult Med) [address] [place] [address] 08/07/2019 14:40:18 08/07/2019 16:23:05 Dyslipidemia due to type 2 diabetes mellitus 2211235799 02 E78.5 LDL was 154 mg%, will raise atorvastat in from 20 to 40 mh/day. Low saturated fat diet. Exercise and keep the weight down. She agreed. Type 2 beatriz betes mellitus 78433544 E11.9 She is self managing her self for the diabetes mellitus, she stopped her medication , pill and no insulin shot. Her HgA1C is 10% on 05-18-2017 ,patient is informed today visit. she just saw ophthalmol ogist this month and was told that her eyes are perfect normal. HgA1C is 8.5% 11-27-2017 , still dose not want to take any medication : no pill or insulin, she is informed today. She is on 15 units/day, HgA1c is 10.0% 05-03-2018 .Discussed with patient that she agrees to go on 20 units /day. Discussed with patient, she agreed to test HgA1c at laboratory today , if around 7% , then will contact her podiatry and oK for the foot surgery. She will see her ophthalmol ogist next month. This office ran out the HgA1c strip. Essential hypertension 90531842 I10 Low salt diet. BP is well controlled . Refills of medication s. On lisinopril and amlodipine . Type 2 beatriz betes mellitus without complication 643511344 E11.9 Diabetic diet, she dose not like insulin shot, Her DM has to be under controlled before foot surgery. will add glimepirid e.Discusse d with patient, will low the glimepirid e to 1 mg/day. Well controlled . Laboratory test before next office visit, Acid reflux 544482258 K2 1.9 STABLE. [id number] MD Yara Mcclelland (Adult Med) [address] [place] [address] 11/18/2019 15:03:25 11/20/2019 10:54:09 Essential hypertension 41871844 I10 Low salt diet. BP is well controlled . Refills of medication s. On lisinopril and amlodipine . Type 2 beatriz jean mellitus without complication 405409783 E11.9 Diabetic diet, she dose not like insulin shot, Her DM has to be under controlled before foot surgery. will add glimepirid e.Discusse d with patient, will low the glimepirid e to 1 mg/day. Well controlled . Laboratory test before next office visit, Type 2 beatriz jean mellitus 03801292 E11.9 She is self managing her self for the diabetes mellitus, she stopped her medication , pill and no insulin shot. Her HgA1C is 10% on 05-18-2017 ,patient is informed today visit. she just saw ophthalmol ogist this month and was told that her eyes are perfect normal. HgA1C is 8.5% 11-27-2017 , still dose not want to take any medication : no pill or insulin, she is informed today. She is on 15 units/day, HgA1c is 10.0% 05-03-2018 .Discussed with patient that she agrees to go on 20 units /day. Discussed with patient, she agreed to test HgA1c at laboratory today , if around 7% , then will contact her podiatry and oK for the foot surgery. She will see her ophthalmol ogist next month. This office ran out the HgA1c strip. Dyslipidem ia due to type 2 diabetes mellitus 0631421723 02 E78.5 LDL was 154 mg%, will raise atorvastat in from 20 to 40 mh/day. Low saturated fat diet. Exercise and keep the weight down. She agreed. [id number] MD Guillermo GoldsteinsoZelalem frias [address] [place] [address] 12/16/2019 10:48:47 12/17/2019 12:09:55 Viral screening 004421776 Z11.59 [id number] MD Yara Mcclelland (Adult Med) [address] [place] [address] 01/24/2020 09:50:19 01/29/2020 12:09:00 Progressive pigmentary dermatosis [facility] 37827064 L81.7 Will D/C amlodipine . Willbe replaced with metoprolol . Type 2 beatriz jean mellitus 10513575 E11.9 She is self managing her self for the diabetes mellitus, she stopped her medication , pill and no insulin shot. Her HgA1C is 10% on 05-18-2017 ,patient is informed today visit. she just saw ophthalmol ogist this month and was told that her eyes are perfect normal. HgA1C is 8.5% 11-27-2017 , still dose not want to take any medication : no pill or insulin, she is informed today. She is on 15 units/day, HgA1c is 10.0% 05-03-2018 .Discussed with patient that she agrees to go on 20 units /day. Discussed with patient, she agreed to test HgA1c at laboratory today , if around 7% , then will contact her podiatry and oK for the foot surgery. She will see her ophthalmol ogist next month. This office ran out the HgA1c strip. She wants to go to [facility] out patient for HgA1c test. 01-24-2020 . Essential hypertension 48549331 I10 Low salt diet. BP is well controlled . Refills of medication s. On lisinopril and amlodipine . Type 2 beatriz jean mellitus without complication 027369942 E11.9 Diabetic diet, she dose not like insulin shot, Her DM has to be under controlled before foot surgery. will add glimepirid e.Discusse d with patient, will low the glimepirid e to 1 mg/day. Well controlled . Laboratory test before next office visit, Gastroesop hageal reflux disease 219292366 K21.9 Stable.Ref ills of medication . On ranitidine . Hypertensive disorder 38 000515 I10 Hyperlipidemia 45901766 E78.5 Acid reflux 630696977 K2 1.9 STABLE. Chronic low back pain 27 8831091 M54.5 Under the care of her orthopedic . [id number] MD Yara Freitas (GROOMING ASSISTANT) [address] [place] [address] 04/01/2020 09:32:20 04/02/2020 09:20:08 Acute urinary tract infection 505131023 N39.0 have pt finish antibiotic s prescribed at ER. Will analyze urine to make due infection has cleared up. [id number] MD Yara Mcclelland (Adult Med) [address] [place] [phone] 06/16/2020 08:21:04 06/16/2020 17:56:26 Acute low back pain 296560569 M54.5 Discussed with patient, she agreed for the ordered as below. [id number] MD Yara Mcclelland (Adult Med) [address] [place] [phone] 06/16/2020 12:09:39 06/17/2020 09:39:30 Acute low back pain 108565477 M54.5 Discussed with patient, she agreed for the ordered as below. [id number] MD Yara Mcclelland (Adult Med) [address] [place] [phone] 08/27/2020 08:40:00 08/31/2020 10:31:21 Essential hypertension 33304954 I10 Low salt diet. BP is well controlled . Refills of medication s. On lisinopril and amlodipine . [id number] MD Yara Mcclelland (Adult Med) [address] [place] [address] 10/23/2020 08:05:25 10/26/2020 11:46:51 Essential hypertension 06660827 I10 Low salt diet. BP is well controlled . Refills of medication s. On lisinopril and amlodipine . Gastroesop hageal reflux disease 463921961 K21.9 Stable.Ref ills of medication . On ranitidine . Hyperlipidemia 91566744 E78.5 Low animal fat diet. Osteoarthr itis of knee 689622360 M17.9 OTC calcium/vi tamin D daily. Type 2 beatriz betes mellitus 07085815 E11.9 Diabetic diet, exercise and lose weight. Her HGA! c has gone up to 9.0 recently. will adjust dose of her medication s. and repeat HGA1c next week. [id number] MD Yara Mcclelland (Adult Med) [address] [place] [phone] 12/01/2020 08:23:06 12/03/2020 10:10:43 Essential hypertension 58897763 I10 Low salt diet. BP is well controlled . Refills of medication s. On lisinopril and amlodipine . Gastroesop hageal reflux disease 576790004 K21.9 Stable.Ref ills of medication . On ranitidine . Hyperlipidemia 34302985 E78.5 Low animal fat diet. Osteoarthr itis of knee 901300878 M17.9 OTC calcium/vi tamin D daily. Type 2 beatriz betes mellitus 01163190 E11.9 Diabetic diet, exercise and lose weight. Her HGA! c has gone up to 9.0 recently. will adjust dose of her medication s. and repeat HGA1c next week. [id number] MD Yara Mcclelland (Adult Med) [address] [place] [phone] 12/21/2020 10:08:37 12/22/2020 11:04:13 Type 2 diabetes mellitus 52704044 E11.9 Diabetic diet, exercise and lose weight. Her HGA! c has gone up to 9.0 recently. will adjust dose of her medication s. and repeat HGA1c next week. On pioglitazo ne and glimepirid e. Carpal gloria jolynn syndrome 58606567 G56.01 Right site, will be operated by Dr. Valera. Essential hypertension 71621373 I10 Low salt diet. BP is well controlled . Refills of medication s. On lisinopril and amlodipine . Gastroesop hageal reflux disease 696908371 K21.9 Stable.Ref ills of medication . On ranitidine . Hyperlipidemia 22172087 E78.5 Low animal fat diet. Osteoarthr itis of knee 608584500 M17.9 OTC calcium/vi tamin D daily. will be operated arthroscop ic procedure by Dr. Jameson Guerin. [id number] MD Yara Mcclelland (Adult Med) [address] [place] [phone] 12/31/2020 08:32:50 01/04/2021 16:08:36 Hypoglycemia 394120584 E16.2 Will adjust her DM medication s. Type 2 beatriz betes mellitus 76575192 E11.65 Diabetic diet, exercise and lose weight. Her HGA! c has gone up to 9.0 recently. will adjust dose of her medication s. and repeat HGA1c next week. On pioglitazo ne and glimepirid e. Carpal gloria jolynn syndrome 48140812 G56.01 Right site, will be operated by Dr. Valera. post operative, recuperati ng. [id number] MD Yara Mcclelland (Adult Med) [address] [place] [address] 04/01/2021 14:34:09 04/05/2021 10:56:19 Type 2 diabetes mellitus 14051330 E11.65 Diabetic diet, exercise and lose weight. Her HGA! c has gone up to 9.0 recently. will adjust dose of her medication s. and repeat HGA1c next week. On pioglitazo ne and glimepirid e. Hypertensive disorder 38 991342 I10 Low salt diet, avoid NSAID or OTV decongesta nt if possible. reading today is 154/74 mm Hg 04-01-2021 , will continue to monitor her blood pressure. Morbid obesity 488961483 E66.01 Diet, exercise and lose weight , willing to try some pills. Chronic in stability of right knee joint 0646822454 06942 M23.51 Under the care of her orthopedic . [id number] Daniella Ortiz MD [facility] (Adult Med) [address] [place] [address] 04/20/2021 15:41:52 04/21/2021 11:45:18 Pain in right foot 5659445549 98346 M79.671 Will be operated on of May 2021, No chest pain, no difficulty of breathing, on no blood thinner, no edema of legs, allergic to aleve, claritin, latex and penicillin s. Since 2020 she already had 3- 4 operations , so far she tolerate dwell. probabaly due to her left foot pain, her BP might have been exaggerate d, will continue to monitor , she has enough medication s . Last Hga1 c on 12-21-2020 was 6.7%., seems safe to go thru operation, this office sees no medical contraindi cation for right foot operation. will ask office of deflector operator to send form to this office. Type 2 beatriz betes mellitus 46556132 E11.65 Diabetic diet, exercise and lose weight. Her HGA! c has gone up to 9.0 recently. will adjust dose of her medication s. and repeat HGA1c next week. On pioglitazo ne and glimepirid e. seems well controlled . Hga1c was 6.7 % 12-21-2020 . [id number] MD Yara Mcclelland (Adult Med) [address] [place] [address] 05/26/2021 14:46:35 05/28/2021 12:33:15 Type 2 diabetes mellitus 30449013 E11.65 Diabetic diet, exercise and lose weight. Her HGA! c has gone up to 9.0 recently. will adjust dose of her medication s. and repeat HGA1c next week. On pioglitazo ne and glimepirid e. seems well controlled . Hga1c was 6.7 % 12-21-2020 . HgA1 is 7.0% patient informed 05-26-2021 in office. Contusion of left ankle [id number] 5270234 S90.02XD Medical clear for left foot surgery next week. Dr. Bedolla office informed. Faxed 05-26-2021 . [id number] MD Yara Mcclelland (Adult Med) [address] [place] [phone] 08/03/2021 10:28:56 08/04/2021 07:50:10 Administration of influenza vaccine 37021539 Z23 Patient refuses. [id number] KAREN SINGER (Peds) [address] [place] [phone] 08/03/2021 10:59:57 08/03/2021 12:47:45 Administration of SARS-CoV-2 mRNA vaccine 9782774820 Z23 [id number] MD Yara Mcclelland (Adult Med) [address] [place] [phone] 08/26/2021 15:15:11 08/27/2021 11:37:12 Essential hypertension 64098101 I10 Low salt diet. BP is well controlled . Refills of medication s. On lisinopril and amlodipine . Type 2 beatriz betfaina mellitus 09497691 E11.65 Diabetic diet, exercise and lose weight. Her HGA! c has gone up to 9.0 recently. will adjust dose of her medication s. and repeat HGA1c next week. On pioglitazo ne and glimepirid e. seems well controlled . Hga1c was 6.7 % 12-21-2020 . HgA1 is 7.0% patient informed 05-26-2021 in office. Weight gain 0023232 R63. 5 Discussed with patient, will try xenical, she agreed to try. [id number] MD Yara Mcclelland (Adult Med) [address] [place] [address] 12/02/2021 14:45:05 12/03/2021 11:36:01 Carpal tunnel syndrome 12719211 G56.01 Right site, will be operated by Dr. Valera. post operative, recuperati ng. Essential hypertension 29279840 I10 Low salt diet. BP is well controlled . Refills of medication s. On lisinopril and amlodipine . Blood pressure is 140/70 mm HG, re-checked by Dr Ortiz, left arm , sitting, big cuff adult . Gastroesop hageal reflux disease 172265210 K21.9 Stable.Ref ills of medication . On ranitidine . Hyperlipidemia 57967818 E78.5 Low animal fat diet. Osteoarthr itis of knee 082772625 M17.9 OTC calcium/vi tamin D daily. will be operated arthroscop ic procedure by Dr. Jameson Guerin. Type 2 beatriz betes mellitus 87864236 E11.65 Diabetic diet, exercise and lose weight. Her HGA! c has gone up to 9.0 recently. will adjust dose of her medication s. and repeat HGA1c next week. On pioglitazo ne and glimepirid e. seems well controlled . Hga1c was 6.7 % 12-21-2020 . HgA1 is 7.0% patient informed 05-26-2021 in office. Seasonal a llergic rhinitis 878897273 J30.2 Stable. will refill med. Screening for malignant neoplasm of colon 194768588 Z12.11 Patient refuses. [id number] MD Yara Mcclelland (Adult Med) [address] [place] [address] 03/04/2022 15:15:56 03/08/2022 08:44:58 Cataract 802594147 H26.9 Under the care of her ophthalmol ogist. Glaucoma 51587851 H40.9 Under the care of ophthalmol ogist. Posey's esophagus 3029 76882 K22.70 Under the care of her GI specialist . Type 2 beatriz betes mellitus 80824192 E11.65 Diabetic diet, exercise and lose weight. Her HGA! c has gone up to 9.0 recently. will adjust dose of her medication s. and repeat HGA1c next week. On pioglitazo ne and glimepirid e. seems well controlled . Hga1c was 6.7 % 12-21-2020 . HgA1 is 7.0% patient informed 05-26-2021 in office. Non-alcoho lic fatty liver 354674599 K76.0 CT reported. Essential hypertension 43507064 I10 Low salt diet. BP is well controlled . Refills of medication s. On lisinopril and amlodipine . Blood pressure is 140/70 mm HG, re-checked by Dr Ortiz, left arm , sitting, big cuff adult . Seasonal a llergic rhinitis 328500362 J30.2 Stable. will refill med. Dyslipidem ia due to type 2 diabetes mellitus 7160464811 02 E78.5 LDL was 154 mg%, will raise atorvastat in from 20 to 40 mg/day. Low saturated fat diet. Exercise and keep the weight down. She agreed. Morbid obesity 668581033 E66.01 Diet, exercise and lose weight , willing to try some pills. but later she declines. [id number] MD Yara Mcclelland (Adult Med) [address] [place] [phone] 07/22/2022 11:12:59 07/25/2022 13:44:51 Smoker 22332488 F17.200 She is not a smoker. Type 2 beatriz betes mellitus 41611103 E11.65 Diabetic diet, exercise and lose weight. Her HGA! c has gone up to 9.0 recently. will adjust dose of her medication s. and repeat HGA1c next week. On pioglitazo ne and glimepirid e. seems well controlled . Hga1c was 6.7 % 12-21-2020 . HgA1 is 7.0% patient informed 05-26-2021 in office. Dyslipidem ia due to type 2 diabetes mellitus 9116075831 02 E78.5 LDL was 154 mg%, will raise atorvastat in from 20 to 40 mg/day. Low saturated fat diet. Exercise and keep the weight down. She agreed. Essential hypertension 57250292 I10 Low salt diet. BP is well controlled . Refills of medication s. On lisinopril and amlodipine . Blood pressure is 140/70 mm HG, re-checked by Dr Ortiz, left arm , sitting, big cuff adult . She has blood presure monitor at home. just took one med for hypertensi on this AM. Acid reflux 073716957 K2 1.9 STABLE. On pantoprazo le from her GI specialist . Seasonal a llergic rhinitis 032171922 J30.2 Stable. will refill med. [id number] MD Yara Mcclelland (Adult Med) [address] [place] [phone] 11/10/2022 15:41:07 11/11/2022 09:49:09 Plantar fasciitis of right foot 2855648831 7028633 M72.2 Is going to have operation by her deflector operator , needs EKG, lab updates.If EKG and lab are near normal or acceptable from safety stand point , then this office has no objection for the foot operation, will keep her deflector operator Dr Tessa Carrillo off ice informed. [id number] KAREN BEACH (GROOMING ASSISTANT) [address] [place] [phone] 11/15/2022 14:14:08 11/17/2022 14:42:22 Gynecologic examination 40621332 Z01.419 Normal gynecologi c exam today.Cerv ical cancer screening: Last Pap 10/24/2017 NILM/HPV negative, updated todayBreas t cancer screening: Last mammo 07/28/2021 BIRADS 2Colonosco py: UTD (2021)Diet /exercise: Counseled regarding importance of physical activity, healthy diet and appropriat e calcium intake. DEXA UTDRTC in 1yr Screening for malignant neoplasm of breast 635503074 Z12.31 Annual screening order provided Obesity 643397150 E66.9 BMI 39.9. Recommende d daily exercise with a goal of 150 min/week of moderate-s trenuous activity and a balanced diet with an emphasis on fruits, vegetables , whole grains, legumes, lean protein, and mono/polyu nsaturated fats. Cyst of ovary 39548924 N 83.209 Pt states she was told she had an ovarian cyst when she had XR colon air contrast January 2022. Report reviewed and no mention of cyst. Will follow up with [facility] to assess. Candidal intertrigo 2661 04077 B37.2 Advised to keep areas clean and dry. [id number] KAREN BEACH [facility] (GROOMING ASSISTANT) [address] [place] [address] 01/31/2023 10:16:10 02/02/2023 11:57:37 Candidal intertrigo 245643553 B37.2 PE c/w candidal infection. Will prescribe topical nystatin cream and PO diflucan. Advised to keep areas clean and dry. RTC if symptoms do not improve. Essential hypertension 82830159 I10 Pt with elevated blood pressure reading in office (172/94). Asymptomat ic. She has follow up with PCP next week. ER precaution s discussed. Obesity 698597574 E66.9 BMI 38.8. Recommende d daily exercise with a goal of 150 min/week of moderate-s trenuous activity and a balanced diet with an emphasis on fruits, vegetables , whole grains, legumes, lean protein, and mono/polyu nsaturated fats. [id number] MD Yara Mcclelland (Adult Med) [address] [place] [address] 0 02/09/2023 14:11:15 02/15/2023 14:58:31 Essential hypertension 10527860 I10 Low salt diet. BP is well controlled . Refills of medication s. On lisinopril and amlodipine . Blood pressure is 140/70 mm HG, re-checked by Dr Ortiz, left arm , sitting, big cuff adult . She has blood pressure monitor at home. just took one med for hypertensi on this AM. Gastroesop hageal reflux disease 489741291 K21.9 Stable.Ref ills of medication . On ranitidine . Uncontroll ed type 2 diabetes mellitus 901659417 E11.65 Diet, pills. will try insulin shot in addition. Dyslipidem ia due to type 2 diabetes mellitus 2380925505 02 E78.5 LDL was 154 mg%, will raise atorvastat in from 20 to 40 mg/day. Low saturated fat diet. Exercise and keep the weight down. She agreed. Low animal fat diet. Type 2 beatriz betes mellitus 35265720 E11.65 Diabetic diet, exercise and lose weight. Her HGA! c has gone up to 9.0 recently. will adjust dose of her medication s. and repeat HGA1c next week. On pioglitazo ne and glimepirid e. seems well controlled . Hga1c was 6.7 % 12-21-2020 . HgA1 is 7.0% patient informed 05-26-2021 in office. [id number] Daniella Ortiz MD [facility] (Adult Med) [address] [place] [address] 05/05/2023 15:12:27 05/12/2023 10:06:59 Type 2 diabetes mellitus 05916821 E11.65 Diabetic diet, exercise and lose weight. Her HGA! c has gone up to 9.0 recently. will adjust dose of her medication s. and repeat HGA1c next week. On pioglitazo ne and glimepirid e. seems well controlled . Hga1c was 6.7 % 12-21-2020 . HgA1 is 7.0% patient informed 05-26-2021 in office. Essential hypertension 57518103 I10 Low salt diet. BP is well controlled . Refills of medication s. On lisinopril and amlodipine . Blood pressure is 140/70 mm HG, re-checked by Dr Ortiz, left arm , sitting, big cuff adult . She has blood pressure monitor at home. just took one med for hypertensi on this AM. As 05-05-23, BP is 130/80 , left arm , sitting by Dr Ortiz. Dyslipidem ia due to type 2 diabetes mellitus 4187990103 02 E78.5 LDL was 154 mg%, will raise atorvastat in from 20 to 40 mg/day. Low saturated fat diet. Exercise and keep the weight down. She agreed. Low animal fat diet. Obesity 269708974 E66.9 BMI down to 38.6 today diabetic diet, exercise and lose weight. 05-05-23. Gastroesop hageal reflux disease 789045609 K21.9 Stable.Ref ills of medication . On ranitidine . Uncontroll ed type 2 diabetes mellitus 649368671 E11.65 Diet, pills. will try insulin shot in addition. [id number] Daniella Ortiz MD [facility] (Adult Med) [address] [place] [address] 06/27/2023 16:13:57 06/28/2023 12:20:41 Pain of left knee joint 9887327148 81445 M25.562 Left knee sore for about one year, no injury. will x ray and orthopedic referral. She agreed. Acute resp iratory infections 695319141 J22 Chest congestion , dry cough. just finish the antibiotic s, She agreed to try med as ordered. Obesity 952583149 E66.9 BMI down to 38.6 today diabetic diet, exercise and lose weight. 05-05-23. BMI is 38.1 today 06-27-23. Diabetic r etinal eye exam not done 1352159199 103 Z53.9 She declined today 06-27-23. HIV screen ing declined 5165097244 07273 Z53.20 She declined today 06-27-23. [id number] [facility] [address] [place] [phone] 0 08/16/2023 15:16:34 08/17/2023 12:26:10 Uncontrolled type 2 diabetes mellitus 082412779 E11.65 Diet, pills. will try insulin shot in addition. Wants to refill pioglitazo ne. Arthritis of left knee joint 2561615283 461781 M13.862 Under the care of hemodialysis patient care specialist . [id number] MD Yara Mcclelland (Adult Med) [address] [place] [phone] 0 09/12/2023 15:32:19 09/13/2023 13:23:51 Adult health examination 722479120 Z00.00 Good physical ex, EKG is pending. other aragon no medical contraindi cation for left foot operation. [id number] MD Yara Licona (Adult Med) [address] [place] [address] [phone] 0 11/21/2023 13:15:40 11/21/2023 15:24:14 Essential hypertension 97298928 I10 Screening mammography 24 744198 Z12.31 Type 2 beatriz betes mellitus 25411767 E11.9 Hyperlipidemia 18960551 E78.5 [id number] MD Yara COSTA (GROOMING ASSISTANT) [address] [place] [phone] 0 01/29/2024 11:17:42 02/19/2024 15:41:44 Cyst of left ovary 0537786514 1177744 N83.202 Patient recently seen in the ED, for abdominal pain and was noted to have large ovarian cyst.CT abdo/pelvi s result showed left ovarian cyst measuring 8.6 cm. Discuss with patient about ovarian cysts in postmenopa usal women are sometimes benign but there is a small percentage that could also be cancerous. Recommend further evaluation to rule out cancer. [employer]otive [employer] referral placed. [id number] MD Yara Licona (Adult Med) [address] [place] [phone] 0 03/08/2024 09:15:27 03/08/2024 10:18:02 Type 2 diabetes mellitus 45502431 E11.9 Essential hypertension 73594151 I10 Contusion of left elbow 4105176413 0160030 S50.02XA Contusion of right knee 4307437859 6348528 S80.01XA [id number] MD Yara Licona (Adult Med) [address] [place] [phone] 06/18/2024 14:15:59 06/18/2024 15:02:36 Body mass index 30+ - obesity 972094038 Z68.39 Obesity 140914372 E66.9 Type 2 beatriz betes mellitus 48193118 E11.9 Essential hypertension 02481595 I10 Hyperlipidemia 27617927 E78.5 Gastroesop hageal reflux disease 996700606 K21.9 [id number] Renea Florentino MD [facility] (Adult Med) [address] [place] [address] [phone] 10/16/2024 13:51:22 10/16/2024 15:26:18 Body mass index 30+ - obesity 741696999 Z68.39 Obesity 418091832 E66.9 Type 2 beatrzi betes mellitus 53916762 E11.9 Essential hypertension 58121543 I10 Hyperlipidemia 61692675 E78.5 Gastroesop hageal reflux disease 363082559 K21.9 [id number] Renea Florentino MD [facility] (Adult Med) [address] [place] [address] [phone] 02/19/2025 14:16:44 02/19/2025 15:19:38 Essential hypertension 94070912 I10 Renewal of prescription 641938252 Z76.0 Obese class III 51420555 5 E66.813 E66.3 1356484264 BMI 40.1 Type 2 beatriz betes mellitus 35527808 E11.9 Hyperlipidemia 40537059 E78.5 [id number] Renea Florentino MD [facility] (Adult Med) [address] [place] [address] [phone] 05/21/2025 14:04:33 05/21/2025 16:26:35 Obese class II [id number] 83297 E66.812 E66.3 2933914942 Essential hypertension 34998891 I10 Hyperlipidemia 57166543 E78.5 Type 2 beatriz betes mellitus 45796827 E11.9 Gastroesop hageal reflux disease 758539610 K21.9 Health Concerns Section Related Observation LastModified by Organization Detai ls LastModified Time None Recorded Concern Status LastModified by Organization Details LastModified Time None Recorded Advance Directives Directive N: Payers Insurance Date Sequence Insurance Name Policy Number Policy Greenberg Covered Member ID Greenberg Member ID Guarantor Name 05/22/2025 1 [facility] PRIOR TO 2021 (MEDICAID REPLACEMENT - HMO) Nichol Guaman [id number] Nichol Guaman 05/26/2025 1 [facility] (MEDICAID HMO) [id number] Nichol Guaman [id number] Nichol Guaman Notes Date Note Type Note Provider Name and Address Organization Details Recorded Time 03/08/2024 text/html 1. Hypertension no headache no dizziness. GERD no nausea no vomiting she felt went to ER x-rays negative some bruising right knee and left elbow and she is getting better. Diabetes she has been out of control dyslipidemia she has been under control her dietary strategies are poor does not walk regularly. Does not remember last diabetic eye exam but says she is willing to set 1 up Renea Florentino MD Attn: Accounting, [address] [facility], [place], [address], [facility] 03/08/2024 10:25:31 06/18/2024 text/html follow up of medical problems she ran out of her blood pressure medicine unclear reasons dyslipidemia she says she is taking her atorvastatin she will need blood work diabetes denies polyphagia polydipsia or hypoglycemia. GERD no nausea vomiting or heartburn Renea Florentino MD Attn: Accounting, 1 [facility], [place], [address], [facility] - [facility] 07/23/2024 23:34:44 10/16/2024 text/html blood pressure looks well controlled dyslipidemia not taking her atorvastatin unclear why rhinitis is doing fine diabetes no polyphagia or polydipsia her GERD no nausea no vomiting Renea Florentino MD Attn: Accounting, [address] [facility], [place], [address], [facility] - [facility] 10/19/2024 11:30:12 02/19/2025 text/html Hypertension no headache or dizziness. Diabetes could do better with a sugar GERD has been stable is taking her atorvastatin she says regularly has not seen endo yet in his not seen ENT Renea Florentino MD Attn: Accounting, [address] [facility], [place], [address], [place] - [facility] 03/17/2025 20:49:37 05/21/2025 text/html Blood sugars not doing well but no polyphagia polydipsia. GERD no nausea vomiting. Dyslipidemia diet is poor hypertension blood pressure initially was high let her sit for about 15 minutes and did come down but it is not optimized Renea Florentino MD Attn: Accounting, [address] [facility], [place], [address], [place] - [facility] 05/25/2025 19:48:06 OBGyn Episode Ob Episode Information Episode Created Date Number of Fetuses Patient Bloodtype Patient rh Status Prepregnancy Weight lbs Domestic Partner Domestic Partner Phone Father Name Parachute Folder Status 09/09/19 17 1 CLOSED Fetus Data First Name Last Name Admitted to NICU Weight (g) Sex Living Outcome Pediatric Complications Fetus ID Race Codes Race Delivery Type 2267.96 M Prematur e 43328 Vaginal Dimitry Calculation Initial Dimitry Date Initial Exam Date Initial Exam Provider Initial Ultrasound Date Last Menstrual Period Date Ultra Sound Weeks Gestation 0 Eighteen To Twenty Week Dimitry Update Ultra Sound Date Fundal Height At Umbil Quickening Date Ultra Sound Latest Weeks Gestation Final Dimitry Confirmed By Final Dimitry Confirmed Date Final Dimitry Date Ultra Sound Latest Days Gestation 0 0 Menstrual History Last Menstrual Date Menses Monthly On Bcp Conception Prior Menses Frequency Hcg Plus Date Menarche Onset Age Delivery Information Delivery Date Delivery Type Labor Anesthesia Weeks Gestation Incision Type Labor Labor Length Hrs Delivered By Post Complications Tubal Sterilization Discharge Date Comments 9 None 35 Discharge Information Feeding Method Contraceptive Method Maternal HG B and HCT Levels Ob Episode Information Episode Created Date Number of Fetuses Patient Bloodtype Patient rh Status Prepregnancy Weight lbs Domestic Partner Domestic Partner Phone Father Name Parachute Folder Status 09/09/19 17 1 CLOSED Fetus Data First Name Last Name Admitted to NICU Weight (g) Sex Living Outcome Pediatric Complications Fetus ID Race Codes Race Delivery Type 1814.36 8 F [place] [address] Vaginal Dimitry Calculation Initial Dimitry Date Initial Exam Date Initial Exam Provider Initial Ultrasound Date Last Menstrual Period Date Ultra Sound Weeks Gestation 0 Eighteen To Twenty Week Dimitry Update Ultra Sound Date Fundal Height At Umbil Quickening Date Ultra Sound Latest Weeks Gestation Final Dimitry Confirmed By Final Dimitry Confirmed Date Final Dimitry Date Ultra Sound Latest Days Gestation 0 0 Menstrual History Last Menstrual Date Menses Monthly On Bcp Conception Prior Menses Frequency Hcg Plus Date Menarche Onset Age Delivery Information Delivery Date Delivery Type Labor Anesthesia Weeks Gestation Incision Type Labor Labor Length Hrs Delivered By Post Complications Tubal Sterilization Discharge Date Comments 2 None 30 Discharge Information Feeding Method Contraceptive Method Maternal HG B and HCT Levels Ob Episode Information Episode Created Date Number of Fetuses Patient Bloodtype Patient rh Status Prepregnancy Weight lbs Domestic Partner Domestic Partner Phone Father Name Parachute Folder Status 09/09/19 17 1 CLOSED Fetus Data First Name Last Name Admitted to NICU Weight (g) Sex Living Outcome Pediatric Complications Fetus ID Race Codes Race Delivery Type 3175.14 4 F Full Term 60639 Vaginal Dimitry Calculation Initial Dimitry Date Initial Exam Date Initial Exam Provider Initial Ultrasound Date Last Menstrual Period Date Ultra Sound Weeks Gestation 0 Eighteen To Twenty Week Dimitry Update Ultra Sound Date Fundal Height At Umbil Quickening Date Ultra Sound Latest Weeks Gestation Final Dimitry Confirmed By Final Dimitry Confirmed Date Final Dimitry Date Ultra Sound Latest Days Gestation 0 0 Menstrual History Last Menstrual Date Menses Monthly On Bcp Conception Prior Menses Frequency Hcg Plus Date Menarche Onset Age Delivery Information Delivery Date Delivery Type Labor Anesthesia Weeks Gestation Incision Type Labor Labor Length Hrs Delivered By Post Complications Tubal Sterilization Discharge Date Comments 6 None 40 false baby bor n at [place] Discharge Information Feeding Method Contraceptive Method Maternal HG B and HCT Levels Ob Episode Information Episode Created Date Number of Fetuses Patient Bloodtype Patient rh Status Prepregnancy Weight lbs Domestic Partner Domestic Partner Phone Father Name Parachute Folder Status 09/09/19 17 1 CLOSED Fetus Data First Name Last Name Admitted to NICU Weight (g) Sex Living Outcome Pediatric Complications Fetus ID Race Codes Race Delivery Type 3175.14 4 F Prematur e 31291 Vaginal Dimitry Calculation Initial Dimitry Date Initial Exam Date Initial Exam Provider Initial Ultrasound Date Last Menstrual Period Date Ultra Sound Weeks Gestation 0 Eighteen To Twenty Week Dimitry Update Ultra Sound Date Fundal Height At Umbil Quickening Date Ultra Sound Latest Weeks Gestation Final Dimitry Confirmed By Final Dimitry Confirmed Date Final Dimitry Date Ultra Sound Latest Days Gestation 0 0 Menstrual History Last Menstrual Date Menses Monthly On Bcp Conception Prior Menses Frequency Hcg Plus Date Menarche Onset Age Delivery Information Delivery Date Delivery Type Labor Anesthesia Weeks Gestation Incision Type Labor Labor Length Hrs Delivered By Post Complications Tubal Sterilization Discharge Date Comments 1 None 38 false Discharge Information Feeding Method Contraceptive Method Maternal HG B and HCT Levels Ob Episode Information Episode Created Date Number of Fetuses Patient Bloodtype Patient rh Status Prepregnancy Weight lbs Domestic Partner Domestic Partner Phone Father Name Parachute Folder Status 09/09/19 17 1 CLOSED Fetus Data First Name Last Name Admitted to NICU Weight (g) Sex Living Outcome Pediatric Complications Fetus ID Race Codes Race Delivery Type 1360.77 6 F Prematur e 39328 Vaginal Dimitry Calculation Initial Dimitry Date Initial Exam Date Initial Exam Provider Initial Ultrasound Date Last Menstrual Period Date Ultra Sound Weeks Gestation 0 Eighteen To Twenty Week Dimitry Update Ultra Sound Date Fundal Height At Umbil Quickening Date Ultra Sound Latest Weeks Gestation Final Dimitry Confirmed By Final Dimitry Confirmed Date Final Dimitry Date Ultra Sound Latest Days Gestation 0 0 Menstrual History Last Menstrual Date Menses Monthly On Bcp Conception Prior Menses Frequency Hcg Plus Date Menarche Onset Age Delivery Information Delivery Date Delivery Type Labor Anesthesia Weeks Gestation Incision Type Labor Labor Length Hrs Delivered By Post Complications Tubal Sterilization Discharge Date Comments 5 None 32 Discharge Information Feeding Method Contraceptive Method Maternal HG B and HCT Levels Ob Episode Information Episode Created Date Number of Fetuses Patient Bloodtype Patient rh Status Prepregnancy Weight lbs Domestic Partner Domestic Partner Phone Father Name Parachute Folder Status 09/09/19 17 1 CLOSED Fetus Data First Name Last Name Admitted to NICU Weight (g) Sex Living Outcome Pediatric Complications Fetus ID Race Codes Race Delivery Type 1814.36 8 M Prematur e 17949 Vaginal Only Dimitry Calculation Initial Dimitry Date Initial Exam Date Initial Exam Provider Initial Ultrasound Date Last Menstrual Period Date Ultra Sound Weeks Gestation 0 Eighteen To Twenty Week Dimitry Update Ultra Sound Date Fundal Height At Umbil Quickening Date Ultra Sound Latest Weeks Gestation Final Dimitry Confirmed By Final Dimitry Confirmed Date Final Dimitry Date Ultra Sound Latest Days Gestation 0 0 Menstrual History Last Menstrual Date Menses Monthly On Bcp Conception Prior Menses Frequency Hcg Plus Date Menarche Onset Age Delivery Information Delivery Date Delivery Type Labor Anesthesia Weeks Gestation Incision Type Labor Labor Length Hrs Delivered By Post Complications Tubal Sterilization Discharge Date Comments 7 [facility] bor n in [place], [place] Discharge Information Feeding Method Contraceptive Method Maternal HG B and HCT Levels Ob Episode Information Episode Created Date Number of Fetuses Patient Bloodtype Patient rh Status Prepregnancy Weight lbs Domestic Partner Domestic Partner Phone Father Name Parachute Folder Status 09/09/19 17 1 CLOSED Fetus Data First Name Last Name Admitted to NICU Weight (g) Sex Living Outcome Pediatric Complications Fetus ID Race Codes Race Delivery Type 3175.14 4 M Full Term 15883 Repeat Dimitry Calculation Initial Dimitry Date Initial Exam Date Initial Exam Provider Initial Ultrasound Date Last Menstrual Period Date Ultra Sound Weeks Gestation 0 Eighteen To Twenty Week Dimitry Update Ultra Sound Date Fundal Height At Umbil Quickening Date Ultra Sound Latest Weeks Gestation Final Dimitry Confirmed By Final Dimitry Confirmed Date Final Dimitry Date Ultra Sound Latest Days Gestation 0 0 Menstrual History Last Menstrual Date Menses Monthly On Bcp Conception Prior Menses Frequency Hcg Plus Date Menarche Onset Age Delivery Information Delivery Date Delivery Type Labor Anesthesia Weeks Gestation Incision Type Labor Labor Length Hrs Delivered By [facility] Com[facility] Information Feeding Method Contraceptive Method Maternal HG B and HCT Levels Ob Episode Information Episode Created Date Number of Fetuses Patient Bloodtype Patient rh Status Prepregnancy Weight lbs Domestic Partner Domestic Partner Phone Father Name Parachute Folder Status 09/09/19 17 1 CLOSED Fetus Data First Name Last Name Admitted to NICU Weight (g) Sex Living Outcome Pediatric Complications Fetus ID Race Codes Race Delivery Type 1814.36 8 F Prematur [place] 92198 Vaginal Dimitry Calculation Initial Dimitry Date Initial Exam Date Initial Exam Provider Initial Ultrasound Date Last Menstrual Period Date Ultra Sound Weeks Gestation 0 Eighteen To Twenty Week Dimitry Update Ultra Sound Date Fundal Height At Umbil Quickening Date Ultra Sound Latest Weeks Gestation Final Dimitry Confirmed By Final Dimitry Confirmed Date Final Dimitry Date Ultra Sound Latest Days Gestation 0 0 Menstrual History Last Menstrual Date Menses Monthly On Bcp Conception Prior Menses Frequency Hcg Plus Date Menarche Onset Age Delivery Information Delivery Date Delivery Type Labor Anesthesia Weeks Gestation Incision Type Labor Labor Length Hrs Delivered By Post Complications Tubal Sterilization Discharge Date Comments 4 [facility] Discharge Information Feeding Method Contraceptive Method Maternal HG B and HCT Levels Ob Episode Information Episode Created Date Number of Fetuses Patient Bloodtype Patient rh Status Prepregnancy Weight lbs Domestic Partner Domestic Partner Phone Father Name Parachute Folder Status 09/09/19 17 1 CLOSED Fetus Data First Name Last Name Admitted to NICU Weight (g) Sex Living Outcome Pediatric Complications Fetus ID Race Codes Race Delivery Type 2721.55 2 F [place]atur [place] [address]8614 Dimitry Calculation Initial Dimitry Date Initial Exam Date Initial Exam Provider Initial Ultrasound Date Last Menstrual Period Date Ultra Sound Weeks Gestation 0 Eighteen To Twenty Week Dimitry Update Ultra Sound Date Fundal Height At Umbil Quickening Date Ultra Sound Latest Weeks Gestation Final Dimitry Confirmed By Final Dimitry Confirmed Date Final Dimitry Date Ultra Sound Latest Days Gestation 0 0 Menstrual History Last Menstrual Date Menses Monthly On Bcp Conception Prior Menses Frequency Hcg Plus Date Menarche Onset Age Delivery Information Delivery Date Delivery Type Labor Anesthesia Weeks Gestation Incision Type Labor Labor Length Hrs Delivered By Post Complications Tubal Sterilization Discharge Date Comments 2 [facility] 36 Baby d Discharge Information Feeding Method Contraceptive Method Maternal HG B and HCT Levels Ob Episode Information Episode Created Date Number of Fetuses Patient Bloodtype Patient rh Status Prepregnancy Weight lbs Domestic Partner Domestic Partner Phone Father Name Parachute Folder Status 09/09/19 17 1 CLOSED Fetus Data First Name Last Name Admitted to NICU Weight (g) Sex Living Outcome Pediatric Complications Fetus ID Race Codes Race Delivery Type 1360.77 6 F Prematur e 87814 Vaginal Dimitry Calculation Initial Dimitry Date Initial Exam Date Initial Exam Provider Initial Ultrasound Date Last Menstrual Period Date Ultra Sound Weeks Gestation 0 Eighteen To Twenty Week Dimitry Update Ultra Sound Date Fundal Height At Umbil Quickening Date Ultra Sound Latest Weeks Gestation Final Dimitry Confirmed By Final Dimitry Confirmed Date Final Dimitry Date Ultra Sound Latest Days Gestation 0 0 Menstrual History Last Menstrual Date Menses Monthly On Bcp Conception Prior Menses Frequency Hcg Plus Date Menarche Onset Age Delivery Information Delivery Date Delivery Type Labor Anesthesia Weeks Gestation Incision Type Labor Labor Length Hrs Delivered By Post Complications Tubal Sterilization Discharge Date Comments 3 None Discharge Information Feeding Method Contraceptive Method Maternal HG B and HCT Levels Ob Episode Information Episode Created Date Number of Fetuses Patient Bloodtype Patient rh Status Prepregnancy Weight lbs Domestic Partner Domestic Partner Phone Father Name Parachute Folder Status 09/09/19 17 1 CLOSED Fetus Data First Name Last Name Admitted to NICU Weight (g) Sex Living Outcome Pediatric Complications Fetus ID Race Codes Race Delivery Type 2721.55 2 M Full Term 72801 Vaginal Dimitry Calculation Initial Dimitry Date Initial Exam Date Initial Exam Provider Initial Ultrasound Date Last Menstrual Period Date Ultra Sound Weeks Gestation 0 Eighteen To Twenty Week Dimitry Update Ultra Sound Date Fundal Height At Umbil Quickening Date Ultra Sound Latest Weeks Gestation Final Dimitry Confirmed By Final Dimitry Confirmed Date Final Dimitry Date Ultra Sound Latest Days Gestation 0 0 Menstrual History Last Menstrual Date Menses Monthly On Bcp Conception Prior Menses Frequency Hcg Plus Date Menarche Onset Age Delivery Information Delivery Date Delivery Type Labor Anesthesia Weeks Gestation Incision Type Labor Labor Length Hrs Delivered By Post Complications Tubal Sterilization Discharge Date Comments 8 None 37 false Baby was born in [place], [place] Discharge Information Feeding Method Contraceptive Method Maternal HG B and HCT Levels
--- OUTSIDE RECORDS SUMMARY | 2025-07-09 13:28 | XMS_ITS | Continuity of Care Document ---
Author Organization [facility] Address [address] [place] [address] Care Team Providers Care Tactical/Mobile Watch Officer Name Role Phone LUCY RUELAS Cap Coverer Unavailable RENEA FLORENTINO Primary Care Provider THUAN GOMEZ Soapstoner Assessment Encounter Date Assessment Date Assessment LastModified by Organization Details LastModified Time 05/21/2025 05/21/2025 CBC CMP lipid A1 c he says her blood pressure is up because of inconsistencies taking her medicine take the medicines consistently see me back in 3 months get blood pressure check in a week or 2 [email or web address] Not available 05/25/2025 19:47:28 Plan of Treatment Reminders Order Date Submit Date Provider Last Modified By Organization Details Last Modified Time Details Appointments ANY 15 2025 01:00P M Renea Florentino MD Not available Not available Not available Lab albumin/ creatini ne, mass ratio, urine 2024 025 ADRIANA Lablos, [address], [place], [address], 05/22/2025 15:12:50 HbA1c (hemoglo bin A1c), blood 2024 025 ADRIANA Chen, [address], [place], [address], 05/22/2025 15:12:52 CBC w/ auto diff 2024 025 ADRIANA Chen, [address], [place], [address], 05/22/2025 15:12:53 lipid panel, serum 2024 025 ADRIANA [facility], [address], [place], [address], 05/22/2025 15:12:51 CMP, serum or plasma 2024 025 ADRIANA [facility], [address], [place], [address], 05/22/2025 15:12:52 Referral None recorded . Procedures None recorded . Surgeries None recorded . Imaging None recorded . Medication Orders None recorded . Patient TargetsNo targets recorded. Patient Instructions Encounter Date Encounter Id Patient Instructions Last Modified By Organization Details Last Modified Time 05/21/2025 [id number] A healthy lifestyle: care instructions [email or web address] Not available 05/21/2025 21:28:56 Reason for Referral None Reported. Results Created Date Observation Date Name Description Value Unit Range Abnormal Flag Note LastModifiedBy Organization Detail LastModifiedTime 05/21/2005/22/2025 ALBUM IN/CR EATIN INE RATIO ,URIN E creatinine, urine 119.3 mg/dL notest ab. Not Available [facility] ([facility]) [address] [place], [address], 05/22/2025 15:12:50 05/21/20 25 05/22/2025 ALBUM IN/CR EATIN INE RATIO ,URIN E albumin, urine 55.2 ug/mL notest ab. Not Available [facility] ([facility]) [address] [place], [address], 05/22/2025 15:12:50 05/21/20 25 05/22/2025 ALBUM IN/CR EATIN INE RATIO ,URIN E alb/creat ratio 46 mg/g_ creat 0-29 above high normal Arielle l: 0 - 29 Moder ately incre ased: 30 - 300 Sever candace incre ased: >300 Not Available [facility] ([facility]) [address] [place], [address], 05/22/2025 15:12:50 05/21/20 25 05/22/2025 LIPID PANEL cholesterol, total 224 mg/dL 100-19 9 above high normal Not Available [facility] ([facility]) [address] [place], [address], 05/22/2025 15:12:51 05/21/20 25 05/22/2025 LIPID PANEL triglyceride s 134 mg/dL 0-149 Not Available [facility] ([facility]) [address] [place], [address], 05/22/2025 15:12:51 05/21/20 25 05/22/2025 LIPID PANEL HDL cholesterol 48 mg/dL >39 Not Available [facility] ([facility]) [address] [place], [address], 05/22/2025 15:12:51 05/21/20 25 05/22/2025 LIPID PANEL VLDL cholesterol pennie 24 mg/dL 5-40 Not Available [facility] ([facility]) [address] [place], [address], 05/22/2025 15:12:51 05/21/20 25 05/22/2025 LIPID PANEL LDL chol calc ([facility]) 152 mg/dL 0-99 above high normal Not Available [facility] ([facility]) [address] [place], [address], 05/22/2025 15:12:51 05/21/20 25 05/21/2025 COMP. METAB [...] at [email or web address] org. Not Available [facility] ([facility]) [address] [place], [address], 05/22/2025 15:12:52 05/21/20 25 05/22/2025 COMP. METAB OLIC PANEL (14) glucose 460 mg/dL 70-99 above high normal Not Available [facility] ([facility]) [address] [place], [address], 05/22/2025 15:12:52 05/21/20 25 05/22/2025 COMP. METAB OLIC PANEL (14) BUN 13 mg/dL 8-27 Not Available [facility] ([facility]) [address] [place], [address], 05/22/2025 15:12:52 05/21/20 25 05/22/2025 COMP. METAB OLIC PANEL (14) creatinine 0.95 mg/dL 0.57-1 .00 Not Available [facility] ([facility]) [address] [place], [address], 05/22/2025 15:12:52 05/21/20 25 05/22/2025 COMP. METAB OLIC PANEL (14) eGFR 66 mL/mi n/1.7 3 >59 Not Available [facility] ([facility]) [address] [place], [address], 05/22/2025 15:12:52 05/21/20 25 05/22/2025 COMP. METAB OLIC PANEL (14) BUN/creatini ne ratio 14 12-28 Not Available [facility] ([facility]) [address] [place], [address], 05/22/2025 15:12:52 05/21/20 25 05/22/2025 COMP. METAB OLIC PANEL (14) sodium 136 mmol/ L 134-14 4 Not Available [facility] ([facility]) [address], [place], [address], 05/22/2025 15:12:52 05/21/20 25 05/22/2025 COMP. METAB OLIC PANEL (14) potassium 4.1 mmol/ L 3.5-5. 2 Not Available [facility] ([facility]) [address] [place], [address], 05/22/2025 15:12:52 05/21/20 25 05/22/2025 COMP. METAB OLIC PANEL (14) chloride 98 mmol/ L 96-106 Not Available [facility] ([facility]) [address], [place], [address], 05/22/2025 15:12:52 05/21/20 25 05/22/2025 COMP. METAB OLIC PANEL (14) carbon dioxide, total 24 mmol/ L 20-29 Not Available [facility] ([facility]) [address], [place], [address], 05/22/2025 15:12:52 05/21/20 25 05/22/2025 COMP. METAB OLIC PANEL (14) calcium 9.0 mg/dL 8.7-10 .3 Not Available [facility] ([facility] [facility]) [address] [place], [address], 05/22/2025 15:12:52 05/21/20 25 05/22/2025 COMP. METAB OLIC PANEL (14) protein, total 6.7 g/dL 6.0-8. 5 Not Available [facility] ([facility] [address] [facility] [place], [address], 05/22/2025 15:12:52 05/21/20 25 05/22/2025 COMP. METAB OLIC PANEL (14) albumin 4.2 g/dL 3.9-4. 9 Not Available [facility] ([facility]) [address] [facility], [address], 05/22/2025 15:12:52 05/21/20 25 05/22/2025 COMP. METAB OLIC PANEL (14) globulin, total 2.5 g/dL 1.5-4. 5 Not Available [facility] ([facility]) [address] [facility], [place], [address], 05/22/2025 15:12:52 05/21/20 25 05/22/2025 COMP. METAB OLIC PANEL (14) bilirubin, total 0.5 mg/dL 0.0-1. 2 Not Available [facility] ([facility]) [address] [facility], [address], 05/22/2025 15:12:52 05/21/20 25 05/22/2025 COMP. METAB OLIC PANEL (14) alkaline phosphatase 92 IU/L 49-135 Not Available [facility] ([facility]) [address] [place], [address], 05/22/2025 15:12:52 05/21/20 25 05/22/2025 COMP. METAB OLIC PANEL (14) AST (SGOT) 18 IU/L 0-40 Not Available [facility] ([facility]) [address] [place], [address], 05/22/2025 15:12:52 05/21/20 25 05/22/2025 COMP. METAB OLIC PANEL (14) ALT (SGPT) 21 IU/L 0-32 Not Available [facility] ([facility]) [address] [place], [address], 05/22/2025 15:12:52 05/21/20 25 05/22/2025 HEMOG LOBIN A1C hemoglobin A1C 11.4 % 4.8-5. 6 above high normal Predi abete s: 5.7 - 6.4 Diabe shannon: >6.4 Glyce katharine contr ol for adult s with diabe shannon: <7.0 Not Available [facility] ([facility]) [address] [place], [address], 05/22/2025 15:12:52 05/21/20 25 05/22/2025 CBC WITH DIFFE RENTI AL/PL ATELE T WBC 6.7 x10e3 /uL 3.4-10 .8 Not Available [facility] ([facility]) [address] [place], [address], 05/22/2025 15:12:53 05/21/20 25 05/22/2025 CBC WITH DIFFE RENTI AL/PL ATELE T RBC 4.85 x10e6 /uL 3.77-5 .28 Not Available [facility] ([facility]) [address] [place], [address], 05/22/2025 15:12:53 05/21/20 25 05/22/2025 CBC WITH DIFFE RENTI AL/PL ATELE T hemoglobin 14.1 g/dL 11.1-1 5.9 Not Available [facility] ([facility]) [address] [place], [address], 05/22/2025 15:12:53 05/21/20 25 05/22/2025 CBC WITH DIFFE RENTI AL/PL ATELE T hematocrit 44.2 % 34.0-4 6.6 Not Available [facility] ([facility]) [address] [place], [address], 05/22/2025 15:12:53 05/21/20 25 05/22/2025 CBC WITH DIFFE RENTI AL/PL ATELE T MCV 91 fL 79-97 Not Available [facility] ([facility]) [address] [place], [address], 05/22/2025 15:12:53 05/21/20 25 05/22/2025 CBC WITH DIFFE RENTI AL/PL ATELE T MCH 29.1 pg 26.6-3 3.0 Not Available [facility] ([facility]) [address] [facility], [place], [address], 05/22/2025 15:12:53 05/21/20 25 05/22/2025 CBC WITH DIFFE RENTI AL/PL ATELE T MCHC 31.9 g/dL 31.5-3 5.7 Not Available [facility] ([facility]) [address] [facility], [place], [address], 05/22/2025 15:12:53 05/21/20 25 05/22/2025 CBC WITH DIFFE RENTI AL/PL ATELE T RDW 12.0 % 11.7-1 5.4 Not Available [facility] ([facility]) [address] [facility], [place], [address], 05/22/2025 15:12:53 05/21/20 25 05/22/2025 CBC WITH DIFFE RENTI AL/PL ATELE T platelets 263 x10e3 /uL 150-45 0 Not Available [facility] ([facility]) [address] [facility], [place], [address], 05/22/2025 15:12:53 05/21/20 25 05/22/2025 CBC WITH DIFFE RENTI AL/PL ATELE T neutrophils 52 % notest ab. Not Available [facility] ([facility]) [address] [facility], [place], [address], 05/22/2025 15:12:53 05/21/20 25 05/22/2025 CBC WITH DIFFE RENTI AL/PL ATELE T lymphs 36 % notest ab. Not Available [facility] ([facility]) [address] [place], [address], 05/22/2025 15:12:53 05/21/20 25 05/22/2025 CBC WITH DIFFE RENTI AL/PL ATELE T monocytes 9 % notest ab. Not Available [facility] ([facility]) [address] [facility], [place], [address], 05/22/2025 15:12:53 05/21/20 25 05/22/2025 CBC WITH DIFFE RENTI AL/PL ATELE T eos 2 % notest ab. Not Available [facility] ([facility]) [address] [facility], [place], [address], 05/22/2025 15:12:53 05/21/20 25 05/22/2025 CBC WITH DIFFE RENTI AL/PL ATELE T basos 1 % notest ab. Not Available [facility] ([facility]) [address] [facility], [place], [address], 05/22/2025 15:12:53 05/21/20 25 05/22/2025 CBC WITH DIFFE RENTI AL/PL ATELE T neutrophils (absolute) 3.5 x10e3 /uL 1.4-7. 0 Not Available [facility] ([facility]) [address] [facility], [place], [address], 05/22/2025 15:12:53 05/21/20 25 05/22/2025 CBC WITH DIFFE RENTI AL/PL ATELE T lymphs (absolute) 2.4 x10e3 /uL 0.7-3. 1 Not Available [facility] ([facility]) [address] [facility], [place], [address], 05/22/2025 15:12:53 05/21/20 25 05/22/2025 CBC WITH DIFFE RENTI AL/PL ATELE T monocytes(ab solute) 0.6 x10e3 /uL 0.1-0. 9 Not Available [facility] ([facility]) [address] [facility], [place], [address], 05/22/2025 15:12:53 05/21/20 25 05/22/2025 CBC WITH DIFFE RENTI AL/PL ATELE T eos (absolute) 0.1 x10e3 /uL 0.0-0. 4 Not Available [facility] ([facility]) [address] [place], [address], 05/22/2025 15:12:53 05/21/20 25 05/22/2025 CBC WITH DIFFE RENTI AL/PL ATELE T baso (absolute) 0.1 x10e3 /uL 0.0-0. 2 Not Available [facility] ([facility]) [address] [place], [address], 05/22/2025 15:12:53 05/21/20 25 05/22/2025 CBC WITH DIFFE RENTI AL/PL ATELE T immature granulocytes 0 % notest ab. Not Available [facility] ([facility]) [address] [facility], [place], [address], 05/22/2025 15:12:53 05/21/20 25 05/22/2025 CBC WITH DIFFE RENTI AL/PL ATELE T immature grans (abs) 0.0 x10e3 /uL 0.0-0. 1 Not Available [facility] ([facility]) [address] [place] [address], [address], 05/22/2025 15:12:53 05/21/2005/21/2025 elect romyo gram + nerve condu ction study No observ ation record ed. [address], [place], [address], 06/02/2025 12:29:48 Result Notes None recorded. Problems Name Problem SNOMED Code Status Onset Date Resolution Date Notes Provider Name and Address Organization Details Recorded Time Carpal tunnel syndrome 72081461 Active Not Available [facility] 3 08:24:26 Glucose level outside reference range 499246594 Active Not Available [facility] 3 08:24:25 Essential hypertension 83777942 Active Not Available [facility] 3 08:24:26 Hyperlipidemi a 15830714 Active Not Available [facility] 3 08:24:26 Gastroesophag eal reflux disease 253253873 Active Not Available [facility] 3 08:24:25 Acute bronchitis 33106858 Active Not Available [facility] 3 08:24:25 Osteoarthriti s of knee 456867483 Active Not Available [facility] 3 08:24:26 Mammography abnormal 419993534 Active Not Available [facility] 3 08:24:25 Candidiasis of skin 69441805 Active Not Available [facility] 3 08:24:26 Contusion of multiple sites 983863753 Active Not Available [facility] 3 08:24:25 Type 2 diabetes mellitus 19069297 Active 2018 Not Available [facility] 3 08:24:26 Problem Notes None recorded. Procedures Surgical History Date Name Laterality Status Provider Name and Address Organization Details Recorded Time 12/20/19 24 Date of Last Mammogram completed Jenn Blanca MA [facility] 01/29/2024 12:23:56 11/16/19 23 Date of Last Pap Smear completed Jenn Blanca MA [facility] 11/15/2022 15:03:41 10/19/19 18 Elbow arthroscopy/susan jeanie completed MERRY Guy [facility] 10/24/2017 15:28:22 07/17/19 07 Endometrial Ablation completed Dory Vicente MA [facility] 10/24/2017 15:20:20 10/09/18 94 Caesarean Section completed Dory Vicente MA [facility] 10/24/2017 15:21:08 04/01/19 92 Caesarean Section completed Dory Vicente MA [facility] 10/24/2017 15:20:58 Dilation and Curettage completed Harshil Reyes [facility] 06/25/2014 15:53:55 Other completed Harshil Reyes [place] - [facility] 06/25/2014 15:53:55 procedure on foot completed Shira Barnhart [place] [facility] 11/21/2023 14:11:27 Imaging Results None recorded. Procedure Notes None recorded. Medical Equipment None Reported. Allergies Allergen ID Allergen Name Allergen Category Reaction Reaction Severity Criticality Documentation Date Start Date Code Code System Note Provider Name and Address Organization Details Recorded Time 813142 latex environme nt,medica tion itching rash Not available Not available Not available 10/24/2017 83854 91 RxNorm Dory VicenteMERRY, [place] - [facility] 8 15:17:27 189490 Claritin medicatio n dizziness headache moderate moderate Not available 10/24/2017 57795 6 RxNorm Dory VicenteMERRY, [place] - [facility] 8 15:17:47 272882 Clarinex medicatio n dizziness Not available Not available 05/14/2025 77586 2 RxNorm Not Available adriana - External Data Service - prod 15:26:50 255390 deslorata dine medicatio n Not available Not available Not available 05/21/2025 66080 5 RxNorm unrec ogniz ed react ion (text : Adver se react ion to subst ance, code: 76348 0009) , sever e (from exter nal sourc e) MERRY [place], [place] - [facility] 5 14:14:30 815295 loratadin e medicatio n dizziness headache Not available Not available [facility] 05/29/20252018 20828 RxNorm Not Available adriana - External Data Service - prod 5 15:39:19 345648 naproxen medicatio n Not available Not available [facility] 05/29/20252015 7258 RxNorm unrec ogniz ed react ion (text : Skin React ions, code: 96241 8006) (from exter nal sourc e) Not Available adriana - External Data Service - prod 5 15:39:19 7696 Aleve medicatio n Not available Not available Not available 06/25/2014 83966 1 RxNorm Up set stoma ch MERRY [place], [place] - [facility] 7 15:32:35 7697 Product containin g penicilli n (product) medicatio n facial swelling moderate Not available 06/25/2014 78764 8001 SNOMED Negrita Reyes null, [place] - [facility] 4 15:53:55 7698 Cipro medicatio n Not available Not available Not available 06/25/201471296 3 RxNorm Dai Benz [place] null, [place] - [facility] 7 15:33:22 Medications Name Sig Start Date [...] promethazi ne 25 mg tablet TAKE 1/2 (ONE-EDAURDO F) TABLET BY MOUTH EVERY 6 HOURS [...] Updated DateTime 5 160.02 cm 39.1 kg/m2 894021. 2 g 81 /min 96 % 182/102 mm[Hg] 158/80 mm[Hg] Rosa Piña MA [facility] 5 14:48:51 Social History Question Answer Notes LastModified by Organizat ion Details LastModified Time Tobacco Smoking Status Never Smoker Harshil Reyes [facility] 06/25/2014 15:53:55 Do You Have An Advance [...] COVID-19 While That Case Was Ill? No [email or web address] Information not available 11/21/2023 In The 14 [...] Or The Highest Degree You Have Received? LC79299-4 Information not available 08/16/2023 Live Alone Or With Others? With Others Information not available 09/01/2014 What Was The Date Of Your Most Recent Tobacco Screening? 05/21/2025 [email or web address] Information not available 05/21/2025 How Many Children Do You Have? 9+ 11 [email or web address] Information not available 10/24/2017 Performs Monthly Self-breast [...] How Much Tobacco Do You Smoke? No [email or web address] Information not available 10/24/2017 General Stress Level Medium Information not available 09/01/2014 Do You Use Sunscreen Routinely? No Information not available 09/01/2014 Has Tobacco Cessation Counseling Been Provided? Yes Information not available 11/15/2022 On What Date Was Tobacco Cessation Counseling Provided? 10/16/2024 Information not available 10/16/2024 How Many Years Have You Smoked Tobacco? 0 Information not available 10/24/2017 Sex: Female Functional [...] anxious, or unable to sleep at night)? [id number] Information not available 08/16/2023 Family History Relationship Description Onset Age of this Age Resolved Age Notes LastModified by Organization Details LastModified Time Mother Hypercholest erolemia [email or web address] Not available 09/01 16:18:48 Mother Malignant neoplasm of ovary [email or web address] Not available 09/01 16:18:48 Medical History Condition Response Other N High Blood Pressure Y Breast Cancer N Thyroid Problems N Kidney or Bladder Problems N Lung Disease N Depression N Blood Clots N GI Problems N Acne N Have you had a mammogram in the last yea r? Y Breast Problem N Eating Disorder N Anemia N Anesthesia Complications N Headaches/Migraines N Ovarian Cancer N Diabetes N Anxiety Disorder N Muscle, Joint, or Bone Problems Y Blood Transfusions N Seizures/Epilepsy N Polyps N Infertility N Acid Reflux (GERD) N Cancer N Abuse/Domestic Violence N Allergies Y Asthma N Endometriosis N High Cholesterol Y Hepatitis N [...] mcg/0.3 mL dose 1 completed Not Available [facility]ending sale to [facility] 08/01/2023 00:07:31 COVID-19, mRNA, LNP-S, PF, 30 mcg/0.3 mL dose 1 completed Not Available [facility] 08/01/2023 00:07:31 Influenza, split virus, quadrivalent, preservative 2 completed Ezequiel Barron [place], [place] [facility] 08/03/2021 11:02:21 COVID-19, mRNA, LNP-S, PF, 30 mcg/0.3 mL dose 2 completed Whit Mendoza [place], [place] [facility] 08/03/2021 12:12:41 Past Encounters Encounter ID Performer Location Encounter Start Date Encounter Closed Date Diagnosis/Indication Diagnosis SNOMED-CT Code Diagnosis ICD10 Code Diagnosis IMO Codes Diagnosis Note [id number] Renea Florentino MD [facility] ([facility]ult [facility]) [address] [place] [phone] 05/21/2025 14:04:33 05/21/2025 16:26:35 Obese class II 8150465761 20024 E66.812 E66.3 3285402791 Essential hypertension 68122441 I10 Hyperlipidemia 78640274 E78.5 Type 2 beatriz betes mellitus 78463624 E11.9 Gastroesop hageal reflux disease 750672477 K21.9 Health Concerns Section Related Observation LastModified by Organization Detai ls LastModified Time None Recorded Concern Status LastModified by Organization Details LastModified Time None Recorded Payers Encounter Date Sequence Insurance Name Policy Number Policy Greenberg Covered Member ID Greenberg Member ID Guarantor Name 05/21/2025 1 [facility] (MEDICAID HMO) [id number] Nichol Guaman [id number] Nichol Badillo Guaman Notes Date Note Type Note Provider Name and Address Organization Details Recorded Time 05/21/2025 text/html Blood sugars not doing well but no polyphagia polydipsia. GERD no nausea vomiting. Dyslipidemia diet is poor hypertension blood pressure initially was high let her sit for about 15 minutes and did come down but it is not optimized Renea Florentino MD Attn: Accounting[address] [facility], [place], [address], [facility] 05/25/2025 19:48:06 OBGyn Episode No OBEpisode recorded.
--- OUTSIDE RECORDS SUMMARY | 2025-07-09 13:28 | XMS_ITS | Continuity of Care Document ---
Author Organization [place] [facility], [facility] Pod[facility] [place] Address [address] [place] [address] Care Team Providers Care Director Of Programming Name Role Phone RENEA BLANTON Primary Care Provider RENEA BLANTON Referring Provider [phone] Assessment Encounter Date Assessment Date Assessment LastModified by Organization Details LastModified Time 05/20/2025 05/20/2025 This note is dictated and transcribed by [employer]. [employer]ch[employer]ising [employer] variances may occur. Despite proofreading, typographical errors may occur. Occasional wrong-word or 'rhbvw-o-racn' substitutions may have occurred due to the inherent limitations of voice recording. Read the chart carefully and recognize, using context, where substitutions have occurred. [email or web address] Not available 05/20/2025 16:17:26 Plan of Treatment Reminders Order Date Submit Date Provider Last Modified By Organization Details Last Modified Time Details Appointments Establish ed Patient 10 2025 03:20P Irlanda Owens DPM Not available Not available Not available Lab None recorded. Referral None recorded. Procedures None recorded. Surgeries None recorded. Imaging MRI, ankle, w/o contrast - PLEASE CALL PT TO SCHEDULE AN APPT....T TARA YOU!!! 2024 025 [facility], [address] [place] [address]-[facility], [place], [address], 07/05/2025 04:01:33 Medication Orders None recorded. Patient TargetsNo targets recorded. Patient InstructionsNo instructions recorded. Reason for Referral None Reported. Results Created Date Observation Date Name Description Value Unit Range Abnormal Flag Note LastModifiedBy Organization Detail LastModifiedTime 05/12/20 25 XR, ankle , 3 or more view No observ ation record ed. [email or web address] [facility] [place] [address], [place], [address], 05/12/2025 10:27:47 05/29/20 25 05/21/2025 elect romyo gram + nerve condu ction study No observ ation record ed. [email or web address] Not Available 05/29 11:35:43 Result Notes None recorded. Problems Name Problem SNOMED Code Status Onset Date Resolution Date Notes Provider Name and Address Organization Details Recorded Time Disorder of shoulder 264220399 Active Not Available [facility] 3 02:45:22 Localized, primary osteoarthr itis of the shoulder region 487712793 Active Not Available [facility] 3 02:45:23 Pain of joint of wrist 006652898 Active Not Available [facility] 3 02:45:23 Partial thickness rotator cuff tear 075343684 Active Not Available [facility] 3 02:45:23 Plantar fasciitis 732265410 Active Not Available [facility] 3 02:45:23 Ankle pain 604446346 Active Not Available [facility] 3 02:45:23 Shoulder joint pain 255007278 Active Not Available [facility] 3 02:45:24 Low back pain 890653255 Active Not Available [facility] 3 02:45:24 Lesion of ulnar nerve 054567983 Active Not Available [facility] 3 02:45:24 Osteoarthr itis 251613249 Active Not Available [facility] 3 02:45:24 Lesion of median nerve 026635419 Active Not Available [facility] 3 02:45:24 Carpal tunnel syndrome 26146845 Active Not Available [facility] 3 02:45:24 Fracture of forearm 83074813 Active Not Available [facility] 3 02:45:25 Postoperat rosamaria visit 707545018 Active 2018 Not Available [facility] 3 02:45:23 Tibialis posterior tendinitis 555214385 Active 2019 Not Available [facility] 3 02:45:23 Diabetes mellitus 73707699 Active 2019 Not Available [facility] 3 02:45:25 Type 2 diabetes mellitus without complicati on 866530698 Active 2020 Not Available [facility] 3 02:45:24 Exostosis of left foot 3787009900981 9100 Active 2020 Not Available [facility] 3 02:45:23 Pain in left foot 7038302777237 07 Active 2020 Not Available [facility] 3 02:45:24 Edema of bone marrow 0444414013788 Active 2020 Not Available [facility] 3 02:45:25 Capsulitis 1475712 Active 2021 Not Available [facility] 3 02:45:25 Sprain of lateral ligament of ankle joint 162626445 Active 2021 Not Available [facility] 3 02:45:23 Pain of right ankle joint 8071919580221 9106 Active 2021 Not Available [facility] 3 02:45:23 Peroneal tendinitis of right lower limb 1909640416018 09 Active 2022 Benjamin Owens DPM [address], [place], [address] , [employer] [facility] [employer] 3 17:52:09 Bone cyst of right foot 8786788464319 102 Active 2022 Benjamin Owens DPM [address], [place], [address] , [place] [facility] 3 09:31:55 Ganglion cyst of left foot 0133525348506 103 Active 2022 Benjamin Owens DPM [address], [place], [address] , [place] [facility] 3 15:02:16 Plantar fasciitis of left foot 3033602793837 9101 Active 2022 Benjamin Owens DPM [address], [place], [address] , [facility] 3 17:08:59 Ankle pain 345685175 Active 2022 Benjamin Owens DPM [address], [place], [address] , [facility] 3 09:42:47 Bone spur of left ankle 7651871977937 04 Active 2022 Benjamin Owens DPM [address], [place], [address] , [facility] 3 09:43:01 Pain of left knee joint 5007200768322 07 Active 2023 SLIM Contreras null, [place] [facility] 4 12:46:56 Postoperat rosamaria care Active 2023 Benjamin Owens DPM [address], [place], [address] , [facility] 4 14:26:57 Foot callus 497280141 Active 2023 Benjamin Owens DPM [address], [address], [place], [address] , [facility] 4 16:55:17 Arthritis 4523279 Active 2023 Candice wilkes, [place] [facility] 4 11:04:30 Ear problem 396837775 Active 2023 Candice wilkes, [place] [facility] 4 11:04:51 Hyperchole sterolemia 19201141 Active 2023 Candice wilkes, [place] [facility] 4 11:05:08 Pain of right knee joint 1447394183470 00 Active 2023 FRED Reyes null, [facility] 5 12:22:26 Pain of left wrist 4606447837569 02 Active 2023 FRED Reyes, [place] [facility] 4 15:08:58 Pain of left forearm 7179368544008 09 Active 2023 FRED Reyes, [place] [facility] 4 15:09:38 Pain of right heel 2866713547844 105 Active 2023 Benjamin Owens DPM [address], [place], [address] , [facility] 4 15:18:42 Pain of left ankle joint 4592771356747 9103 Active 2023 Benjamin Owens DPM [address], [place], [address] , [facility] 4 15:18:58 Tendinitis of foot 648458513 Active 2023 Benjamin Owens DPM [address], [place], [address] , [facility] 4 15:19:14 Osteoarthr itis of right knee joint 6035877975882 00 Active 2024 FRED Reyes, [place] [facility] 5 11:35:37 Pain of toe of right foot 5406261626299 01 Active 2024 Benjamin Owens DPM [address], [place], [address] , [facility] 5 15:47:09 Pain of elbow region 89815128 Active 2024 FRED Reyes, [place] [facility] 5 10:27:31 Acute ankle pain 1535807355290 5 Active 2024 Benjamin Owens DPM [address], [place], [address] , [facility] [place] [facility] 10:26:01 Spur of ankle bone 0269332481383 4108 Active 2024 Benjamin Owens DPM [address], [place], [address] , [employer] [facility] [employer] 10:26:12 Osteochond ral defect of talus 271002014 Active 2024 Benjamin Owens DPM [address], [place], [address] , [employer] [facility] [employer] 16:17:33 Left Achilles tendinitis 1759155951412 02 Active 2024 Benjamin Owens DPM [address], [place], [address] , [employer] [facility] [employer] 16:20:19 Problem Notes None recorded. Procedures Surgical History Date Name Laterality Status Provider Name and Address Organization Details Recorded Time 04/24/20 25 Joint Injection-Podiatr y completed Benjamin Owens DPM [address], [place], [address], [employer] 04/24/2025 15:31:31 12/27/19 25 Plantar Fascia Injection Right Foot completed Benjamin Owens DPM [address], [place], [address], [employer] [employer] 12/26/2024 14:36:33 11/02/19 24 Callus Debridement, One completed Benjamin Owens DPM [address], [place], [address], [employer] [facility] [employer] 11/02/2023 16:55:10 Carpal tunnel surgery completed Aby Lea [facility] [employer] 07/31/2023 12:00:53 decompression of ulnar nerve at elbow completed Aby Lea [place] [facility] [employer] [employer] 07/31/2023 12:00:59 Foot Surgery completed Aby Lea [facility] [employer] [employer] 07/31/2023 12:01:09 delivery completed Ute Lynn [place] [facility] [place] [facility] 02/14/2024 11:06:49 Imaging Results None recorded. Procedure Notes None recorded. Medical Equipment None Reported. Allergies Allergen ID Allergen Name Allergen Category Reaction Reaction Severity Criticality Documentation Date Start Date Code Code System Note Provider Name and Address Organization Details Recorded Time 3931 Product containin g penicilli n (product) medicatio n itching Not available Not available 09/14/2022 51512 8001 SNOMED Not Available [facility] 3 02:51:39 3932 latex environme nt,medica tion rash Not available Not available 09/14/2022 59278 91 RxNorm Not Available [facility] 3 02:51:39 3933 Clarinex medicatio n dizziness Not available Not available 09/14/2022 89034 2 RxNorm Not Available [facility] 3 02:51:39 3934 Aleve medicatio n Not available Not available Not available 09/14/2022 01752 1 RxNorm GI distr ess Not Available [facility] 3 02:51:39 72848 loratadin e medicatio n dizziness headache Not available Not available [facility] 05/30/20252018 16687 RxNorm Not Available [employer] - prod 5 08:39:50 70608 naproxen medicatio n Not available Not available [facility] 05/30/20252015 7258 RxNorm unrec ogniz ed react ion (text : Skin React ions, code: 76931 [id number]) (from [facility] e) Not Available [employer] - prod 5 08:39:50 25665 Claritin medicatio n dizziness headache moderate moderate Not available 05/30/2025 79673 6 RxNorm Not Available [employer] prod 5 08:42:18 94577 deslorata dine medicatio n Not available Not available Not available 05/30/2025 14927 5 RxNorm Not Available [employer] - prod 5 08:42:18 Medications [...] Advocate Syringes 0.5 mL 31 gauge x 16 10/04 completed Not Available Not Available Not [...] Last Updated DateTime 157.48 cm 39.9 kg/m2 81083.1 4 g 66 /min 14 /min 98 % 191/102 mm[Hg] Renetta Irby [facility] 15:52:05 Social History Question Answer Notes LastModified by Organizat Diarize Details LastModified Time Tobacco Smoking Status Never Smoker Not Available [facility] 09/14/2022 02:34:41 What Was The Date Of Your Most Recent Tobacco Screening? 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 Obstetrics History GPAL:G 0 P 0 0 0 0 Past Encounters Encounter ID Performer Location Encounter Start Date Encounter Closed Date Diagnosis/Indication Diagnosis SNOMED-CT Code Diagnosis ICD10 Code Diagnosis IMO Codes Diagnosis Note [id number] Benjamin Owens DPM [facility] [place] [address] [place] [address] 04/24/2025 14:44:26 05/13/2025 13:51:17 Acute ankle pain 9203537533 9105 M25.572 49572898 x-rays left ankle x3 negative for acute injuryrice therapycon tinue supportive shoe gearoffloa dingfollow -up 1 month Spur of ankle bone 41592 41889 3977611 M77.50 5007432 distal lateral fibula [id number] Benjamin Owens DPM [facility] [address] [place] [address] 05/20/2025 15:30:24 05/21/2025 15:39:41 Pain of left ankle joint 0319142107 6430815 M25.572 x-rays left ankle x3 negative for acute injuryfail ed ankle injection- some relief but very short-live dfailed at-home physical therapy Osteochond ral defect of talus 741011287 M95.8 23934853 concerns for osteo chondral defect of the talusposit rosamaria clicking with range of motion of the ankle Left Achil les tendinitis 1845545692 80809 M76.62 0688403 at home 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 therapystr 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 ns dispensedr ice therapymay use topical Voltaren gel over-the-c ounterstre tching exercises reviewed with the patient and dispensedf ollow-up in 2 months Health Concerns Section Related Observation LastModified by Organization Detai ls LastModified Time None Recorded Concern Status LastModified by Organization Details LastModified Time None Recorded Payers Encounter Date Sequence Insurance Name Policy Number Policy Greenberg Covered Member ID Greenberg Member ID Guarantor Name 05/20/2025 1 [facility] (MEDICAID HMO) [id number] Nichol Guaman [id number] Nichol Guaman Notes Date Note Type Note Provider Name and Address Organization Details Recorded Time 05/20/2025 text/html . Patient is a 64-year-old [...] any other complaints. Benjamin Owens DPM [address], [place], [address], [facility] 05/20/2025 16:21:06 OBGyn Episode No OBEpisode recorded.
--- OUTSIDE RECORDS SUMMARY | 2025-07-09 13:28 | XMS_ITS | Continuity of Care Document ---
Author Organization [facility] Podiatry Shaji Moser Address [address] [place] [address] Care Team Providers Care Admin Assistant Name Role Phone RENEA BLANTON Primary Care Provider RENEA BLANTON Referring Provider Assessment Encounter Date Assessment Date Assessment LastModified by Organization Details LastModified Time 04/24/2025 04/24/2025 This note is dictated and transcribed by [employer]. Hydrographic Surveyor variances may occur. Despite proofreading, typographical errors may occur. Occasional wrong-word or 'qmhei-p-xepo' substitutions may have occurred due to the inherent limitations of voice recording. Read the chart carefully and recognize, using context, where substitutions have occurred. [email or web address] Not available 05/12/2025 10:25:51 Plan of Treatment Reminders Order Date Submit Date Provider Last Modified By Organization Details Last Modified Time Details Appointments Establish ed Patient 10 2025 03:20P Irlanda Owens DPM Not available Not available Not available Lab None recorded. Referral None recorded. Procedures None recorded. Surgeries None recorded. Imaging XR, ankle, 3 or more view 2024 025 [email or web address] [facility] [place], [address], [place], [address], 05/12/2025 10:27:49 Medication Orders None recorded. Patient TargetsNo targets recorded. Patient InstructionsNo instructions recorded. Reason for Referral None Reported. Results Created Date Observation Date Name Description Value Unit Range Abnormal Flag Note LastModifiedBy Organization Detail LastModifiedTime 05/12/20 25 XR, ankle , 3 or more view No observ ation record ed. [email or web address] [facility] [place] [address], [place], [address], 05/12/2025 10:27:47 05/29/20 25 05/21/2025 elect romyo gram + nerve condu ction study No observ ation record ed. [email or web address] Not Available 05/29 11:35:43 Result Notes None recorded. Problems Name Problem SNOMED Code Status Onset Date Resolution Date Notes Provider Name and Address Organization Details Recorded Time Disorder of shoulder 778630772 Active Not Available [facility] 3 02:45:22 Localized, primary osteoarthr itis of the shoulder region 714345224 Active Not Available [facility] 3 02:45:23 Pain of joint of wrist 622447739 Active Not Available [facility] 3 02:45:23 Partial thickness rotator cuff tear 639805300 Active Not Available [facility] 3 02:45:23 Plantar fasciitis 468751672 Active Not Available [facility] 3 02:45:23 Ankle pain 357317617 Active Not Available [facility] 3 02:45:23 Shoulder joint pain 279896089 Active Not Available [facility] 3 02:45:24 Low back pain 206177531 Active Not Available [facility] 3 02:45:24 Lesion of ulnar nerve 243695559 Active Not Available [facility] 3 02:45:24 Osteoarthr itis 628578826 Active Not Available [facility] 3 02:45:24 Lesion of median nerve 057240167 Active Not Available [facility] 3 02:45:24 Carpal tunnel syndrome 29187943 Active Not Available [facility] 3 02:45:24 Fracture of forearm 56819758 Active Not Available [facility] 3 02:45:25 Postoperat rosamaria visit 875937138 Active 2018 Not Available [facility] 3 02:45:23 Tibialis posterior tendinitis 107574419 Active 2019 Not Available [facility] 3 02:45:23 Diabetes mellitus 24064150 Active 2019 Not Available [facility] 3 02:45:25 Type 2 diabetes mellitus without complicati on 930420026 Active 2020 Not Available [facility] 3 02:45:24 Exostosis of left foot 9135851726272 9100 Active 2020 Not Available [facility] 3 02:45:23 Pain in left foot 9592535273620 07 Active 2020 Not Available [facility] 3 02:45:24 Edema of bone marrow 3003722539290 Active 2020 Not Available [facility] 3 02:45:25 Capsulitis 2549557 Active 2021 Not Available [facility] 3 02:45:25 Sprain of lateral ligament of ankle joint 076754432 Active 2021 Not Available [facility] 3 02:45:23 Pain of right ankle joint 1589996470149 9106 Active 2021 Not Available [facility] 3 02:45:23 Peroneal tendinitis of right lower limb 5784427829172 09 Active 2022 Benjamin Owens DPM [address], [place], [address] , [place] [facility] [place] [facility] 3 17:52:09 Bone cyst of right foot 6249741011883 102 Active 2022 Benjamin Owens DPM [address], [place], [address] , [place] [facility] 3 09:31:55 Ganglion cyst of left foot 4380305533262 103 Active 2022 Benjamin Owens DPM [address], [place], [address] , [place] [facility] 3 15:02:16 Plantar fasciitis of left foot 5099112777865 9101 Active 2022 Benjamin Owens DPM [address], [place], [address] , [facility] 3 17:08:59 Ankle pain 272010699 Active 2022 Benjamin Owens DPM [address], [place], [address] , [facility] 3 09:42:47 Bone spur of left ankle 7357676502572 04 Active 2022 Benjamin Owens DPM [address], [place], [address] , [facility] 3 09:43:01 Pain of left knee joint 7693340715707 07 Active 2023 SLIM Contreras null, [facility] 4 12:46:56 Postoperat rosamaria care Active 2023 Benjamin Owens DPM [address], [place], [address] , [facility] 4 14:26:57 Foot callus 662112977 Active 2023 Benjamin Owens DPM [address], [place], [address] , [facility] 4 16:55:17 Arthritis 3576147 Active 2023 Candice wilkes, [facility] 4 11:04:30 Ear problem 979420666 Active 2023 Candice wilkes, [facility] 4 11:04:51 Hyperchole sterolemia 65571108 Active 2023 Candice wilkes, [place] [facility] 4 11:05:08 Pain of right knee joint 4321923319060 00 Active 2023 FRED Reyes null, [facility] 5 12:22:26 Pain of left wrist 0422143025841 02 Active 2023 FRED Reyes, [place] [facility] [place] [facility] 4 15:08:58 Pain of left forearm 5920865540496 09 Active 2023 FRED Reyes, [place] [facility] [place] [facility] 4 15:09:38 Pain of right heel 1942384939378 105 Active 2023 Benjamin Owens DPM [address], [place], [address] , [facility] 4 15:18:42 Pain of left ankle joint 6960463630653 9103 Active 2023 Benjamin Owens DPM [address], [place], [address] , [facility] 4 15:18:58 Tendinitis of foot 695063510 Active 2023 Benjamin Owens DPM [address], [place], [address] , [facility] 4 15:19:14 Osteoarthr itis of right knee joint 7072543465455 00 Active 2024 FRED Reyes, [place] [facility] 5 11:35:37 Pain of toe of right foot 4502900463513 01 Active 2024 Benjamin Owens DPM [address], [place], [address] , [facility] 5 15:47:09 Pain of elbow region 68691441 Active 2024 FRED Reyes, [place] [facility] [place] [facility] 5 10:27:31 Acute ankle pain 8801453151419 5 Active 2024 Benjamin Owens DPM [address], [place], [address] , [facility] 10:26:01 Spur of ankle bone 0313951344213 4108 Active 2024 Benjamin Owens DPM [address], [place], [address] , [employer] [facility] 10:26:12 Osteochond ral defect of talus 103989820 Active 2024 Benjamin Owens DPM [address], [place], [address] , [employer] [facility] 16:17:33 Left Achilles tendinitis 5123280677859 02 Active 2024 Benjamin Owens DPM [address], [place], [address] , [employer] [facility] 16:20:19 Problem Notes None recorded. Procedures Surgical History Date Name Laterality Status Provider Name and Address Organization Details Recorded Time 04/24/20 25 Joint Injection-Podiatr y completed Benjamin Owens DPM [address], [place], [address], [employer] [facility] 04/24/2025 15:31:31 12/27/19 25 Plantar Fascia Injection Right Foot completed Benjamin Owens DPM [address], [place], [address], [employer] [facility] 12/26/2024 14:36:33 11/02/19 24 Callus Debridement, One completed Benjamin Owens DPM [address], [place], [address], [employer] [facility] 11/02/2023 16:55:10 Carpal tunnel surgery completed Aby Lea [place] [facility] [place] [facility] 07/31/2023 12:00:53 decompression of ulnar nerve at elbow completed Aby Lea [place] [facility] 07/31/2023 12:00:59 Foot Surgery completed Aby Lea [place] [facility] 07/31/2023 12:01:09 delivery completed Ute Lynn [employer] - [facility] 02/14/2024 11:06:49 Imaging Results None recorded. Procedure Notes None recorded. Medical Equipment None Reported. Allergies Allergen ID Allergen Name Allergen Category Reaction Reaction Severity Criticality Documentation Date Start Date Code Code System Note Provider Name and Address Organization Details Recorded Time 3931 Product containin g penicilli n (product) medicatio n itching Not available Not available 09/14/2022 83878 8001 SNOMED Not Available [facility] 3 02:51:39 3932 latex environme nt,medica tion rash Not available Not available 09/14/2022 21019 91 RxNorm Not Available [facility] 3 02:51:39 3933 Clarinex medicatio n dizziness Not available Not available 09/14/2022 00677 2 RxNorm Not Available [facility] 3 02:51:39 3934 Aleve medicatio n Not available Not available Not available 09/14/2022 41977 1 RxNorm GI distr ess Not Available [facility] 3 02:51:39 17954 loratadin e medicatio n dizziness headache Not available Not available [facility] 05/30/20252018 60673 RxNorm Not Available [employer] - prod 5 08:39:50 40447 naproxen medicatio n Not available Not available [facility] 05/30/20252015 7258 RxNorm unrec ogniz ed react ion (text : Skin React ions, code: [id number]) (from exter nal sour e) Not Available [employer] - External Data [employer] - prod 5 08:39:50 03245 Claritin medicatio n dizziness headache moderate moderate Not available 05/30/2025 31790 6 RxNorm Not Available [employer] - prod 5 08:42:18 87925 deslorata dine medicatio n Not available Not available Not available 05/30/2025 90741 5 RxNorm Not Available [employer] - prod 5 08:42:18 Medications [...] Last Updated DateTime 157.48 cm 39.9 kg/m2 96438.1 4 g 98 % 98.2 [degF] 73 /min 170/100 mm[Hg] FRED Romero [place] [facility] 14:59:46 Social History Question Answer Notes LastModified by Organizat ion Details LastModified Time Tobacco Smoking Status Never Smoker Not Available [facility] 09/14/2022 02:34:41 What Was The Date Of Your Most Recent Tobacco Screening? 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 [id number] Information not available 09/14/2022 Mental Status [...] ICD10 Code Diagnosis IMO Codes Diagnosis Note [id number] Chintan Cates MD [facility] [address], [address] [place] [address] 04/01/2025 13:50:26 04/01/2025 14:17:00 Pain of elbow region 21869890 M25.522 [id number] Benjamin Owens DPM [facility] [address] [place] [address] 04/24/2025 14:44:26 05/13/2025 13:51:17 Acute ankle pain 1767801620 9105 M25.572 49321554 x-rays left ankle x3 negative for acute injuryrice therapycon tinue supportive shoe gearoffloa dingfollow -up 1 month Spur of ankle bone 43219 37390 1729716 M77.50 9536177 distal lateral fibula Health Concerns Section Related Observation LastModified by Organization Detai ls LastModified Time None Recorded Concern Status LastModified by Organization Details LastModified Time None Recorded Payers Encounter Date Sequence Insurance Name Policy Number Policy Greenberg Covered Member ID Greenberg Member ID Guarantor Name 04/24/2025 1 [facility] (MEDICAID HMO) [id number] Nichol Guaman [id number] Nichol Guaman Notes Date Note Type Note [...] weight-bearing. Patient denies any other complaints. Benjamin Owens, [employer] [address], [place], [address], [facility] [employer] 05/12/2025 10:29:04 OBGyn Episode No OBEpisode recorded.
--- OUTSIDE RECORDS SUMMARY | 2025-07-09 13:28 | XMS_ITS | Encounter Summary ---
Author Organization [facility] Address [address] [place] [address] Care Team Providers Care Urgent Care Physician Assistant Name Role Phone Daniella Ortiz MD Primary Care Provider [phone] Encounter Details Date Type Department Care Team (Late st Contact Info) Description 09/20/2019 Telephone [facility] [address] [place] [address] Jeffrey Varghese MD [address] OF PLASTIC SURGERY [place], [place] [id number] Social History Tobacco Use Types Packs/Day Years Used Date Smoking Tobacco: Never Smokeless Tobacco: Never Alcohol Use Standard Drinks/Week Comments No 0 (1 standard drink = 0.6 oz pur e alcohol) Comments No Sex and Gender Information Value Date Recorded Sex Assigned at Not on file Legal Sex Female 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 Patient is scheduled for these procedures with Dr. Varghese on 11/11/19. Laura Nelson [phone] SUPPORT ANALYST documented in this encounter Plan of Treatment [...] on filedocumented in this encounter Care Teams Urgent Care Physician Assistant Relationship Specialty Start Date End Date Daniella Ortiz MD [address] [place] [address] PCP - General 10/26/15 documented as of this encounter
--- OUTSIDE RECORDS SUMMARY | 2025-07-09 13:28 | XMS_ITS | Continuity of Care Document ---
Author Organization [place] [facility] [place] [facility] [place] Address [address], [address] [place] [address] Care Team Providers Care Internal Grinder Set Up Operator Name Role Phone RENEA BLANTON Primary Care Provider [phone] RENEA BLANTON Referring Provider Assessment Encounter Date Assessment Date Assessment LastModified by Organization Details LastModified Time 06/02/2025 06/02/2025 64-year-old female presents for follow-up [...] Please schedule for L elbow. thanks 2024 dz7 [facility], [address] [place], [address], 06/03/2025 08:24:35 Procedures None recorded. Surgeries None recorded. Imaging None recorded. Medication Orders meloxicam 15 mg tablet [address] [facility] [address] [place], [address], 06/03/2025 08:24:35 Patient TargetsNo targets recorded. Patient [...] view No observ ation record ed. [email or web address] [facility] [place] [address], [place], [address], 05/12/2025 10:27:47 05/29/20 25 05/21/2025 elect romyo gram + nerve condu ction study No observ ation record ed. [email or web address] Not Available 05/29 11:35:43 Result Notes None recorded. Problems Name Problem SNOMED Code Status Onset Date Resolution Date Notes Provider Name and Address Organization Details Recorded Time Disorder of shoulder 906505030 Active Not Available [facility] 3 02:45:22 Localized, primary osteoarthr itis of the shoulder region 467817870 Active Not Available [facility] 3 02:45:23 Pain of joint of wrist 403972698 Active Not Available [facility] 3 02:45:23 Partial thickness rotator cuff tear 932039876 Active Not Available [facility] 3 02:45:23 Plantar fasciitis 767508890 Active Not Available [facility] 3 02:45:23 Ankle pain 807889810 Active Not Available [facility] 3 02:45:23 Shoulder joint pain 078904152 Active Not Available [facility] 3 02:45:24 Low back pain 106203377 Active Not Available [facility] 3 02:45:24 Lesion of ulnar nerve 276869411 Active Not Available [facility] 3 02:45:24 Osteoarthr itis 116196509 Active Not Available [facility] 3 02:45:24 Lesion of median nerve 968171641 Active Not Available [facility] 3 02:45:24 Carpal tunnel syndrome 44964112 Active Not Available [facility] 3 02:45:24 Fracture of forearm 73070570 Active Not Available [facility] 3 02:45:25 Postoperat rosamaria visit 960961389 Active 2018 Not Available [facility] 3 02:45:23 Tibialis posterior tendinitis 701407849 Active 2019 Not Available [facility] 3 02:45:23 Diabetes mellitus 13759950 Active 2019 Not Available [facility] 3 02:45:25 Type 2 diabetes mellitus without complicati on 523808704 Active 2020 Not Available [facility] 3 02:45:24 Exostosis of left foot 7093474621103 9100 Active 2020 Not Available [facility] 3 02:45:23 Pain in left foot 6870461173414 07 Active 2020 Not Available [facility] 3 02:45:24 Edema of bone marrow 7980636687383 Active 2020 Not Available [facility] 3 02:45:25 Capsulitis 0656479 Active 2021 Not Available [facility] 3 02:45:25 Sprain of lateral ligament of ankle joint 760978741 Active 2021 Not Available [facility] 3 02:45:23 Pain of right ankle joint 2978066040649 9106 Active 2021 Not Available [facility] 3 02:45:23 Peroneal tendinitis of right lower limb 4054875645050 09 Active 2022 Benjamin Owens DPM [address], [address], [place], [address] , [facility] 3 17:52:09 Bone cyst of right foot 7204585044938 102 Active 2022 Benjamin Owens DPM [address], [address], [place], [address] , [facility] 3 09:31:55 Ganglion cyst of left foot 8282589879247 103 Active 2022 Benjamin Owens DPM [address], [address], [place], [address] , [facility] 3 15:02:16 Plantar fasciitis of left foot 5108116471418 9101 Active 2022 Benjamin Owens DPM [address], [address], [place], [address] , [facility] 3 17:08:59 Ankle pain 197098581 Active 2022 Benjamin Owens DPM [address], [address], [place], [address] , [facility] 3 09:42:47 Bone spur of left ankle 2931771058213 04 Active 2022 Benjamin Owens DPM [address], [address], [place], [address] , [facility] [employer] [facility] 3 09:43:01 Pain of left knee joint 7703804664029 07 Active 2023 Hallie Oliva, ATC L null, [place] [facility] 4 12:46:56 Postoperat rosamaria care Active 2023 Benjamin Owens DPM [address], [address], [place], [address] , [facility] 4 14:26:57 Foot callus 724741454 Active 2023 Benjamin Owens DPM [address], [address], [place], [address] , [facility] [place] [facility] 4 16:55:17 Arthritis 0048463 Active 2023 Candice wilkes, [place] [facility] 4 11:04:30 Ear problem 193012412 Active 2023 Candice wilkes, [place] [facility] [place] [facility] 4 11:04:51 Hyperchole sterolemia 62211949 Active 2023 Candice wilkes, [place] [facility] [place] [facility] 4 11:05:08 Pain of right knee joint 7230242668852 00 Active 2023 FRED Reyes, [place] [facility] 5 12:22:26 Pain of left wrist 3013511525736 02 Active 2023 FR[place] Reyes null, [place] [facility] [place] [facility] 4 15:08:58 Pain of left forearm 2239762217093 09 Active 2023 FRED Reyes, [facility] 4 15:09:38 Pain of right heel 4584409314339 105 Active 2023 Benjamin Owens DPM [address], [address], [place], [address] , [facility] 4 15:18:42 Pain of left ankle joint 1052270903609 9103 Active 2023 Benjamin Owens DPM [address], [address], [place], [address] , [facility] 4 15:18:58 Tendinitis of foot 898720224 Active 2023 Benjamin Owens DPM [address], [address], [place], [address] , [facility] [employer] [facility] 4 15:19:14 Osteoarthr itis of right knee joint 1084356787381 00 Active 2024 FRED Reyes, [facility] [employer] [facility] 5 11:35:37 Pain of toe of right foot 7621889074964 01 Active 2024 Benjamin Owens DPM [address], [place], [address] , [facility] [employer] [facility] 5 15:47:09 Pain of elbow region 44239285 Active 2024 FRED Reyes, [facility] [employer] [facility] 5 10:27:31 Acute ankle pain 4441583492427 5 Active 2024 Benjamin Owens DPM [address], [address], [place], [address] , [facility] [employer] [facility] 5 10:26:01 Spur of ankle bone 0459865463859 4108 Active 2024 Benjamin Owens DPM [address], [place], [address] , [facility] [employer] [facility] 5 10:26:12 Osteochond ral defect of talus 341250176 Active 2024 Benjamin Owens DPM [address], [address], [place], [address] , [facility] [employer] [facility] 5 16:17:33 Left Achilles tendinitis 0195624600405 02 Active 2024 Benjamin Owens DPM [address], [place], [address] , [facility] [employer] [facility] 5 16:20:19 Problem Notes None recorded. Procedures Surgical History Date Name Laterality Status Provider Name and Address Organization Details Recorded Time 04/24/20 25 Joint Injection-Podiatr y completed Benjamin Owens DPM [address], [address], [place], [address], [facility] 04/24/2025 15:31:31 12/27/19 25 Plantar Fascia Injection Right Foot completed Benjamin Owens DPM [address], [place], [address], [facility] 12/26/2024 14:36:33 11/02/19 24 Callus Debridement, One completed Benjamin Owens DPM [address], [place], [address], [facility] 11/02/2023 16:55:10 Carpal tunnel surgery completed Aby Jackmanison [facility] 07/31/2023 12:00:53 decompression of ulnar nerve at elbow completed Aby Jackmanison [place] [facility] [place] [facility] 07/31/2023 12:00:59 Foot Surgery completed Abykatja Lea [facility] 07/31/2023 12:01:09 delivery completed Ute Lynn [facility] 02/14/2024 11:06:49 Imaging Results None recorded. Procedure Notes None recorded. Medical Equipment None Reported. Allergies Allergen ID Allergen Name Allergen Category Reaction Reaction Severity Criticality Documentation Date Start Date Code Code System Note Provider Name and Address Organization Details Recorded Time 3931 Product containin g penicilli n (product) medicatio n itching Not available Not available 09/14/2022 65401 8001 SNOMED Not Available [facility] 3 02:51:39 3932 latex environme nt,medica tion rash Not available Not available 09/14/2022 38488 91 RxNorm Not Available [facility] 3 02:51:39 3933 Clarinex medicatio n dizziness Not available Not available 09/14/2022 52969 2 RxNorm Not Available [facility] 3 02:51:39 3934 Aleve medicatio n Not available Not available Not available 09/14/2022 84967 1 RxNorm GI distr ess Not Available [facility] 3 02:51:39 62774 loratadin e medicatio n dizziness headache Not available Not available [facility] 05/30/20252018 51063 RxNorm Not Available adriana - [employer] - prod 5 08:39:50 09486 naproxen medicatio n Not available Not available [facility] 05/30/20252015 7258 RxNorm unrec ogniz ed react ion (text : Skin React ions, code: [id number]) (from [facility]) Not Available adriana - External Data Service - [facility] 5 08:39:50 83906 Claritin medicatio n dizziness headache moderate moderate Not available 05/30/2025 78618 6 RxNorm Not Available [facility] External Data Service - [facility] 5 08:42:18 76196 deslorata dine medicatio n Not available Not available Not available 05/30/2025 29803 5 RxNorm Not Available [facility] [employer] - [facility] 5 08:42:18 Medications Name Sig Start Date [...] Updated DateTime 06/02/2025 157.48 cm 39.9 kg/m2 72995.14 g 10 FRED Reyes [facility] 06/02/2025 10:13:53 Social History Question Answer Notes LastModified by Darudar Details LastModified Time Tobacco Smoking Status Never Smoker Not Available [facility] 09/14/2022 02:34:41 What Was The Date Of Your Most Recent Tobacco Screening? 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 [id number] Information not available 09/14/2022 Mental Status [...] ICD10 Code Diagnosis IMO Codes Diagnosis Note [id number] Benjamin Owens DPM [facility] [place] [address] [facility] [address] [place] [address] 05/20/2025 15:30:24 05/21/2025 15:39:41 Pain of left ankle joint 8045548430 4598402 M25.572 x-rays left ankle x3 negative for acute injuryfail ed ankle injection- some relief but very short-live dfailed at-home physical therapy Osteochond ral defect of talus 560737226 M95.8 75988524 concerns for osteo chondral defect of the talusposit rosamaria clicking with range of motion of the ankle Left Achil les tendinitis 7185863969 55307 M76.62 3884132 at home physical therapystr etching instructio ns dispensedr ice therapymay use topical Voltaren gel over-the-c ounterstre tching exercises reviewed with the patient and dispensedf ollow-up in 2 months [id number] Chintan Cates MD [facility] [place] [address] [place] [address] 06/02/2025 10:11:56 06/02/2025 10:30:01 Pain of elbow region 30495219 M25.522 722908 Health Concerns Section Related Observation LastModified by Organization Detai ls LastModified Time None Recorded Concern Status LastModified by Organization Details LastModified Time None Recorded Payers Encounter Date Sequence Insurance Name Policy Number Policy Greenberg Covered Member ID Greenberg Member ID Guarantor Name 06/02/2025 1 [facility] (MEDICAID HMO) [id number] Nichol Guaman [id number] Nichol Guaman OBGyn Episode No OBEpisode recorded.
--- OUTSIDE RECORDS SUMMARY | 2025-07-09 13:29 | XMS_ITS | Encounter Summary ---
Author Organization [facility] Address [address] [place] [address] Care Team Providers Care Senior Research Engineer Name Role Phone Daniella Ortiz MD Primary Care Provider [phone] Reason for Visit * Reason Onset Date Comments General 07/02/2019 Encounter Details Date Type Department Care Team (Late st Contact Info) Description 07/02/2019 Telephone [facility] [address] [place] [address] [place] [address] [place] [phone] General Social History Tobacco Use Types Packs/Day Years Used Date Smoking Tobacco: Never Smokeless Tobacco: Never Alcohol Use Standard Drinks/Week Comments No 0 (1 standard drink = 0.6 oz pur e alcohol) Comments Unknown Sex and Gender Information Value Date Recorded Sex Assigned at Not on file Legal Sex Female 11:43 AM CONCIERGE Gender Identity Not on file Sexual Orientation [...] again which is 08/22/2019. Sangeetha Atwood MA. IERGE * Telephone Encounter - Sangeetha Atwood - 07/11/2019 1:31 PM CST Called patient LM to call the office back. Sangeetha Atwood MA. IERGE * Telephone Encounter - Martita Patel - 07/11/2019 1:06 PM CST Pt called wanting to know how long she is to wear the compression socks? Please advise IERGE * Telephone Encounter - Delmar Hoover - 07/04/2019 3:41 PM CST Pt called in checking on whether her report and diagnosis was suppose to be sent to her foot doctor. Her foot doctor is, Dr. Dawkins. Please Advise. IERGE documented in this encounter Plan of Treatment [...] on filedocumented in this encounter Care Teams Senior Research Engineer Relationship Specialty Start Date End Date Daniella Ortiz MD [address] [place] [address] PCP - General 10/26/15 documented as of this encounter
--- OUTSIDE RECORDS SUMMARY | 2025-07-09 13:29 | XMS_ITS | Encounter Summary ---
Author Organization [facility] Address [address] [place] [address] Care Team Providers Care Home Management Supervisor Name Role Phone Daniella Ortiz MD Primary Care Provider Reason for Visit * Reason Onset Date Comments General 07/24/2019 Encounter Details Date Type Department Care Team (Late st Contact Info) Description 07/24/2019 Telephone [facility] [address] [place] [address] [place] [address] [place] [phone] General Social History Tobacco Use Types Packs/Day Years Used Date Smoking Tobacco: Never Smokeless Tobacco: Never Alcohol Use Standard Drinks/Week Comments No 0 (1 standard drink = 0.6 oz pur e alcohol) Comments Unknown Sex and Gender Information Value Date Recorded Sex Assigned at Not on file 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 He diagnosis is concerning her foot. Please Advise. TRUCTION PLANT OPERATOR documented in this encounter Plan of [...] on filedocumented in this encounter Care Teams Home Management Supervisor Relationship Specialty Start Date End Date Daniella Ortiz MD [address] [place] [address] PCP - General 10/26/15 documented as of this encounter
--- OUTSIDE RECORDS SUMMARY | 2025-07-09 13:29 | XMS_ITS | Clinical Summary ---
Author Organization [facility] [place] Address [address] [place] [address] Care Team Providers Care Out And Out Cigar Maker Hand Name Role Phone Daniella Ortiz MD Primary Care Provider [phone] Source Comments [facility] [place],non-[facility] Affiliates and Associated Physician Practices is amultiple site organization consisting of ambulatory clinics and hospital sitesin [place], [place], [place] and [place]. This disclosure is being madepursuant to the Care Everywhere program and may not contain all information available regarding this patient. 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 Interventions: Medical Devices Implanted Type Area Sewer Pipe Offbearer Device Identifier Shelf Expiration Date Model / Serial / Lot Plate Comp Shtng Ulna Ostm Bone Implanted:Qty: 1 on 12/23/2019 by Jeffrey Varghese MD at [facility] [employer] UOCP / / Screw 3.2mm 12mm Hex Cortx Nonster Ankl Implanted:Qty: 2 on 12/23/2019 by Jeffrey Varghese MD at [facility] [employer] HEX3.2-12 / / Scrw Lag Lg 3.2mm X 16mm Implanted:Qty: 1 on 12/23/2019 by Jeffrey Varghese MD at [facility] [employer] LAG3.2-16 / / Screw 3.2mm 10mm Lck Frarm Elb Lg Bone Implanted:Qty: 3 on 12/23/2019 by Jeffrey Varghese MD at [facility] [employer] LCBS3.2-10 / / Screw 3.2mm 12mm Lck Frarm Elb Lg Bone Implanted:Qty: 1 on 12/23/2019 by Jeffrey Varghese MD at [facility] [employer] LCBS3.2-12 / / Prtc 7mm Axoguard Tissue 40mm Prcn Xclr Implanted:Qty: 1 on 12/23/2019 by Jeffrey Varghese MD at [facility] [employer] 04/20/2020 [id number] / / [id number] Integra Neuragen Nerve Guide Implanted:Qty: 2 on 05/19/2020 by Hamilton Valera MD at [facility] Left: Wrist Integra [employer] Gabriela 03/16/2022 [id number] / / [id number] Integra Neuragen Nerve Guide Implanted:Qty: 1 on 05/19/2020 by Hamilton Valera MD at [facility] Left: Elbow Integra [employer] 04/15/2022 [id number] / / [id number] Integra Neuragen Nerve Guide Implanted:Qty: 1 on 05/19/2020 by Hamilton Valera MD at [facility] Left: Elbow [employer] 03/16/2022 [id number] / / [id number] Neuragen Nerve Guide Implanted:Qty: 3 on 12/29/2020 by Hamilton Valera MD at [facility] Right: Arm Integra [employer] 05/16/2022 [id number] / / [id number] Procedures Procedure Name Priority Date/Time Associated Diagnosis Comments GLUCOSE - POINT OF CARE Routine 12/29/2020 6:05 AM CDT from Last 3 Months or Most Recently Relevant to Health Maintenance Results * (ABNORMAL) GLUCOSE - POINT OF CARE (12/29/2020 6:05 AM CDT) [facility] Glucose WB/POC 118(H) 70 - 106 mg/dL 12/29/2020 6:[address] [facility] Specimen Type Venous 12/29/2020 6:[address] [facility] Blood BLOOD SPECIMEN / Unknown 12/29/2020 6:05 AM CDT 12/29/2020 6:14 AM CDT Hamilton Valera MD LAB - POINT OF CARE ORDERABLES F inal Result [facility] [address] [place], [place] [id number] from Last 3 Months or Most Recently Relevant to Health Maintenance [facility] Advance Directives * Full Code (Latest Code Status on File) Date Activated Date Inactivated Comments 05/19/2020 6:07 AM 05/19/2020 2:04 PM Care Teams Out And Out Cigar Maker Hand Relationship Specialty Start Date End Date Daniella Ortiz MD [address] [place] [phone] PCP - General 10/26/15
== END 2025-07-09 13:24 | disposition home or self-care (01) ==
PROVIDERS: PCP Internal Medicine; Visit Provider Podiatrist Foot & Ankle Surgery
DX: M19.072 Primary osteoarthritis, left ankle and foot (principal); M95.8 Other specified acquired deformities of musculoskeletal system; R60.9 Edema, unspecified; M65.872 Other synovitis and tenosynovitis, left ankle and foot
CPT/HCPCS: 73721